=== PATIENT | male | born 1950 | race Caucasian/White ===

== ENCOUNTER 2023-07-27 01:46 | Outpatient (RCR) | payer OTHER, SELFPAY ==
--- OUTSIDE RECORDS SUMMARY | 2023-07-25 09:01 | XMS_ITS | Continuity of Care Document ---
Author Name Unknown Organization [facility] Address [address] [place] [address] Care Team Providers Care Lockstitch Hemmer Name Role Phone Gregory Masterson Primary Care Physician Encounter [facility] Date(s): 06/09/23 - 06/09/23 [facility] [address] [place] [address] Discharge Disposition: Home Allergies, Adverse Reactions, Alerts No Known Medication Allergies Assessment and Plan Future Appointments Future Scheduled Tests Radiology* CT Abdomen and Pelvis w/ Contrast 06/09/23 Immunizations Given and Recorded Vaccine Date Status Refusal Reason SARS-CoV-2 (COVID-19) mRNA-1273 vaccine 12/18/20 R ecorded SARS-CoV-2 (COVID-19) mRNA-1273 vaccine 11/17/20 R ecorded tetanus/diphth/pertuss (Tdap) adult/adol 11/17/12 Recorded tetanus-diphth toxoids (Td) adult/adol 03/03/99 Re corded Medications losartan 100 mg oral tablet 100 mg = 1 tab, Oral, Daily, # 30 tab, 0 Refill(s) Start Date: 04/22/22 Status: Ordered Problem List Condition Confirmation Course Effective Dates Status Health St atus Informant Benign essential hypertension Confirmed 01/29/19 Active Calcific tendinitis of shoulder Confirmed Active Dizziness and giddiness Confirmed Active Increased frequency of urination Confirmed 10/30/18 Active Raised prostate specific antigen Confirmed 10/22/21 Active Shoulder joint pain Confirmed Active Social History Social History Type Response Tobacco Former tobacco user Tobacco Use:. 1 Sex Male 1Pt quit 35 years ago Patient Care team information Care Team Personnel Name: Gregory Masterson PA Position: Physician Member Role: Primary Care Physician Address: Address: [address] [place] [id number]
--- OUTSIDE RECORDS SUMMARY | 2023-07-25 09:01 | XMS_ITS | Continuity of Care Document ---
Author Name Unknown Organization [facility] Address [address] [place] [address] Care Team Providers Care Finisher Merchant Products Name Role Phone Gregory Masterson Primary Care Physician [phone] Encounter [facility] Date(s): 06/06/23 - 06/06/23 [facility] [address] [place] [address] Discharge Disposition: Home or Self Care Attending Physician: Gregory Masterson Admitting Physician: Gregory Masterson Referring Physician: Gregory Masterson Allergies, Adverse Reactions, Alerts No Known Medication Allergies Assessment and Plan Future Appointments Future Scheduled Tests Radiology* CT Abdomen w/ Contrast 06/06/23 Immunizations Given and Recorded Vaccine Date Status [...] 10/22/21 Active Shoulder joint pain Confirmed Active Results Laboratory List Name Date Automated Diff 06/06/23 CBC w/ Diff 06/06/23 Comprehensive Metabolic Panel (CMP) PSA Screen 06/06/23 Most recent to oldest [Reference Range]: 1 WBC [5.0-10.0 x10^3/mcL] 6.7 x10^3/mcL (06/06/23 2:51 PM) RBC [4.6-6.0 x10^6/mcL] 4.8 x10^6/mcL (06/06/23 2:51 PM) Neutro Auto [40.0-75.0 %] 65.3 % (06/06/23 2:51 PM) Lymph Auto [20.0-50.0 %] 21.2 % (06/06/23 2:51 PM) [place] Auto [2.0-15.0 %] 10.1 % (06/06/23 2:51 PM) Basophil Auto [0.0-1.0 %] 0.6 % (06/06/23 2:51 PM) BUN [7-18 mg/dL] 11 mg/dL (06/06/23 2:51 PM) Glucose Level [74-106 mg/dL] 96 mg/dL (06/06/23 2:51 PM) Potassium Level [3.5-5.1 mmol/L] 4.0 mmo l/L (06/06/23 2:51 PM) MCV [80.0-96.0 fL] 89.4 fL (06/06/23 2:51 PM) AST [15-37 unit/L] 11 unit/L *LOW* (06/06/23 2:51 PM) ALT [16-63 unit/L] 14 unit/L *LOW* (06/06/23 2:51 PM) MCHC [31.0-35.0 g/dL] 34.0 g/dL (06/06/23 2:51 PM) Sodium Level [136-145 mmol/L] 140 mmol/L (06/06/23 2:51 PM) Hct [41.0-51.0 %] 42.9 % (06/06/23 2:51 PM) Calcium Level [8.5-10.1 mg/dL] 8.7 mg/dL (06/06/23 2:51 PM) Albumin Level [3.4-5.0 g/dL] 3.4 g/dL (06/06/23 2:51 PM) Protein Total [6.4-8.2 g/dL] 6.9 g/dL (06/06/23 2:51 PM) MCH [26.0-32.0 pg] 30.4 pg (06/06/23 2:51 PM) Neutro Absolute 4.4 x10^3/mcL *NA* (06/06/23 2:51 PM) Bilirubin Total [0.2-1.0 mg/dL] 0.3 mg/d L (06/06/23 2:51 PM) Hgb [14.0-18.0 g/dL] 14.6 g/dL (06/06/23 2:51 PM) Alk Phos [46-146 unit/L] 122 unit/L (06/06/23 2:51 PM) Platelets [130-450 x10^3/mcL] 212 x10^3/ mcL (06/06/23 2:51 PM) CO2 [21-32 mmol/L] 28 mmol/L (06/06/23 2:51 PM) eGFR Non-AA [>=60] 77 (06/06/23 2:51 PM) eGFR AA [>=60] 77 (06/06/23 2:51 PM) Chloride Level [98-107 mmol/L] 106 mmol/ L (06/06/23 2:51 PM) RDW-CV [11.5-14.5 %] 12.3 % (06/06/23 2:51 PM) Imm Gran Auto [0.0-0.9 %] 0.1 % (06/06/23 2:51 PM) Creatinine Level [0.70-1.30 mg/dL] 1.03 mg/dL (06/06/23 2:51 PM) PSA Total Screening [0.00-4.00 ng/mL] 6. 92 ng/mL 1 *HI* (06/06/23 2:51 PM) Eos, Auto [1.0-6.0 %] 2.7 % (06/06/23 2:51 PM) 1Interpretive Data: The testing method is an heterogeneous enzyme Immunoassay manufactured by [employer] and performed on the [employer] system. Values obtained with different assay methods or kits may be different and cannot be used interchangeably. Test results cannot be interpreted as absolute evidence for the presence or absence of malignant disease. Social History Social History Type Response Tobacco Former tobacco user Tobacco Use:. 1 Sex Male 1Pt quit 35 years ago Patient Care team information Care Team Personnel Name: Gregory Masterson Position: Physician Member Role: Primary Care Physician Address: Address: [address] [place] [phone]
--- OUTSIDE RECORDS SUMMARY | 2023-07-25 09:01 | XMS_ITS | Continuity of Care Document ---
Author Name Unknown Organization [facility] Address [address] [place] [address] Care Team Providers Care Rn Mds Coordinator Name Role Phone Gregory Masterson Primary Care Physician Encounter [facility] Date(s): 06/13/23 - 06/13/23 [facility] [address] [place] [address] Discharge Disposition: Home Allergies, Adverse Reactions, Alerts No Known Medication Allergies Assessment and Plan Future Appointments Future Scheduled Tests Radiology* CT Brain/Head w/ Contrast 06/13/23 * CT Chest w/ Contrast 06/13/23 * CT Abdomen and Pelvis w/ Contrast 06/09/23 Immunizations Given and Recorded Vaccine Date Status Refusal Reason SARS-CoV-2 (COVID-19) mRNA-1273 vaccine 12/18/20 R ecorded SARS-CoV-2 (COVID-19) mRNA-1273 vaccine 11/17/20 R ecorded tetanus/diphth/pertuss (Tdap) adult/adol 11/17/12 Recorded tetanus-diphth toxoids (Td) adult/adol 03/03/99 Re corded Medications ciprofloxacin 500 mg oral tablet See Instructions, Take 2 tabs at 4 pm, 7pm and 11 pm the day before surgery, # 6 tab, 0 Refill(s), Pharmacy: [id number], 175, cm, 06/13/23 10:15:00 EDT, Height/Length Dosing, 84, kg, 06/13/23 10:15:00 EDT, Weight Dosing Start Date: 06/13/23 Status: Ordered losartan 100 mg oral tablet 100 mg = 1 tab, Oral, Daily, # 30 tab, 0 Refill(s) Start Date: 04/22/22 Status: Ordered metroNIDAZOLE 500 mg oral tablet See Instructions, Take 2 tabs at 4 pm, 7pm and 11 pm the day before surgery, # 6 tab, 0 Refill(s), Pharmacy: [id number], 175, cm, 06/13/23 10:15:00 EDT, Height/Length Dosing, 84, kg, 06/13/23 10:15:00 EDT, Weight Dosing Start Date: 06/13/23 Status: Ordered Problem List Condition Confirmation Course [...] Member Role: Primary Care Physician Address: Address: [address] [place] [phone] [place] Care Team Related Persons Name: PIYUSH SOLARES
--- OUTSIDE RECORDS SUMMARY | 2023-07-25 09:01 | XMS_ITS | Continuity of Care Document ---
Author Name Unknown Organization [facility] Address [address] [place] [address] Care Team Providers Care Bacon Stringer Name Role Phone Gregory Masterson Primary Care Physician [phone] Encounter [facility] Date(s): 06/17/23 - 06/24/23 [facility] [address] [place] [address] Encounter Diagnosis Mass of colon(Discharge Diagnosis) - 06/17/23 Change in bowel habit(Discharge Diagnosis) - 06/17/23 Abdominal carcinomatosis(Discharge Diagnosis) - 06/17/23 Benign hypertension(Discharge Diagnosis) - 06/20/23 Discharge Disposition: Home or Self Care Attending Physician: Simone Gutierres MD Admitting Physician: Simone Gutierres MD Referring Physician: Simone Gutierres MD Allergies, Adverse Reactions, Alerts No Known Medication Allergies Assessment and Plan Future Appointments Future Scheduled Tests Radiology* CT Brain/Head w/ + w/o Contrast 06/16/23 * CT Chest w/ Contrast 06/13/23 * CT Abdomen and Pelvis w/ Contrast 06/09/23 Functional Status 06/22/23 Lunch Percent 25 06/22/23 Personal Care Provided Gown change, Hair care, Linen change, Shampoo, Shower, Underpad change 06/20/23 Living Environment No Living Environmen t Information Available Lives In Single level home 1 Lives With Alone Living Situation Home independently Home Barriers None Patient's Responsibilities Caregiver for pet, Other: Reports being (I) with all needs prior to hospitalization. 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 06/19/23 Anti-Embolism Device Activity: Removed Anti-Embolism Device Removal Reason: Act ivity 06/17/23 Anti-Embolism Site Condition: No complic ations 06/17/23 Family Member Travel History No recent t ravel Recent Travel History No recent travel Other exposure to Infectious Disease Non e 1Result Comment: Single level log home with loft. Immunizations Given and Recorded Vaccine Date Status Refusal Reason SARS-CoV-2 (COVID-19) mRNA-1273 vaccine 12/18/20 R ecorded SARS-CoV-2 (COVID-19) mRNA-1273 vaccine 11/17/20 R ecorded tetanus/diphth/pertuss (Tdap) adult/adol 11/17/12 Recorded tetanus-diphth toxoids (Td) adult/adol 03/03/99 Re corded Medications Dilaudid 2 mg oral tablet 2 mg = 1 tab, Oral, every 4 hr, PRN as needed for pain, # 10 tab, 0 Refill(s), Pharmacy: [facility], 175, cm, 06/17/23 14:35:00 EDT, Height/Length Dosing, 81.4, kg, 06/17/23 14:35:00 EDT, Weight Dosing Start Date: 06/24/23 Stop Date: 07/01/23 Status: Ordered losartan 100 mg oral tablet 100 mg = 1 tab, Oral, Daily, # 30 tab, 0 Refill(s) Start Date: 04/22/22 Status: Ordered ondansetron 4 mg oral tablet, disintegrating 4 mg = 1 tab, Oral, every 8 hr, PRN as needed for nausea/vomiting, # 12 tab, 0 Refill(s), Pharmacy:[facility], 175, cm, 06/17/23 14:35:00 EDT, Height/Length Dosing, 81.4, kg, 06/17/23 14:35:00 EDT, Weight Dosing Start Date: 06/24/23 Stop Date: 07/01/23 Status: Ordered pantoprazole 20 mg oral delayed release tablet 20 mg = 1 tab, Oral, Daily, # 21 tab, 0 Refill(s), Pharmacy: [facility], 175, cm, 06/17/23 14:35:00 EDT, Height/Length Dosing, 81.4, kg, 06/17/23 14:35:00 EDT, Weight Dosing Start Date: 06/24/23 Stop Date: 07/15/23 Status: Ordered Urinoziil Prostate Health Complex Classic 1 cap, Oral, Daily, 0 Refill(s) Start Date: 06/16/23 Status: Ordered Problem List Condition Confirmation Course Effective Dates Status Health St atus Informant Benign essential hypertension Confirmed 01/29/19 Active Benign prostatic hyperplasia Confirmed 05/22/17 Active Calcific tendinitis of shoulder Confirmed Active Dizziness and giddiness Confirmed Active Dyspnea Confirmed 05/22/17 Active Dysuria Confirmed 05/22/17 Active Increased frequency of urination Confirmed 10/30/18 Active Raised prostate specific antigen Confirmed 10/22/21 Active Shoulder joint pain Confirmed Active Vitamin D deficiency Confirmed 05/22/17 Active Procedures Procedure Date Related Diagnosis Body Site Status Shoulder repair Completed Results Laboratory List Name Date Basic Metabolic Panel (BMP) 06/21/23 Magnesium Level 06/21/23 SARS-CoV-2 (COVID-19) RNA (ID Now) [facility] 06/17/23 CEA [facility] 06/17/23 ABO/Rh 06/17/23 Antibody Screen Gel 06/17/23 Most recent to oldest [Reference Range]: 1 BUN [7-18 mg/dL] 14 mg/dL (06/21/23 7:28 AM) ABO/Rh Type O NEG *Unknown* (06/17/23 7:17 AM) Glucose Level [74-106 mg/dL] 108 mg/dL *HI* (06/21/23 7:28 AM) Potassium Level [3.5-5.1 mmol/L] 3.5 mmo l/L (06/21/23 7:28 AM) Sodium Level [136-145 mmol/L] 141 mmol/L (06/21/23 7:28 AM) Calcium Level [8.5-10.1 mg/dL] 8.8 mg/dL (06/21/23 7:28 AM) Magnesium Level [1.8-2.4 mg/dL] 2.0 mg/d L (06/21/23 7:28 AM) CO2 [21-32 mmol/L] 28 mmol/L (06/21/23 7:28 AM) eGFR Non-AA [>=60] 81 (06/21/23 7:28 AM) eGFR AA [>=60] 81 (06/21/23 7:28 AM) Chloride Level [98-107 mmol/L] 106 mmol/ L (06/21/23 7:28 AM) Creatinine Level [0.70-1.30 mg/dL] 0.99 mg/dL (06/21/23 7:28 AM) Antibody Screen Gel Negative [facility] (06/17/23 7:17 AM) SARS-CoV-2 (COVID-19) RNA (ID Now) [Not Detected] Not Detected (06/17/23 12:46 PM) CEA [facility] [See Note ng/mL] 28.3 ng/mL 1 *NA* (06/17/23 7:58 AM) Path Report [facility] (See below) 2 *NA* (06/17/23 9:39 AM) 1Result Comment: % Distribution of CEA (ng/mL): 0.0 - 2.5 in 98.2% of Nonsmokers and 87.3% of Smokers 2.6 - 5 in 1.8% of Nonsmokers and 8% of Smokers 5.1 - 10.1 in 4.7% of Smokers NOTE: Serum CEA concentration should not be interpeted as absolute evidence for the presence or absence of malignant disease. Assayed on Siemens ADVIA Centaur XPT using chemiluminescent technology. Values obtained by different assay methods cannot be used interchangeably. [id number]: must be drawn PREOP Test performed [place] [address] 2Result Comment: NOTE TO PATIENT The following pathology results have been interpreted by your pathologist and may be available to you before your health provider has had the opportunity to review them. Please allow time for your provider to receive these results and explore management options, if applicable. AP FINAL DIAGNOSIS A. COLON, CECUM, MASS, BIOPSY: - Fragments of tubulovillous adenoma. B. 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 - AJCC 8th Edition Staging: pT4a, pN1b, pM1c. See synoptic report. - See comment. FINAL DIAGNOSIS COMMENT RESULTS OF IMMUNOHISTOCHEMICAL STAINING: Retained expression of MLH1, PMS2, MSH2 and MSH6 INTERPRETATION: These results are indicative of normal DNA mismatch repair function within the tumor. This patient most likely does not have Higgins syndrome. However, it is important to note that 3-10% of Higgins syndrome patients may reveal retained expression of mismatch repair proteins due to mutation in other genes. Hence these findings should be interpreted in the context of family and clinical history. If results do not match clinicopathologic findings, molecular testing (specifically microsatellite instability by PCR) can be ordered upon obtaining preauthorization or an advanced beneficiary notice. ANTIBODY (CLONE) (BLOCK): RESULT MLH1 (M1, [place]) (block B9): Retained expression in tumor PMS2 (A16-4, [place]) (block B9): Retained expression in tumor MSH2 (Y052-2289, [place]) (block B9): Retained expression in tumor MSH6 (SP93, [place]) (block B9): Retained expression in tumor Internal controls: Adequate NOTE: One or more of the reagents used in immunohistochemical testing in this case may not have been cleared or approved by the U.S. Food and Drug Administration (FDA). The FDA has determined that such clearance or approval is not necessary. These tests are used for clinical purposes. They should not be regarded as investigational or for research. These reagents' performance characteristics have been determined by [facility] and/or by the referring laboratory. The positive and negative controls worked appropriately. This laboratory is certified under the Clinical Laboratory Improvement Amendments of 1988 (CLIA-88) as qualified to perform high complexity clinical laboratory testing. The solid tumor gene panel test has been ordered. The results of this test will be documented in a separate report. Actuarial Associate slides of this case were reviewed at the gastrointestinal/liver intradepartmental consultation conference. (, JK, DK) ATTESTATION There was significant resident/fellow involvement in the diagnostic evaluation of this case. By the signature below, the attending physician certifies that they have personally conducted a gross and/or microscopic examination of the described specimens and rendered or confirmed the above diagnosis. at 1629 SYNOPTIC CHECKLIST COLON AND RECTUM: Resection, Including Transanal Disk Excision of Rectal Neoplasms COLON AND RECTUM: RESECTION - B 8th Edition - Protocol posted: 04/24/2022 SPECIMEN Procedure: Right hemicolectomy TUMOR Tumor Site: Ascending colon Histologic Type: Mucinous adenocarcinoma Histologic Grade: G2, moderately differentiated Tumor Size: Greatest dimension (Centimeters): 6.0 cm Tumor Extent: Invades visceral peritoneum Macroscopic Tumor Perforation: Not identified Lymphovascular Invasion: Not identified Perineural Invasion: Not identified Treatment Effect: No known presurgical therapy MARGINS Margin Status for Invasive Carcinoma: Invasive carcinoma present at margin Margin(s) Involved by Invasive Carcinoma: Proximal Margin(s) Involved by Invasive Carcinoma: Radial (circumferential) or mesenteric Margin Status for Non-Invasive Tumor: Not applicable REGIONAL LYMPH NODES Regional Lymph Node Status: : Tumor present in regional lymph node(s) Number of Lymph Nodes with Tumor: 2 Number of Lymph Nodes Examined: 12 Tumor Deposits: Present Number of Tumor Deposits: 2 DISTANT METASTASIS Distant Site(s) Involved: Peritoneum, Omentum PATHOLOGIC STAGE CLASSIFICATION (pTNM, AJCC 8th Edition) Reporting of pT, pN, and (when applicable) pM categories is based on information available to the pathologist at the time the report is issued. As per the AJCC (Chapter 1, 8th Ed.) it is the managing physician's responsibility to establish the final pathologic stage based upon all pertinent information, including but potentially not limited to this pathology report. pT Category: pT4a pN Category: pN1b pM Category: pM1c ADDITIONAL FINDINGS Additional Findings: None identified CLINICAL HISTORY Cecal mass, carcinomatosis GROSS DESCRIPTION A. Received in formalin labelled with proper patient identification (initials G, L) and cecal mass is a 0.4 x 0.3 x 0.1 cm irregular pale daly soft tissue. Submitted in toto in A1. B. Received in formalin labelled with proper patient identification (initials G, L) and right colon and greater omentum is a 25cm segment of right colon (2 cm ileum +23 cm colon with a moderate amount of attached fat (3.5 cm in depth). The serosa is dark daly-purple and the fat is focally hemorrhagic. The cecal serosa is remarkable for a 2.3 x 1.3 cm cystic/nodular lesion (inked in blue). There is a 5.2 cm in length, 0.6 cm in diameter appendix, firmly adhered to the fat. There is some subtle nodularity at the proximal end and fat alongside (inked black) The the proximal and resection ends are stapled. Opening shows a 6.0 x 4.7 x 1.0 cm bosselated/fungating slightly friable red-daly tumor in the cecal pouch/cecum, 2.7 cm from the proximal resection margin, 15 cm from the distal resection margin, 0.7 cm from the circumferential margin and 4.5 cm from the mesenteric root. The tumor involves much of the ileocecal valve. It does not appear to involve the appendiceal os. Sectioning through the lesion shows a soft pink to firm white mucinous cut surface with invasion through the wall into the fat and a few satellite areas abutting the peritoneal surface. The lesion obliterates the appendiceal tip. The rest of the ileal and colonic mucosa are unremarkable the ileum is 4 cm in circumference and the colon is 7.5 cm. The fat is sectioned and palpated showing few nodes ranging from 0.3 cm-0.7 cm. There is a piece of indurated congested omental apron caked by tumor, measuring overall 25 x 11.5 x 3.5 cm. Sectioning shows multiple nodules measuring up to 3 cm in greatest dimension. There is also diffuse fat necrosis. Also received is a 4.5 x 2.3 x 1.7 cm piece of bowel with ligia and exposed dark daly mucosa. There are also 2 hemorrhagic indurated pieces of fatty tissue measuring together 5.5 x 3.5 x 2.2 cm. Sectioning shows focal areas of what looks like fat necrosis. Actuarial Associate sections are submitted as follows: BLOCK MERINO B1- proximal and distal resection margins, shaved, 2 pieces B2- shaved mesenteric resection margin B3- ICV B4- appendix cross-sections x3 B5- appendiceal os B6- appendiceal tip B7- tumor to inked serosa (blue) and fat (partial circumferential margin-black) B8-B9- tumor to fat and inked serosa/nodular area, continuous section B10- uninvolved colon B11- fat with lymph node, satellite nodules, vessels (peritoneal surface inked in black) B12- one node, trisected B13- nodes/possible nodes x4 B14- nodes/possible nodes x3 B15-B22- fat with possible microscopic node B23-B24- omentum, 3 pieces B25- additional fragment of fatty tissues x2 and segment of bowel, 3 pieces BALDO Chilel(ASCP) 06/19/2023 0:36 TRAINEE/RESIDENT/FELLOW: Dillon Alston MD AP PERFORMING LAB [facility] End of Report Disclaimers: 1) Reports generated via electronic interface contain original data; however they are lacking the format of the original report. Caution should be taken when reading/interpreting unformatted reports. 2) Please reference the paper report if the text (End of Report) is not displayed. [id number]: Cecal Mass Biopsy, Right Colon and greater Omentum\E\.br\E\One Container Test performed [place] [address] Vital Signs Most recent to oldest [Reference Range]: 1 2 3 Temperature Temporal Artery [36-38 Deg C] 36.7 Deg C (06/24/23 10:20 AM) 36.7 Deg C (06/24/23 6:37 AM) 36.6 Deg C (06/24/23 1:17 AM) Temperature Temporal Artery (DegF) [97.3-100 Deg F] 98.24 Deg F (06/18/23 2:40 PM) 97.16 Deg F *LOW* (06/17/23 1:30 PM) 95.9 Deg F *LOW* (06/17/23 10:58 AM) Peripheral Pulse Rate [60-100 bpm] 72 bpm (06/24/23 10:20 AM) 69 bpm (06/24/23 6:37 AM) 69 bpm (06/24/23 1:17 AM) Heart Rate Monitored [60-100 bpm] 87 bpm (06/17/23 2:19 PM) 80 bpm (06/17/23 1:30 PM) 88 bpm (06/17/23 1:15 PM) Respiratory Rate [12-24 br/min] 16 br/min (06/24/23 10:20 AM) 17 br/min (06/24/23 6:37 AM) 18 br/min (06/24/23 1:17 AM) Blood Pressure [90-140/60-90 mmHg] 153/87mmHg *HI* (06/24/23 10:20 AM) 177/93mmHg *HI* (06/24/23 6:37 AM) 170/90mmHg *HI* (06/24/23 1:17 AM) Mean Arterial Pressure, Cuff [65-140 mmHg] 78 mmHg (06/17/23 1:30 PM) 74 mmHg (06/17/23 1:15 PM) 73 mmHg (06/17/23 1:00 PM) Mean Arterial Pressure Cuff 105 mmHg (06/24/23 10:20 AM) 111 mmHg (06/24/23 6:37 AM) 111 mmHg (06/23/23 6:39 PM) Blood Pressure Location Left arm (06/18/23 6:40 AM) Weight 81.2 kg (06/24/23 6:37 AM) 86.9 kg (06/19/23 6:25 AM) 81.400 kg (06/17/23 2:34 PM) Weight Dosing 81.400 kg (06/17/23 2:34 PM) 81.400 kg (06/17/23 6:44 AM) Weight Estimated 84.00 kg (06/16/23 1:20 PM) Height 175.000 cm (06/17/23 2:34 PM) 175.000 cm (06/17/23 6:44 AM) Height/Length Dosing 175.000 cm (06/17/23 2:34 PM) 175.000 cm (06/17/23 6:44 AM) Body Mass Index 26.580 kg/m2 (06/17/23 2:34 PM) 26.580 kg/m2 (06/17/23 6:44 AM) Social History Social History Type Response Tobacco Former tobacco user Tobacco Use:. 1 Sex Male 1Pt quit 35 years ago Hospital Discharge Instructions Patient Education 06/24/2023 08:55:29 MK [facility] ([facility]) POST- OPERATIVE DISCHARGE INSTRUCTIONS Follow-up in the [facility] office in about 7-10 days. Please call [phone] to schedule/confirm appointment. Wound Care Keep incisions clean and dry. You may shower and wash gently with soap and water. No dressings necessary. Gwinner will be removed during postop visit. No tub baths or swimming until the wound has completely closed. Report to your physician any leakage of pus from the incision or increased redness or swelling around the incision. Activity No lifting greater than 10 lbs. or strenuous activity for 4 weeks. Walking, light activity is encouraged. Continue using incentive spirometer at home. Diet Eat a low fiber diet for 3-4 days, then transition back to a regular diet. As we discussed, focus on avoiding bulky food or raw foods/vegetables. No need to read food labels. If Constipated: Take prune juice OR Miralax daily until normal bowel movements return. Pain Control & Medications Continue taking stool softeners, such as Docusate (typically 100mg 1-2x per day) Take over the counter pain medication for pain control (acetaminophen AND ibuprofen can be taken simultaneously). If you need additional medication for pain control, please use the prescribed opioid (Dilaudid). Ice packs to incisions for 20 minutes every hour as needed. Simethicone (Gas-X) as needed for gas pain. Zofran (ondansetron) for nausea as needed. Miscellaneous Report any fever >101?? F. Report any problems with urination to your physician. For mild irritation at IV site: a. Apply warm, moist pack to area for 20 minutes four times a day for 2-3 days. b. Call doctor for persistent redness and/or drainage at IV site. In the event of any problems after surgery, do not hesitate to contact your doctor, [facility] , or the Emergency Room at [phone]. Follow Up Care 06/16/2023 10:59:42 With:Simone Gutierres MD Address: [address] [address]- When:07/04/2023 08:15:00 Comments:Hospital follow up With:Gregory Masterson Address: [address] [place] [id number] When:07/04/2023 09:20:00 Comments:Hospital follow up Discharge instructions * Toshia Marina: PERFORM Event Display: Discharge Instructions Authored Date: [id number] AMADO SOLARES :1950 Age:73 years Sex:Male Visit Date:06/17/2023 Primary Care Physician: Gregory Masterson Hospital Discharge Instructions We would like to thank you for allowing us to assist you with your healthcare needs. The following includes patient education materials and information regarding your injury/illness. Your Next Steps Follow Up Appointments Follow Up with??Simone Gutierres MD When:??07/04/2023 09:15 AM EDT Why: Hospital follow up Where: [address] [address]- Follow Up with??Gregory Masterson When:??07/04/2023 10:20 AM EDT Why: Hospital follow up Where: [address] [place] [address] Medications What How Much When Instructions Next Dose New HYDROmorphone (Dilaudid 2 mg oral tablet) 1 tab Oral (given by mouth) Every 4 hours as needed for as needed for pain Duration: 7 Days Pickup at [facility] as needed New ondansetron (ondansetron 4 mg oral tablet, disintegrating) 1 tab Oral (given by mouth) Every 8 hours as needed for as needed for nausea/vomiting Duration: 7 Days Pickup at [facility] as needed New pantoprazole (pantoprazole 20 mg oral delayed release tablet) 1 tab Oral (given by mouth) Every day Duration: 21 Days Pickup at [facility] 06/25 @ 0730 Changed multivitamin with minerals (Urinozinc Prostate Health Complex Classic) 1 Capsules Oral (given by mouth) Every day resume Unchanged losartan (losartan 100 mg oral tablet) 1 tab Oral (given by mouth) Every day 06/24 @ 6pm Pharmacy Information [facility]: [address] [place], [place] [id number] [phone] ?? What How Much When Comments Stop Taking ciprofloxacin (ciprofloxacin 500 mg oral tablet) See instructions Take 2 tabs at 4 pm, 7pm and 11 pm the day before surgery ?? Stop Taking metroNIDAZOLE (metroNIDAZOLE 500 mg oral tablet) See instructions Take 2 tabs at 4 pm, 7pm and 11 pm the day before surgery ?? Your Summary Your Care Team Admitting Physician - Simone Gutierres MD Attending Physician - Simone Gutierres MD Primary Care Physician - Gregory Masterson Referring Physician - Simone Gutierres MD Your Diagnosis Abdominal carcinomatosis Benign hypertension Change in bowel habit Mass of colon Procedures Performed ???Shoulder repair 06/17/2023- Omenectomy/Right open colectomy with Dr. Simone Gutierres Discharge Vitals Temperature??(Temporal Artery) 98.1 ??F (36.7 ??C) Heart Rate??(Peripheral) 72 Respiratory Rate?? 16 Blood Pressure?? 153/87?? Weight?? 179.05 lb (81.2 kg) Education Materials POST- OPERATIVE DISCHARGE INSTRUCTIONS Follow-up in the [facility] office in about 7-10 days. Please call [phone] to schedule/confirm appointment. ? Wound Care Keep incisions clean and dry. You may shower and wash gently with soap and water. No dressings necessary. Ligia will be removed during postop visit. No tub baths or swimming until the wound has completely closed. Report to your physician any leakage of pus from the incision or increased redness or swelling around the incision. ? Activity No lifting greater than 10 lbs. or strenuous activity for 4 weeks. Walking, light activity is encouraged. Continue using incentive spirometer at home. ? Diet Eat a low fiber diet for 3-4 days, then transition back to a regular diet. As we discussed, focus on avoiding bulky food or raw foods/vegetables. No need to read food labels. If Constipated: Take prune juice OR Miralax daily until normal bowel movements return. ? Pain Control & Medications Continue taking stool softeners, such as Docusate (typically 100mg 1-2x per day) Take over the counter pain medication for pain control (acetaminophen AND ibuprofen can be taken simultaneously). If you need additional medication for pain control, please use the prescribed opioid (Dilaudid). Ice packs to incisions for 20 minutes every hour as needed. Simethicone (Gas-X) as needed for gas pain. Zofran (ondansetron) for nausea as needed. ? Miscellaneous Report any fever >101?? F. Report any problems with urination to your physician. For mild irritation at IV site: a. Apply warm, moist pack to area for 20 minutes four times a day for 2-3 days. b. Call doctor for persistent redness and/or drainage at IV site. In the event of any problems after surgery, do not hesitate to contact your doctor, [facility] , or the Emergency Room at [phone]. Patient/Actuarial Associate Signature Patient Name:AMADO SOLARES I have received this information and my questions have been answered. Patient/Actuarial Associate Name: Patient/Actuarial Associate Signature: Relationship to Patient: Witness Name/Signature: Date: Electronically Signed on: 06/24/2023 11:19 EDTSigned by:MARTHA Consult note * Quinotn Spann DO: PERFORM Event Display: Consultation Note Generic Authored Date: [id number] AMADO SOLARES :1950 Age:73 years Sex:Male Visit Date:06/17/2023 Primary Care Physician: Gregory Masterson Chief Complaint Abdominal pain History of Present Illness 73-year-old man??with a history of??hypertension??has had surgery??for stage IV??colon cancer and has undergone??colectomy. ?? Today it was noted that his??blood pressure??was high.?? His home medication??which is??losartan was restarted. ?? He has been getting scheduled ketorolac for pain control. ?? Kidney function was normal when last checked??a week ago. ?? Plan is for him to discharge to home on Friday and follow-up with oncology as an outpatient. ?? He reports his twin sister of lung cancer??almost a year ago and this is very??emotionally difficult for him. ?? He tells me his blood pressure typically runs about 170/100??although it has been better??here??on no medication. ?? He has not had any difficulty??with symptoms attributable to hypertension. Review of Systems Denies chest pain, dyspnea, palpitations, dizziness, headaches, sudden visual changes, cough, or new peripheral edema.?? Expected abdominal discomfort. Physical Exam Vitals & Measurements T:??36.8?C ??(Temporal Artery)?? TMIN:??36.4?C ??(Temporal Artery)?? TMAX:??37.4?C ??(Temporal Artery)?? HR:??71??(Peripheral)?? RR:??18?? BP:??172/88?? SpO2:??96%?? Pain Score:??3?? O2 Therapy:??Room air?? General: Alert and oriented patient who appears stated age in no acute distress; ??apparent full command of cognitive faculties HEENT: Normocephalic; normal facial movements; extraocular muscle movements apparently normal; necksupple without adenopathy; no evidence of thyromegaly or nodularity Cardiovascular: S1-S2; ??no noted murmurs, rubs or gallops Pulmonary: Good air movement bilaterally with no wheezes, rales or rhonchi Skin: Warm and dry; no rashes Neurological: Moves all extremities; no focal deficits; cranial nerves 3, 4, 6, 7, 8, 11, and 12 within normal limits Musculoskeletal: No edema; no obvious arthropathy Psych: normal affect; apparently euthymic; no abnormal thoughts or hallucinations evident.?? Assessment/Plan 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 Stage IV colon cancer??with colectomy done to avert??impending??obstruction. ?? Seems to be recovering well from his surgery. ?? He will follow-up with oncology as an outpatient. Benign hypertension??I10 Have restarted his losartan. ?? We will check??his kidney function??and electrolytes in the morning to be sure he is tolerating theToradol??and losartan combination. ?? He takes his losartan in the evening. ?? He reports having been on 3 medicines in the past??after??trying to avoid??medicines altogether.?? His blood pressure tends to run higher than goal??regularly, though he has not been willing to increase his blood pressure medicine. Change in bowel habit??R19.4 Mass of colon??K63.89 Orders: losartan, 100 mg = 2 tab, Oral, Tab, every evening, First Dose: 06/21/23 18:00:00 EDT, Routine Basic Metabolic Panel, Blood, Routine, 06/21/23 7:00:00 EDT, Once, Lab Collect Magnesium Level, Blood, Routine, 06/21/23 7:00:00 EDT, Once, Lab Collect Disposition:??We will follow??his blood pressure with you. Problem List/Past Medical History Ongoing Benign essential hypertension Benign prostatic hyperplasia Calcific tendinitis of shoulder Dizziness and giddiness Dyspnea Dysuria Increased frequency of urination Raised prostate specific antigen Shoulder joint pain Vitamin D deficiency Historical General symptom Headache Hypertensive disorder Procedure/Surgical History ???Shoulder repair Medications Inpatient gabapentin, 100 mg= 1 cap, Oral, TID heparin, 5000 units= 1 mL, Subcutaneous, every 8 hr HYDROmorphone, 0.5 mg= 0.5 mL, IV Push, every 2 hr, PRN losartan, 100 mg= 2 tab, Oral, every evening melatonin 3 mg oral tablet, 9 mg= 3 tab, Oral, every night at bedtime ondansetron, 4 mg= 2 mL, IV Push, every 6 hr, PRN simethicone, 80 mg= 1 tab, Oral, every 6 hr, PRN Toradol, 15 mg= 0.5 mL, IV Push, every 6 hr Tylenol, 1000 mg= 100 mL, IV Piggyback, every 6 hr, PRN Home ciprofloxacin 500 mg oral tablet, See Instructions losartan 100 mg oral tablet, 100 mg= 1 tab, Oral, Daily metroNIDAZOLE 500 mg oral tablet, See Instructions Urinozinc Prostate Health Complex Classic, 1 cap, Oral, Daily Allergies No Known Medication Allergies Social History Alcohol Past Electronic Cigarette/Vaping Electronic Cigarette Use: Never. Substance Use Past, Cocaine, Methamphetamines- Comments: none since Tobacco Former tobacco user Tobacco Use:.- Comments: Pt quit 35 years ago Immunizations Vaccine Date Status SARS-CoV-2 (COVID-19) mRNA-1273 vaccine 12/18/2020 Recorded SARS-CoV-2 (COVID-19) mRNA-1273 vaccine 11/17/2020 Recorded tetanus/diphth/pertuss (Tdap) adult/adol 11/17/2012 Recorded tetanus-diphth toxoids (Td) adult/adol 03/03/1999 Recorded Electronically Signed on 06/20/23 06:06 PM Quinton Spann DO correctional manager Note * Toshia Marina: PERFORM Event Display: Case Management Note Authored Date: Discharge instructions/education on postop right sided colectomy reviewed with patient and male friend at bedside. Patient engaged in education and able to verbalize teach back of reviewed material. Patient aware of follow-up appointment with [facility] Dr. Daley on 06/27 at 1045. [place] to be removed atfollow- up appointment. And also aware of follow-up with PCP on 07/04 at 1020. No home health serviceswere ordered upon discharge. Patient mentioned that Dr. Daley said a referral would be made to oncologist Dr. Fajardo however this author did not receive an order to generate this referral I talked with Altagracia Cortez clerical receptionist from [facility] who reports their office will follow-up with Dr. Daley and generate this referral if ordered by physician. Denies any home medications or personal belongings at [facility]. IV has been removed. Reportable signs and symptoms reviewed with patient. Patient aware of new medications for pickup schedule and indication reviewed. Contact informa tion provided. Physical therapy Progress note * Astrid Flores PT: PERFORM, MODIFY, MODIFY, MODIFY, MODIFY, MODIFY, MODIFY, MODIFY, MODIFY, MODIFY, MODIFY, MODIFY, MODIFY, MODIFY, MODIFY, MODIFY Event Display: Physical Therapy Progress Note Authored Date: [id number] Patient ID and date of checked:??Yes, verbally *Current Level of Care:?In-Patient *Admitting Diagnosis: s/p bowel resection *Therapy Diagnosis: impaired mobility (difficulty with sequencing of transfers) Pertinent Medical History: 73-year old patient status post colon resection for colon cancer and carcinomatosis. Active Problems: Benign essential hypertension Benign prostatic hyperplasia Calcific tendinitis of shoulder Dizziness and giddiness Dyspnea Dysuria Increased frequency of urination Raised prostate specific antigen Shoulder joint pain Vitamin D deficiency *Subjective: Upon arrival, patient is standing in his room. Patient is reporting he is having some difficulty with proper sequencing with transfers and moving around in bed and he is looking forward any recommendations that PT may have to make this easier. He reports that he previously had other injuries and installed homemade grab bars throughout his home, and he is thinking of reinstating these. He reports understanding that he will not have the ability to raise and lower his bed at home and will need to practice while here in the hospital. He also reports understanding of rationale for continuing to ambulate/move around as much as possible while in the hospital. He states he is trying not to use his walker unless necessary while here but he knows he will need to use it once he gets home. *Barriers to Learning: None Precautions: Standard *Previous Level of Function: No mobility concerns prior to surgery. Prior Home Setup:??Patient lives alone. His bedroom and bathroom are on the second floor. There areno railings on the stairs. He previously installed homemade grab bars and is considering re-installing once he gets home to assist with mobility. *Current Level of Function: Independent with all ADL's but with slow performance Pain: He reports discomfort in the abdominal region with movement, deep inside Vision/Hearing: WNL Cognition: WNL, A&O x4 Bed Mobility: Independent but slow and cautious with all (scooting/repositioning, supine to sit, sit to supine) PT provided verbal instruction for altered patterning for bed mobility to attempt to avoid additional abdominal discomfort. Transfers: Independent but slow and cautious with all (sit to stand, stand to sit). PT provided verbal instruction for altered patterning for transfers to attempt to avoid additional abdominal discomfort. Ambulation: Independent but slow and cautious with all, observed ambulating short distance in the room without AD but using a RW in the hallways. PT provided education for proper use of RW. Stairs: Not assessed Balance: All WFL Posture: WFL, patient able to stand upright without difficulty and with no AD. *Standardized Testing:??Based on assessment today, 5% impairment due to use of RW for ambulation. *Patient Education: ??Purpose of PT evaluation. Sequencing for transfers and ambulation as per above. PT encouraged the patient to continue ambulating as tolerated throughout the halls while here in the hospital as well as continuing to practice different techniques with transfers and bed mobility.PT encouraged the patient that he is likely to notice significant improvement with mobility over time and with practice. Explained to the patient that he does not require additional PT services at this time. *Physical Therapy Assessment: 73-year-old male patient presents to PT today with concerns about mobility secondary to bowel resection surgery. He is anticipated to be discharged home on Friday. Whilepatient has concerns about his mobility, he demonstrates independence with all transfers, bed mobility and ambulation during today's evaluation. Patient had tendency to avoid any movements that put strain on the abdomen, and PT attempted to provide recommendations for altered patterning with mobility. PT also provided education to the patient regarding the potential benefit of continuing to ambulate as tolerated throughout the halls while here in the hospital for best mobility prognosis and to continue working on modifying his transfers and bed mobility as needed and that this will improve with time. Patient appeared to be receptive of PT recommendations although continuously reports he is concerned about having to activate his core in order to perform mobility of the way the PT suggested. PT does not feel the patient requires additional services and therefore will be discharged from PT today. PT agrees that the best placement for discharge is to the home. *Rehab Potential:?N/A D/C from PT today *Short Term Goals?time frame: N/A D/C from PT today *Half-Way Goals?time frame: N/A D/C from PT today *Patient Goals: N/A D/C from PT today PT Plan of Care:??N/A D/C from PT today *Treatment Duration: N/A D/C from PT today *Treatment Frequency: N/A D/C from PT today *Treatment Intensity: N/A D/C from PT today *Planned Treatment Interventions: N/A *Discharge Plan:?D/C from PT today Discharge Recommendations: No additional PT needed. Appropriate for d/c to home. Skilled Treatment/Training in Safe Performance of/Correct Technique with: Sequencing for transfers and bed mobility as per below. *Procedure Documentation/CPT Charge Codes??for Today???s Assessment: CPT 53624: Low Complexity PT Evaluation:??15 minutes Physical Therapy Evaluation performed. History involves?1-2 personal factors and/or comorbidities. Examination of body system(s) includes?1-2 elements. Clinical presentation is?stable. Clinical decision making is low. CPT 36171: Therapeutic Activities - Direct 1:1 :??10?minutes Therapeutic activities to improve functional performance of ADL specific activities such as: transfers, bed mobility Treatment techniques utilized today included: Assistance with proper sequencing for bed mobility and supine to sit/sit to supine and sit to stand/stand to sit transfers to avoid increased abdominal pressure/pain. *Total Time: 32 minutes *Time In: 11:06 AM *Time Out: 11:38 AM This document was dictated utilizing voice recognition software and may contain inadvertent errors. Electronically Signed on 06/21/23 02:14 PM Astrid Flores PT Progress note * Simone Gutierres MD: PERFORM Event Display: Progress Note - Physician Authored Date: Subjective NAEO Some difficulty with pain control Ambulating Tolerating diet +BM/flatus Medications Inpatient acetaminophen, 1000 mg= 2 tab, Oral, every 6 hr Dilaudid, 2 mg= 1 tab, Oral, every 4 hr, PRN gabapentin, 100 mg= 1 cap, Oral, TID heparin, 5000 units= 1 mL, Subcutaneous, every 8 hr HYDROmorphone, 0.5 mg= 0.5 mL, IV Push, every 2 hr, PRN ibuprofen, 600 mg= 1 tab, Oral, every 6 hr losartan, 100 mg= 2 tab, Oral, every evening melatonin 3 mg oral tablet, 9 mg= 3 tab, Oral, every night at bedtime ondansetron, 4 mg= 2 mL, IV Push, every 6 hr, PRN simethicone, 80 mg= 1 tab, Oral, every 6 hr, PRN Home ciprofloxacin 500 mg oral tablet, See Instructions losartan 100 mg oral tablet, 100 mg= 1 tab, Oral, Daily metroNIDAZOLE 500 mg oral tablet, See Instructions Urinozinc Prostate Health Complex Classic, 1 cap, Oral, Daily Physical Exam Vitals & Measurements T:??37.3?C ??(Temporal Artery)?? TMIN:??36.7?C ??(Temporal Artery)?? TMAX:??37.3?C ??(Temporal Artery)?? HR:??68??(Peripheral)?? RR:??17?? BP:??160/96?? SpO2:??94%?? Pain Score:??5?? O2 Therapy:??Room air?? NAD ?? Non labored breathing ?? RRR ?? Soft, ND, approp TTP, no rebound/guarding Incisions c/d/i, no erythema or evidence of infection Lab Results Labs??(Last four charted values) Na ?141?(JUN 21) K ?3.5?(JUN 21) CO2 ?28?(JUN 21) Cr ?0.99?(JUN 21) BUN ?14?(JUN 21) Glucose Random ?H??108?(JUN 21) Imaging Results (Last 24 Hours) No qualifying data available. Assessment/Plan 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 73 yo M with recent diagnosis of colon cancer, s/p ex lap with right colectomy, omentectomy with primary anastomosis - POD#6 ?? Pathology pending. ?? Doing well overall. Tolerating diet, +bowel function. ?? Pain regimen changed in preparation for discharge, however, had a difficult night. Will make additional changes based on his input. Standing acetaminophen, ibuprofen and Dilaudid PO prn. ?? Continue DVT ppx,??IS, ??ambulation, current diet. ?? Tentative plan for discharge tomorrow morning. Benign hypertension??I10 Change in bowel habit??R19.4 Mass of colon??K63.89 Orders: acetaminophen, 1,000 mg = 2 tab, Oral, Tab, every 6 hr, First Dose: 06/23/23 15:00:00 EDT, Routine HYDROmorphone, 0.5 mg = 0.5 mL, IV Push, Soln, every 2 hr, PRN pain, breakthrough, First Dose: 06/23/23 14:05:00 EDT, Routine Dilaudid, 2 mg = 1 tab, Oral, Tab, every 4 hr for 30 days, PRN pain, severe, First Dose: 06/23/23 14:04:00 EDT, Stop Date: 07/23/23 14:03:00 EDT, Physician Stop, Routine ibuprofen, 600 mg = 1 tab, Oral, Tab, every 6 hr for 5 days, First Dose: 06/23/23 15:00:00 EDT, Stop Date: 06/28/23 14:59:00 EDT, Physician Stop, Routine Problem List/Past Medical History Ongoing Benign essential hypertension Benign prostatic hyperplasia Calcific tendinitis of shoulder Dizziness and giddiness Dyspnea Dysuria Increased frequency of urination Raised prostate specific antigen Shoulder joint pain Vitamin D deficiency Historical General symptom Headache Hypertensive disorder Procedure/Surgical History ???Shoulder repair Allergies No Known Medication Allergies Social History Alcohol Past Electronic Cigarette/Vaping Electronic Cigarette Use: Never. Substance Use Past, Cocaine, Methamphetamines- Comments: none since Tobacco Former tobacco user Tobacco Use:.- Comments: Pt quit 35 years ago Electronically Signed on 06/23/23 02:11 PM Simone Gutierres MD * Quinton Spann DO: PERFORM Event Display: Progress Note - Physician Authored Date: [id number] AMADO SOLARES :1950 Age:73 years Sex:Male Visit Date:06/17/2023 Primary Care Physician: Zelalem, Gregory Mehdi PA Subjective Discussed his blood pressure regimen at length. ?? Did give him a dose of Aldactone??this morning to see if he could tolerate it given his??long description of the many medicines he has tried in the past and not found tolerable. ?? He seems of tolerated the 1 dose??and he will think about??whether he wants to start this or not. ?? It's not clear whether he is having symptoms of high blood pressure although has been having headaches which may be. ?? Review of Systems Denies chest pain, dyspnea, palpitations, dizziness, headaches, sudden visual changes, cough, or new peripheral edema. Objective Vitals & Measurements T:??36.8?C ??(Temporal Artery)?? TMIN:??36.0?C ??(Temporal Artery)?? TMAX:??36.8?C ??(Temporal Artery)?? HR:??76??(Peripheral)?? RR:??16?? BP:??165/96?? SpO2:??97%?? Pain Score:??4?? O2 Therapy:??Room air?? Physical Exam General: Alert and oriented man who appears stated age in no acute distress;?full command of cognitive faculties; walking in the jean today with his walker HEENT: Normocephalic; normal facial movements; extraocular muscle movements apparently normal; necksupple without adenopathy; no evidence of thyromegaly or nodularity Cardiovascular: S1-S2; ??no noted murmurs, rubs or gallops Pulmonary: Good air movement bilaterally with no wheezes, rales or rhonchi Abdomen:??Surgical scar in midline abdomen??with ligia in place seems to be healing well; abdomenis nondistended Skin: Warm and dry; no rashes Neurological: Moves all extremities; no focal deficits; cranial nerves 3, 4, 6, 7, 8, 11, and 12 within normal limits Musculoskeletal: No edema; no obvious arthropathy Psych: normal affect; apparently euthymic; no abnormal thoughts or hallucinations evident. 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 ??He is going to see??oncology??on Friday. ?? Surgeon is planning to send him home tomorrow.?? He seems to be progressing well??from his surgery. Benign hypertension??I10 Blood pressure seems to come into the normal range??after the dose of Aldactone but then deric again. ?? He is very leery??of??blood pressure medicines??and so we will not send him home??on anything but his usual losartan. Change in bowel habit??R19.4 Mass of colon??K63.89 Orders: acetaminophen, 1,000 mg = 2 tab, Oral, Tab, every 6 hr, PRN pain, First Dose: 06/22/23 15:21:00 EDT, Routine Electronically Signed on 06/22/23 04:39 PM Quinton Spann DO * Victor Manuel Jaquez DO: PERFORM Event Display: Progress Note - Physician Authored Date: [id number] AMADO SOLARES :1950 Age:73 years Sex:Male Visit Date:06/17/2023 Primary Care Physician: Gregory Masterson Anticipated Discharge Date Friday Subjective Patient is status post??colon resection for colon cancer Review of Systems Constitutional:?No??fevers,?No??chills,?No??sweats Eye:?No??recent visual problems ENT:?No??ear pain,?No??nasal congestion,?No??sore throat Respiratory:?No??shortness of breath,?No??cough Cardiovascular:?No??Chest pain,?No??palpitations,?No??syncope Gastrointestinal:?Nonausea,?No??vomiting,?No??diarrhea Genitourinary:?No??hematuria Josiah/Lymph:?No??bruising tendency,?No??swollen lymph glands Endocrine:?No??excessive thirst,??No??excessive hunger Musculoskeletal:??No??back pain,??No??neck pain,??No??joint pain,??No??muscle pain,??No??decreased range of motion Integumentary:?No??rash,?No??pruritus,?No??abrasions Neurologic: Alert & oriented X 4 Psychiatric:?No??anxiety,?No??depression Objective Vitals & Measurements T:??36.8?C ??(Temporal Artery)?? TMIN:??36.0?C ??(Temporal Artery)?? TMAX:??36.8?C ??(Temporal Artery)?? HR:??80??(Peripheral)?? RR:??16?? BP:??122/76?? SpO2:??98%?? Pain Score:??4?? O2 Therapy:??Room air?? Physical Exam General: Alert and oriented, well nourished,?No??acute distress Eye: PERRL, EOMI,?Normal?conjunctiva HENT: Normocephalic, clear tympanic membranes,?Normal? hearing, moist oral mucosa,?No??scleral icterus,?No??sinus tenderness Neck: Supple, non-tender,?No??carotid bruits,?No??JVD,?No??lymphadenopathy Lungs:??Clear to auscultation?? Respiration:??Non-Labored Heart:?Normal? rate,?Regular??rhythm,?No??murmur,?No??gallop,?No??edema Breast:?No??lumps,?No??bumps,?No??scars,?Normal? nipples Abdomen: Soft, non-tender, non-distended,?Normal? bowel sounds,?No??masses??patient did have additional bowel movement this morning Musculoskeletal:?Normal? range of motion and strength,?No??tenderness,?No??swelling Skin: Skin is warm, dry and pink,?No??rashes,?No??lesions Neurologic: Awake, alert and oriented X4, CN II-XII intact Psychiatric: Cooperative, appropriate mood and affect Assessment/Plan 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 Benign hypertension??I10 Change in bowel habit??R19.4 Mass of colon??K63.89 Patient for possible discharge tomorrow we will continue with??advancing diet and changing pain meds to as needed??patient's brother will be available for pickup in a.m. Electronically Signed on 06/22/23 11:51 AM Victor Manuel Jaquez DO History and physical note * Simone Gutierres MD: PERFORM Event Display: History and Physical Authored Date: [id number] AMADO SOLARES :1950 Age:73 years Sex:Male Visit Date:06/17/2023 Primary Care Physician: Gregory Masterson History of Present Illness Amado is a pleasant 73 yo M who presented recently to the [facility] ED with a chief complaint of abdominal discomfort and changes in bowel habits. ?? Estimates that the approximately 2 to 3 months ago, vague and right-sided.?? Often exacerbated by strenuous physical activity.?? He associates the abdominal pain with a change in the caliber of his stool; now described as thin, long.?? Mild decrease in appetite, he believes might be related to??increased postprandial pain, especially in the evening. ?? Mild nausea without emesis.?? No significant weight loss. ?? Denies hematochezia, melena.?? Previous colonoscopy ~50; this was reportedly normal. ?? CT AP from 06/13/23: IMPRESSION:?? 1. ?? 6 cm cecal mass highly suspicious for colonic malignancy.??Colonoscopy recommended for further assessment.?? 2. ?? Diffuse infiltrative and nodular changes throughout the greater??omentum consistent with omental metastasis.?? 3. ?? Small amount of loculated ascites right mid abdomen possibly??malignant in nature.?? 4. ?? Multiple liver cysts and additional subcentimeter hypodensities??too small to adequately characterize.?? 5. ?? 5 mm pulmonary nodule left lower lobe, nonspecific. Recommend??follow-up CT chest to exclude other pulmonary nodules.?? 6. ?? Additional nonemergent findings as above.? Past medical history notable for hypertension, on losartan 100 mg daily. ?? Denies family history of CRC, IBD or other GI pathology. Sister with lung cancer. Review of Systems Per HPI Physical Exam Vitals & Measurements T:??37.1?C ??(Temporal Artery)?? HR:??85??(Peripheral)?? RR:??16?? BP:??151/94?? SpO2:??96%?? HT:??175.000??cm?? WT:??81.400??kg?? BMI:??26.580?? O2 Therapy:??Room air?? NAD ?? Non labored breathing ?? RRR ?? Soft, ND, mild TTP along right abdomen, unable to appreciate mass Assessment/Plan Change in bowel habit??R19.4 ?? Mass of colon??K63.89 ?? 73 yo M with several weeks of abdominal pain, change in bowel habits and cross sectional imaging concerning for colon concern and possibly locoregional spread. We reviewed the imaging and management options for this large cecal mass. Due to the recent crescendo in symptoms there is concern for impending obstruction. ?? With shared decision making, he has elected to proceed with surgery. ?? Plan for diagnostic colonoscopy; if mass grossly suspicious for malignancy, will biopsy and then proceed with resection (laparoscopic, possibly open,??right hemicolectomy, bilateral TAP block). ?? Needs a preop CEA level. Staging CT chest w/cont in near future. ?? Risk, benefits and alternatives to the procedure were discussed with the patient in detail. Risk, including but not limited to, bleeding, infection, anastomotic leak, creation of ostomy, injury to ureter, injury to bowel (which rarely can be missed during the index operation), temporary of permanent change in bowel habits, need to reoperate, failure to resolve symptoms and pain were discussed with the patient who understood these risks and requested to proceed as planned.? Answered all questions. Patient understood and agreed to this plan. ?? I have reviewed the EMR, including records from PCP, specialists along with review of imaging/diagnostics, which were discussed with the patient where applicable to current presentation. ?? Ordered: Surgical Procedure Booking Request, 07/04/23 9:15:00 EDT, Simone Gutierres MD, Primary Procedure, Diagnostic colonoscopy, lap, possibly open, right colectomy. Bilateral TAP Block, Diagnositic colonoscopy. Lap, possibly open, right colectomy. Bilateral TAP Block dx: cecal mass 2 S... ?? Orders: CEA [facility], Blood, Stat, 06/17/23 7:20:00 EDT, Once, Lab Collect Problem List/Past Medical History Ongoing Benign essential hypertension Calcific tendinitis of shoulder Dizziness and giddiness Increased frequency of urination Raised prostate specific antigen Shoulder joint pain Historical General symptom Headache Hypertensive disorder Procedure/Surgical History ???Shoulder repair Medications Inpatient Dextrose 5% in Lactated Ringers Injection 1,000 mL, 1000 mL, IV lidocaine 1% injectable solution, 5 mg= 0.5 mL, Intradermal, Once Home ciprofloxacin 500 mg oral tablet, See Instructions losartan 100 mg oral tablet, 100 mg= 1 tab, Oral, Daily metroNIDAZOLE 500 mg oral tablet, See Instructions [facility] Allergies No Known Medication Allergies Social History Alcohol Past Electronic Cigarette/Vaping Electronic Cigarette Use: Never. Substance Use Past, Cocaine, Methamphetamines- Comments: none since Tobacco Former tobacco user Tobacco Use:.- Comments: Pt quit 35 years ago Immunizations Vaccine Date Status SARS-CoV-2 (COVID-19) mRNA-1273 vaccine 12/18/2020 Recorded SARS-CoV-2 (COVID-19) mRNA-1273 vaccine 11/17/2020 Recorded tetanus/diphth/pertuss (Tdap) adult/adol 11/17/2012 Recorded tetanus-diphth toxoids (Td) adult/adol 03/03/1999 Recorded Electronically Signed on 06/17/23 07:42 AM Simone Gutierres MD * Carie Simmons: PERFORM Event Display: History and Physical Authored Date: [id number] AMADO SOLARES :1950 Age:73 years Sex:Male Primary Care Physician: Gregory Masterson Patient was found to have a cecal mass Electronically Signed on 06/18/23 08:14 AM Carie Simmons Discharge summary * Simone Gutierres MD: PERFORM, MODIFY Event Display: Discharge Summary Authored Date: [id number] AMADO SOLARES :1950 Age:73 years Sex:Male Visit Date:06/17/2023 Primary Care Physician: Gregory Masterson Hospital Course Discharge Summary ?? Chief Complaint: Abdominal pain, abnormal imaging ?? Admission Date:??06/17/2023 ?? Discharge Date:??06/24/2023 ?? Discharge Location: Home ?? Discharge Services:??None ?? Procedure: Lap converted to open right colectomy, omentectomy ? Hospital Course: Patient was transferred to Med/Surg. Clear liquid diet was ordered. ?? Started passing minimal flatus early in postoperative course, however, first BM on POD#4 (small volume blood mixed with stool). ?? Aparicio catheter was inserted on POD#1 for urinary retention and removed within 24 hours. He was ableto void without difficulty for the remainder of the admission. ?? Diet was advanced in a stepwise fashion over the course of his admission. ?? POD#4 to??6 he had some difficulty with pain control, but ultimately were able to wean off the IV medications and transition to PO regimen that was appropriate. His pain also waned as??bowel function improved which facilitated easier management. ?? Acute on chronic hypertension was identified during this admission. Medicine was consulted who discussed management options. Ultimately decided not to add another medication and he will follow up with his PCP. ?? On the day of discharge he was hemodynamically stable, pain was controlled, tolerating a diet, passing flatus and non-bloody stool, benign abdominal exam and clinically appropriate for discharge. ? Throughout the hospital course patient remained on appropriate??mechanical/chemical thromboprophylaxis. ? Physical Exam Vitals & Measurements T:??36.7?C ??(Temporal Artery)?? TMIN:??36.2?C ??(Temporal Artery)?? TMAX:??37.3?C ??(Temporal Artery)?? HR:??69??(Peripheral)?? RR:??17?? BP:??177/93?? SpO2:??94%?? WT:??81.2??kg?? Pain Score:??5?? O2 Therapy:??Room air?? NAD ?? Non labored breathing ?? RRR ?? Soft, approp TTP, ND, incisions c/d/i with ligia Medications Inpatient acetaminophen, 1000 mg= 2 tab, Oral, every 6 hr Dilaudid, 2 mg= 1 tab, Oral, every 4 hr, PRN gabapentin, 100 mg= 1 cap, Oral, TID heparin, 5000 units= 1 mL, Subcutaneous, every 8 hr HYDROmorphone, 0.5 mg= 0.5 mL, IV Push, every 2 hr, PRN ibuprofen, 600 mg= 1 tab, Oral, every 6 hr losartan, 100 mg= 2 tab, Oral, every evening melatonin 3 mg oral tablet, 9 mg= 3 tab, Oral, every night at bedtime ondansetron, 4 mg= 2 mL, IV Push, every 6 hr, PRN simethicone, 80 mg= 1 tab, Oral, every 6 hr, PRN Tums Ultra, 1000 mg= 2 tab, Oral, every 3 hr, PRN Home ciprofloxacin 500 mg oral tablet, See Instructions losartan 100 mg oral tablet, 100 mg= 1 tab, Oral, Daily metroNIDAZOLE 500 mg oral tablet, See Instructions [facility], 1 cap, Oral, Daily Procedure/Surgical History ???Shoulder repair Social History Alcohol Past Electronic Cigarette/Vaping Electronic Cigarette Use: Never. Substance Use Past, Cocaine, Methamphetamines- Comments: none since Tobacco Former tobacco user Tobacco Use:.- Comments: Pt quit 35 years ago Discharge Plan Discharge home without services. Will continue PO pain medications. No indication for antibiotics. [place] up with [facility] [facility] [place] up with PCP to discuss recent admission and reassess HTN. Reviewed postop instructions verbally in detail. Follow up pathology. ?? 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 Benign hypertension??I10 Change in bowel habit??R19.4 Mass of colon??K63.89 Orders: acetaminophen, 1,000 mg = 2 tab, Oral, Tab, every 6 hr, First Dose: 06/23/23 15:00:00 EDT, Routine HYDROmorphone, 0.5 mg = 0.5 mL, IV Push, Soln, every 2 hr, PRN pain, breakthrough, First Dose: 06/23/23 14:05:00 EDT, Routine Dilaudid, 2 mg = 1 tab, Oral, Tab, every 4 hr for 30 days, PRN pain, severe, First Dose: 06/23/23 14:04:00 EDT, Stop Date: 07/23/23 14:03:00 EDT, Physician Stop, Routine ibuprofen, 600 mg = 1 tab, Oral, Tab, every 6 hr for 5 days, First Dose: 06/23/23 15:00:00 EDT, Stop Date: 06/28/23 14:59:00 EDT, Physician Stop, Routine All Diagnoses This Visit Abdominal carcinomatosis Benign hypertension Change in bowel habit Mass of colon Patient Discharge Condition Stable Discharge Disposition Home without services Patient Education ALYCE Postop colectomy (JACKSON) (JACKSON) Medication Reconciliation New Prescription HYDROmorphone (Dilaudid 2 mg oral tablet)1 tab Oral (given by mouth) every 4 hours as needed as needed for pain for 7 Days. Refills: 0. ?? ondansetron (ondansetron 4 mg oral tablet, disintegrating)1 tab Oral (given by mouth) every 8 hoursas needed as needed for nausea/vomiting for 7 Days. Refills: 0. ?? pantoprazole (pantoprazole 20 mg oral delayed release tablet)1 tab Oral (given by mouth) every day for 21 Days. Refills: 0. ?? Changed multivitamin with minerals ([facility])1 Capsules Oral (given by mouth) every day. ?? Unchanged losartan (losartan 100 mg oral tablet)1 tab Oral (given by mouth) every day. ?? Discontinued ciprofloxacin (ciprofloxacin 500 mg oral tablet)Take 2 tabs at 4 pm, 7pm and 11 pm the day before surgery. Refills: 0. ?? metroNIDAZOLE (metroNIDAZOLE 500 mg oral tablet)Take 2 tabs at 4 pm, 7pm and 11 pm the day before surgery. Refills: 0. Electronically Signed on 06/24/23 10:29 AM Simone Gutierres MD Patient Care team information Care Team Personnel Name: Gregory Masterson Position: Physician Member Role: Primary Care Physician Address: Address: [address] [place] [phone] [place] Care Team Related Persons Name: CALVIN SOLARES Name: JENNY SOLARES Name: PIYUSH SOLARES
--- OUTSIDE RECORDS SUMMARY | 2023-07-25 09:01 | XMS_ITS | Continuity of Care Document ---
Author Name Unknown Organization [facility] Address [address] [place] [address] Care Team Providers Care Funeral Attendant Name Role Phone Gregory Masterson Primary Care Physician [phone] Encounter [facility] Date(s): 06/09/23 - 06/09/23 [facility] [address] [place] [address] Discharge Disposition: Home Allergies, Adverse Reactions, Alerts [...] Care team information Care Team Personnel Name: Zelalem, Gregory Mehdi PA Position: Physician Member Role: Primary Care Physician Address: Address: [address] [place] [phone]
--- OUTSIDE RECORDS SUMMARY | 2023-07-25 09:01 | XMS_ITS | Continuity of Care Document ---
Author Name Unknown Organization [facility] Address [address] [place] [address] Care Team Providers Care Client Retention Specialist Name Role Phone Gregory Masterson Primary Care Physician [phone] Encounter [facility] Date(s): 07/02/23 - 07/02/23 [facility] [address] [place] [address] Encounter Diagnosis Colonic mass(Discharge Diagnosis) - 07/02/23 Discharge Disposition: Home or Self Care Attending [...] pain, # 10 tab, 0 Refill(s), Pharmacy: [facility] #[id number], 175, cm, 06/17/23 14:35:00 EDT, Height/Length [...] for nausea/vomiting, # 12 tab, 0 Refill(s), Pharmacy:[facility] #58, 175, cm, 06/17/23 14:35:00 EDT, Height/Length Dosing, 81.4, kg, 06/17/23 14:35:00 EDT, Weight Dosing Start Date: 06/24/23 Stop Date: 07/01/23 Status: Ordered pantoprazole 20 mg oral delayed release tablet 20 mg = 1 tab, Oral, Daily, # 21 tab, 0 Refill(s), Pharmacy: [facility] #58, 175, cm, 06/17/23 14:35:00 EDT, Height/Length Dosing, 81.4, kg, 06/17/23 14:35:00 EDT, Weight Dosing Start Date: 06/24/23 Stop Date: 07/15/23 Status: Ordered [facility] 1 cap, Oral, Daily, 0 Refill(s) Start Date: 06/16/23 Status: Ordered Problem List Condition Confirmation Course Effective Dates Status Health St atus Informant Adenocarcinoma, colon Confirmed Active Benign essential hypertension Confirmed 01/29/19 Active Benign prostatic hyperplasia Confirmed 05/22/17 Active Calcific tendinitis of shoulder Confirmed Active Dizziness and giddiness Confirmed Active Dyspnea Confirmed 05/22/17 Active Dysuria Confirmed 05/22/17 Active S/P right colectomy Confirmed Active Increased frequency of urination Confirmed 10/30/18 Active Raised prostate specific antigen Confirmed 10/22/21 Active Shoulder joint pain Confirmed Active Vitamin D deficiency Confirmed 05/22/17 Active Procedures Procedure Date Related Diagnosis Body Site Status Right colectomy 06/16/23 Completed Shoulder repair Completed Social History Social History Type Response Tobacco Former tobacco user Tobacco Use:. 1 Sex Male 1Pt quit 35 years ago Patient Care team information Care Team Personnel Name: Gregory Masterson Position: Physician Member Role: Primary Care Physician Address: Address: [address] [place] [phone] Care Team Related Persons Name: CALVIN SOLARES Name: JENNY SOLARES Name: PIYUSH SOLARES
--- OUTSIDE RECORDS SUMMARY | 2023-07-25 09:01 | XMS_ITS | Continuity of Care Document ---
Author Name Unknown Organization [facility] Address [address] [place] [address] Care Team Providers Care Coding Specialist Home Health Name Role Phone Gregory Masterson Primary Care Physician Encounter [facility] Date(s): 06/13/23 - 06/13/23 [facility] [address] [place] [address] Discharge Disposition: Home Allergies, Adverse Reactions, Alerts [...] surgery, # 6 tab, 0 Refill(s), Pharmacy: [facility] #58, 175, cm, 06/13/23 10:15:00 EDT, Height/Length [...] surgery, # 6 tab, 0 Refill(s), Pharmacy: [facility] #58, 175, cm, 06/13/23 10:15:00 EDT, Height/Length [...] Member Role: Primary Care Physician Address: Address: [address] [place] [phone] [place] Care Team Related Persons Name: PIYUSH SOLARES
--- OUTSIDE RECORDS SUMMARY | 2023-07-25 09:02 | XMS_ITS | Continuity of Care Document ---
Author Name Unknown Organization [facility] Address [address] [place] [address] Care Team Providers Care Terrestrial Ecologist Name Role Phone Gregory Masterson Primary Care Physician [phone] Encounter [facility] Date(s): 06/13/23 - 06/13/[address] [address] Encounter Diagnosis Colon tumor(Discharge Diagnosis) - 06/13/23 Ascites(Discharge Diagnosis) - 06/13/23 Discharge Disposition: Home or Self Care Attending Physician: Joyce Raymond MD Admitting Physician: Joyce Raymond MD Allergies, Adverse Reactions, Alerts No Known Medication Allergies Assessment and Plan Extracted from: Title:Clinical Document Author:Aide Blair te:06/13/23 Diagnosis: 1. Colon tumor Comment: Diagnosis: 2. Ascites Comment: Future Appointments Future Scheduled Tests Radiology* CT Brain/Head w/ Contrast 06/13/23 * CT Chest w/ Contrast 06/13/23 * CT Abdomen and Pelvis w/ Contrast 06/09/23 Functional Status 06/13/23 Recent Travel History No recent travel Other exposure to Infectious Disease Non e Immunizations Given and Recorded Vaccine Date Status Refusal Reason SARS-CoV-2 (COVID-19) mRNA-1273 vaccine 12/18/20 R ecorded SARS-CoV-2 (COVID-19) mRNA-1273 vaccine 11/17/20 R ecorded tetanus/diphth/pertuss (Tdap) adult/adol 11/17/12 Recorded tetanus-diphth toxoids (Td) adult/adol 03/03/99 Re corded Medications ciprofloxacin 500 mg oral tablet See Instructions, Take 2 tabs at 4 pm, 7pm and 11 pm the day before surgery, # 6 tab, 0 Refill(s), Pharmacy: [id number], 175, cm, 06/13/23 10:15:00 EDT, Height/Length [...] surgery, # 6 tab, 0 Refill(s), Pharmacy: [id number], 175, cm, 06/13/23 10:15:00 EDT, Height/Length Dosing, 84, kg, 06/13/23 10:15:00 EDT, Weight Dosing Start Date: 06/13/23 Status: Ordered Mental Status 06/13/23 Eye Opening Response Garett Spontaneous ly Best Verbal Response [place] Oriented Best Motor Response Garett Obeys comman ds [place] Coma Score 15 Problem List Condition Confirmation Course Effective Dates Status Health St atus Informant Benign essential hypertension Confirmed 01/29/19 Active Calcific tendinitis of shoulder Confirmed Active Dizziness and giddiness Confirmed Active Increased frequency of urination Confirmed 10/30/18 Active Raised prostate specific antigen Confirmed 10/22/21 Active Shoulder joint pain Confirmed Active Results Laboratory List Name Date Urinalysis with Micro if Indicated and C ulture if Indicated 06/13/23 CBC w/ Diff 06/13/23 Comprehensive Metabolic Panel (CMP) 06/13 Automated Diff 06/13/23 Most recent to oldest [Reference Range]: 1 WBC [5.0-10.0 x10^3/mcL] 5.7 x10^3/mcL (06/13/23 10:53 AM) RBC [4.6-6.0 x10^6/mcL] 5.0 x10^6/mcL (06/13/23 10:53 AM) Neutro Auto [40.0-75.0 %] 67.0 % (06/13/23 10:53 AM) Lymph Auto [20.0-50.0 %] 21.1 % (06/13/23 10:53 AM) Dimmit Auto [2.0-15.0 %] 9.0 % (06/13/23 10: AM) Basophil Auto [0.0-1.0 %] 0.5 % (06/13/23 10: AM) BUN [7-18 mg/dL] 15 mg/dL (06/13/23 10:53 AM) UA Color Yellow (06/13/23 12:45 PM) Glucose Level [74-106 mg/dL] 116 mg/dL *HI* (06/13/23: AM) Potassium Level [3.5-5.1 mmol/L] 3.8 mmo l/L (06/13/23: AM) MCV [80.0-96.0 fL] 87.5 fL (06/13/23: AM) UA Urobilinogen Normal (06/13/23 12:45 PM) UA Bili [Negative] Negative (06/13/23 12:45 PM) UA Ketones Negative (06/13/23 12:45 PM) AST [15-37 unit/L] 15 unit/L (06/13/23: AM) ALT [16-63 unit/L] 21 unit/L (06/13/23: AM) MCHC [31.0-35.0 g/dL] 35.2 g/dL *HI* (06/13/23: AM) Sodium Level [136-145 mmol/L] 140 mmol/L (06/13/23: AM) UA Leuk Est Negative (06/13/23 12:45 PM) UA Nitrite Negative (06/13/23 12:45 PM) UA Glucose [Negative] Negative (06/13/23 12:45 PM) Hct [41.0-51.0 %] 44.0 % (06/13/23: AM) Calcium Level [8.5-10.1 mg/dL] 9.3 mg/dL (06/13/23 10: AM) Albumin Level [3.4-5.0 g/dL] 3.6 g/dL (06/13/23 10:53 AM) Protein Total [6.4-8.2 g/dL] 7.3 g/dL (06/13/23 10:53 AM) UA Protein Negative (06/13/23 12:45 PM) MCH [26.0-32.0 pg] 30.8 pg (06/13/23 10:53 AM) Neutro Absolute 3.8 x10^3/mcL *NA* (06/13/23 10:53 AM) Bilirubin Total [0.2-1.0 mg/dL] 0.4 mg/d L (06/13/23 10:53 AM) Hgb [14.0-18.0 g/dL] 15.5 g/dL (06/13/23 10:53 AM) Alk Phos [46-146 unit/L] 126 unit/L (06/13/23 10:53 AM) UA Blood Negative (06/13/23 12:45 PM) UA Spec Grav <=1.005 *NA* (06/13/23 12:45 PM) Platelets [130-450 x10^3/mcL] 199 x10^3/ mcL (06/13/23 10:53 AM) CO2 [21-32 mmol/L] 27 mmol/L (06/13/23 10:53 AM) UA pH 5.5 *NA* (06/13/23 12:45 PM) eGFR Non-AA [>=60] 80 (06/13/23 10:53 AM) eGFR AA [>=60] 80 (06/13/23 10:53 AM) UA Appear Clear (06/13/23 12:45 PM) Chloride Level [98-107 mmol/L] 104 mmol/ L (06/13/23 10:53 AM) RDW-CV [11.5-14.5 %] 12.2 % (06/13/23 10:53 AM) Imm Gran Auto [0.0-0.9 %] 0.5 % (06/13/23 10:53 AM) Creatinine Level [0.70-1.30 mg/dL] 1.00 mg/dL (06/13/23 10:53 AM) Eos, Auto [1.0-6.0 %] 1.9 % (06/13/23 10:53 AM) Vital Signs Most recent to oldest [Reference Range]: 1 2 Temperature Temporal Artery [36-38 Deg C ] 36.1 Deg C (06/13/23 12:34 PM) 36.6 Deg C (06/13/23 10:07 AM) Temperature Temporal Artery (DegF) [97.3-100 Deg F] 96.98 Deg F *LOW* (06/13/23 12:34 PM) Peripheral Pulse Rate [60-100 bpm] 73 bp m (06/13/23 12:34 PM) 92 bpm (06/13/23 10:07 AM) Respiratory Rate [12-24 br/min] 16 br/mi n (06/13/23 12:34 PM) 18 br/min (06/13/23 10:07 AM) Blood Pressure [90-140/60-90 mmHg] 169/9 8mmHg *HI* (06/13/23 12:34 PM) 186/99mmHg *HI* (06/13/23 10:07 AM) Weight Dosing 84.00 kg (06/13/23 10:15 AM) Weight Estimated 84.00 kg (06/13/23 10:07 AM) Height/Length Dosing 175.000 cm (06/13/23 10:15 AM) Height/Length Estimated 175.000 cm (06/13/23 10:07 AM) Social History Social History Type Response Tobacco Former tobacco user Tobacco Use:. 1 Sex Male 1Pt quit 35 years ago Hospital Discharge Instructions Patient Education 06/13/2023 12:39:27 Colon Mass, Adult Colon Mass, Adult A colon mass is an abnormal growth in the colon, which is part of the large intestine. A mass can cause a blockage (obstruction) or bleeding in the colon. What are the causes? This condition may be caused by: ??? Cancer. ??? Blood vessel problems. ??? Infection. ??? Certain colon or bowel diseases. These include: ??? Inflammatory bowel disease, such as ulcerative colitis or Crohn's disease. ??? Diverticulitis. This is inflammation or infection of small pouches in the bowel. ??? Endometriosis. This is a condition in which the lining of the uterus grows outside of the uterus. ??? Scar tissue (adhesions) from a past surgery on the abdomen or from benign tumors such as a lipoma, teratoma, or hemangioma. ??? Volvulus. This is twisting of the intestine. What are the signs or symptoms? Symptoms of this condition include: ??? Cramping, nausea, diarrhea, or vomiting. ??? A fever or feeling weak. ??? Pain in the abdomen, side, or back. ??? Weight loss or loss of appetite. ??? Constipation or changes in bowel habits. ??? Bleeding from the rectum. ??? Feeling the need to have a bowel movement after having had one recently. In some cases, there are no symptoms of this condition. How is this diagnosed? This condition may be diagnosed based on tests and procedures that are done to learn more about themass. These may include: ??? Blood tests. ??? X-rays, ultrasound, a CT scan, or an MRI. ??? Colonoscopy. In this procedure, a flexible tube that has oil or gel on it (is lubricated) is inserted into the opening between the buttocks (anus) and then passed into the rectum and colon to examine the areas. ??? Biopsy. This is removal of a tissue sample from the mass to be looked at under a microscope. A biopsy may be taken during a colonoscopy. In some cases, what seems like a colon mass may actually be something else, such as scarring that formed after a surgery or an ulcer. How is this treated? Treatment for this condition depends on the cause of the mass. You and your health care provider will discuss the meaning of your test results and the recommended steps for starting treatment. If there are serious concerns, emergency surgery may be needed. Follow these instructions at home: What you need to do at home depends on the cause of the mass. Follow instructions from your health care provider. In general: ??? Take jbqb-gfp-hsjontj and prescription medicines only as told by your health care provider. ??? Keep all follow-up visits. This is important. Contact a health care provider if: ??? Your symptoms get worse. ??? You have new symptoms. ??? You have a fever. ??? Medicine does not help your pain. ??? You feel weaker. ??? You bruise or bleed easily. Get help right away if: ??? You vomit bright red blood or material that looks like coffee grounds. ??? You have blood in your stools (feces), or your stools look black and tarry. ??? You faint. ??? You feel that the mass has suddenly gotten larger. ??? You have severe swelling or pressure in your abdomen (bloating). Summary ??? A colon mass is an abnormal growth in the colon, which is part of the large intestine. There are many possible causes of a colon mass. ??? Treatment depends on the cause of the mass. If there are serious concerns, emergency surgery may be needed. ??? Take zshv-tfr-gxptlpq and prescription medicines only as told by your health care provider. This information is not intended to replace advice given to you by your health care provider. Make sure you discuss any questions you have with your health care provider. Document Revised: 02/07/2021 Document Reviewed: 02/07/2021 [employer] Patient Education ?? 2022 [employer]. Follow Up Care 06/13/2023 10:07:27 With:Simone Gutierres MD Address: [address] [address]- When:1 week Physician Emergency department Note * Renetta Moyer MD: MODIFY, PERFORM Event Display: ED Note Physician Authored Date: [id number] AMADO SOLARES :1950 Age:73 years Sex:Male Visit Date:06/13/2023 Primary Care Physician: Gregory Masterson Basic Information Time Seen: Renetta Moyer MD / 06/13/2023 10:13 Chief Complaint RLQ pain x 5 weeks worsening at night. Pt did see PCP but was told nothing. Pain described as sharp History Of Present Illness: 73M w/ h/o HTN presents to the ED c/o intermittent abd pain x 1 month. Pt saw PCP 06/06 - very complete and thoroughly??documented note with plan.??Had labs (wnl) and CT a/p scheduled on 06/27 and plan for colonoscopy. Pt hypertensive at that visit but not willing to startadditional antihypertensive. Pt reports today that he is not sure what his PCP told him. He spoke with his niece who is a surgeon and she told him to come to the ED for a sonogram for his gallbladder. Pt reports 5 weeks of intermittent RLQ pain that is worse at night. No n/v/c/d. Pt today denies dark stool or blood in stool, no change in usual consistency of stool. Pt feels pain is worse when his abd is full so he tends to eat less than usual but he otherwise has a good appetite. He was taking Tylenol with minimal improvement in pain but a few days ago he took Ibuprofen and his pain completely resolved. No f/c. No dysuria/hematuria/urgency or frequency. No CP or SOB. BP at triage 186/99. Pt w/ no RODRIGUEZ or visual changes. Physical Exam Vitals & Measurements T:??36.1?C ??(Temporal Artery)?? HR:??73??(Peripheral)?? RR:??16?? BP:??169/98?? SpO2:??96%?? HT:??175.000??cm?? WT:??84.00??kg??(Estimated)?? Pain Score:??2?? O2 Therapy:??Room air?? General: A&Ox3, Calm, no apparent distress, well developed, pleasant and cooperative ?? HEENT: Head ATNC. Eyes: ROSINA. Extraocular Mobility: intact and symmetrical. Conjunctiva: non-injected, anicteric, no discharge. Oral Cavity: moist. Neck: no masses, no crepitus. Lymph Nodes: no cervical lymphadenopathy? Respiratory: CTA bilaterally, no wheezing, no rales/crackles? CV: RRR, normal S1, normal S2, no murmurs, rubs or gallops ?? Abdomen : soft, slightly tender in the RLQ, non-distended, no rebound or guarding, no hepatosplenomegaly, No Hoyos's sign ?? Extremities: no le swelling, warm and well-perfused, no cyanosis, capillary refill <2 seconds? Skin: no rash, no lesions, no bruising? Neuro: normal tone, normal strength in all 4 extremities, sensation intact?? Medical Decision MakinM w/ h/o HTN presents to the ED c/o intermittent abd pain x 1 month. Pain intermittent in the RLQ, worse on laying down No associated n/v/c/d but some anorexia No urinary symptoms Pain completely relieved by ibuprofen ?? DDx includes msk pain, atypical appy or diverticulitis, K stone, pyelo, mass, cholelithiasis, cholecystitis ?? In light of pt's symptoms, I recommended a CT a/p. However, pt??really just wanted an??US of his gallbladder as he had spoken with his niece who is a surgeon in [place] and she had told him to go to the ED to get that done. We discussed this with radiology and they said they could do??it at 15:45. Upon discussing with the patient, he did not want to wait that long in the ED so he agreed to get a CT of the a/p. ?? 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 Liver lesions also noted, most likely cysts. ?? Discussed findings with pt. Dr Gutierres from surgery came down and evaluated him too. He will arrangefor an expedited colonoscopy and bx next week. I spoke with Gregory Masterson the pt's pcp, who will order a CT chest w/ contrast (cannot be done today as pt already had contrast) and a NCHCT as well. ?? Discharge instructions and return precautions discussed, all questions answered. ?? Procedure No Qualifying Data Assessment/Plan 1.??Colon tumor??D49.0 2.??Ascites??R18.8 Cervical mass??N88.8 Patient Education Colon Mass, Adult Follow Up With When Contact Information Simone Gutierres MD Within [address] [address]- Additional Instructions: Medication Reconciliation Unchanged losartan (losartan 100 mg oral tablet)1 tab Oral (given by mouth) every day. Problem List/Past Medical History Ongoing Benign essential hypertension Calcific tendinitis of shoulder Dizziness and giddiness Increased frequency of urination Raised prostate specific antigen Shoulder joint pain Historical General symptom Headache Hypertensive disorder Allergies No Known Medication Allergies Social History Electronic Cigarette/Vaping Electronic Cigarette Use: Never. Tobacco Former tobacco user Tobacco Use:.- Comments: Pt quit 35 years ago Lab Results CBC and Differential?? LATEST RESULTS?? HISTORICAL RESULTS?? WBC?? 06/13/23 10:53?? 5.7?? 06/06/23?? 6.7?? RBC?? 06/13/23 10:53?? 5.0?? 06/06/23?? 4.8?? Hgb?? 06/13/23 10:53?? 15.5?? 06/06/23?? 14.6?? Hct?? 06/13/23 10:53?? 44.0?? 06/06/23?? 42.9?? MCV?? 06/13/23 10:53?? 87.5?? 06/06/23?? 89.4?? MCH?? 06/13/23 10:53?? 30.8?? 06/06/23?? 30.4?? MCHC?? 06/13/23 10:53?? 35.2 ??High?? 06/06/23?? 34.0?? RDW-CV?? 06/13/23 10:53?? 12.2?? 06/06/23?? 12.3?? Platelets?? 06/13/23 10:53?? 199?? 06/06/23?? 212?? Neutro Auto?? 06/13/23 10:53?? 67.0?? 06/06/23?? 65.3?? Lymph Auto?? 06/13/23 10:53?? 21.1?? 06/06/23?? 21.2?? Dimmit Auto?? 06/13/23 10:53?? 9.0?? 06/06/23?? 10.1?? Eos, Auto?? 06/13/23 10:53?? 1.9?? 06/06/23?? 2.7?? Basophil Auto?? 06/13/23 10:53?? 0.5?? 06/06/23?? 0.6?? Imm Gran Auto?? 06/13/23 10:53?? 0.5?? 06/06/23?? 0.1?? Neutro Absolute?? 06/13/23 10:53?? 3.8?? 06/06/23?? 4.4? Routine Chemistry?? LATEST RESULTS?? HISTORICAL RESULTS?? Sodium Level?? 06/13/23 10:53?? 140?? 06/06/23?? 140?? Potassium Level?? 06/13/23 10:53?? 3.8?? 06/06/23?? 4.0?? Chloride Level?? 06/13/23 10:53?? 104?? 06/06/23?? 106?? CO2?? 06/13/23 10:53?? 27?? 06/06/23?? 28?? Alk Phos?? 06/13/23 10:53?? 126?? 06/06/23?? 122?? AST?? 06/13/23 10:53?? 15?? 06/06/23?? 11 ??Low?? ALT?? 06/13/23 10:53?? 21?? 06/06/23?? 14 ??Low?? BUN?? 06/13/23 10:53?? 15?? 06/06/23?? 11?? Glucose Level?? 06/13/23 10:53?? 116 ??High?? 06/06/23?? 96?? Creatinine Level?? 06/13/23 10:53?? 1.00?? 06/06/23?? 1.03?? eGFR AA?? 06/13/23 10:53?? 80?? 06/06/23?? 77?? eGFR Non-AA?? 06/13/23 10:53?? 80?? 06/06/23?? 77?? Calcium Level?? 06/13/23 10:53?? 9.3?? 06/06/23?? 8.7?? Protein Total?? 06/13/23 10:53?? 7.3?? 06/06/23?? 6.9?? Albumin Level?? 06/13/23 10:53?? 3.6?? 06/06/23?? 3.4?? Bilirubin Total?? 06/13/23 10:53?? 0.4?? 06/06/23?? 0.3? UA Macroscopic?? LATEST RESULTS?? UA Color?? 06/13/23 12:45?? Yellow?? UA Appear?? 06/13/23 12:45?? Clear?? UA Glucose?? 06/13/23 12:45?? Negative?? UA Bili?? 06/13/23 12:45?? Negative?? UA Ketones?? 06/13/23 12:45?? Negative?? UA Spec Grav?? 06/13/23 12:45?? <=1.005?? UA Blood?? 06/13/23 12:45?? Negative?? UA pH?? 06/13/23 12:45?? 5.5?? UA Protein?? 06/13/23 12:45?? Negative?? UA Urobilinogen?? 06/13/23 12:45?? Normal?? UA Nitrite?? 06/13/23 12:45?? Negative?? UA Leuk Est?? 06/13/23 12:45?? Negative? Electronically Signed on 06/13/23 01:50 PM Renetta Moyer MD Electronically Signed on 06/13/23 01:57 PM Renetta Moyer MD Emergency department Discharge instructions * Renetta Moyer MD: MODIFY, PERFORM Event Display: ED Discharge Information Authored Date: [id number] AMADO SOLARES :1950 Age:73 years Sex:Male Visit Date:06/13/2023 Primary Care Physician: Gregory Masterson PA Discharge Instructions We would like to thank you for allowing us to assist you with your healthcare needs. The following includes patient education materials and information regarding your injury/illness. Diagnosis from Today's Visit Colon tumor Ascites Discharge Vitals Temperature??(Temporal Artery) 97.0 ??F (36.1 ??C) Heart Rate??(Peripheral) 73 Respiratory Rate?? 16 Blood Pressure?? 169/98?? Height?? 68.90 in (175.000 cm) Weight??(Estimated) 185.22 lb (84.00 kg) Allergies No Known Medication Allergies What to Do Next Instructions from Your Care Team Please??follow all instructions given by Dr. Gutierres from surgery. You will need a colonoscopy next week. Your primary care doctor will also schedule you for additional CTs. Please return to the ED for any new or worsening symptoms. You Need to Schedule the Following Appointments Follow Up with??Simone Gutierres MD When:??Within 1 week Where: [address] [address]- Upcoming Scheduled Appointments Friday 9:00 AM EDT ?? 2022 8:45 AM EDT ?? Friday 10:20 AM EDT ?? You were treated today on an emergency basis; it may be price to contact your primary care provider to notify them of your visit today. You may have been referred to your regular doctor or a specialist, please follow up as instructed. If your condition worsens or you can't get in to see the doctor, contact the Emergency Department. Medications What How Much When Instructions Next Dose Unchanged losartan (losartan 100 mg oral tablet) 1 tab Oral (given by mouth) Every day Education Materials Colon Mass, Adult A colon mass is an abnormal growth in the colon, which is part of the large intestine. A mass can cause a blockage (obstruction) or bleeding in the colon. What are the causes? This condition may be caused by: ? Cancer. ? Blood vessel problems. ? Infection. ? Certain colon or bowel diseases. These include: ? Inflammatory bowel disease, such as ulcerative colitis or Crohn's disease. ? Diverticulitis. This is inflammation or infection of small pouches in the bowel. ? Endometriosis. This is a condition in which the lining of the uterus grows outside of the uterus. ? Scar tissue (adhesions) from a past surgery on the abdomen or from benign tumors such as a lipoma, teratoma, or hemangioma. ? Volvulus. This is twisting of the intestine. What are the signs or symptoms? Symptoms of this condition include: ? Cramping, nausea, diarrhea, or vomiting. ? A fever or feeling weak. ? Pain in the abdomen, side, or back. ? Weight loss or loss of appetite. ? Constipation or changes in bowel habits. ? Bleeding from the rectum. ? Feeling the need to have a bowel movement after having had one recently. In some cases, there are no symptoms of this condition. How is this diagnosed? This condition may be diagnosed based on tests and procedures that are done to learn more about themass. These may include: ? Blood tests. ? X-rays, ultrasound, a CT scan, or an MRI. ? Colonoscopy. In this procedure, a flexible tube that has oil or gel on it (is lubricated) is inserted into the opening between the buttocks (anus) and then passed into the rectum and colon to examinethe areas. ? Biopsy. This is removal of a tissue sample from the mass to be looked at under a microscope. A biopsy may be taken during a colonoscopy. In some cases, what seems like a colon mass may actually be something else, such as scarring that formed after a surgery or an ulcer. How is this treated? Treatment for this condition depends on the cause of the mass. You and your health care provider will discuss the meaning of your test results and the recommended steps for starting treatment. If there are serious concerns, emergency surgery may be needed. Follow these instructions at home: What you need to do at home depends on the cause of the mass. Follow instructions from your health care provider. In general: ? Take zjkq-kgo-ffgwsux and prescription medicines only as told by your health care provider. ? Keep all follow-up visits. This is important. Contact a health care provider if: ? Your symptoms get worse. ? You have new symptoms. ? You have a fever. ? Medicine does not help your pain. ? You feel weaker. ? You bruise or bleed easily. Get help right away if: ? You vomit bright red blood or material that looks like coffee grounds. ? You have blood in your stools (feces), or your stools look black and tarry. ? You faint. ? You feel that the mass has suddenly gotten larger. ? You have severe swelling or pressure in your abdomen (bloating). Summary ? A colon mass is an abnormal growth in the colon, which is part of the large intestine. There are many possible causes of a colon mass. ? Treatment depends on the cause of the mass. If there are serious concerns, emergency surgery may beneeded. ? Take bkpg-xbf-wmgzttf and prescription medicines only as told by your health care provider. This information is not intended to replace advice given to you by your health care provider. Make sure you discuss any questions you have with your health care provider. Document Revised: 02/07/2021 Document Reviewed: 02/07/2021 Elsevier Patient Education ?? 2022 [employer] Tests Performed Lab Test Name Test Result Date/Time WBC 5.7 x10^3/mcL 06/13/2023 10:53 EDT RBC 5.0 x10^6/mcL 06/13/2023 10:53 EDT Hgb 15.5 g/dL 06/13/2023 10:53 EDT Hct 44.0 % 06/13/2023 10:53 EDT MCV 87.5 fL 06/13/2023 10:53 EDT MCH 30.8 pg 06/13/2023 10:53 EDT MCHC 35.2 g/dL 06/13/2023 10:53 EDT RDW-CV 12.2 % 06/13/2023 10:53 EDT Platelets 199 x10^3/mcL 06/13/2023 10:53 EDT Neutro Auto 67.0 % 06/13/2023 10:53 EDT Lymph Auto 21.1 % 06/13/2023 10:53 EDT Dimmit Auto 9.0 % 06/13/2023 10:53 EDT Eos, Auto 1.9 % 06/13/2023 10:53 EDT Basophil Auto 0.5 % 06/13/2023 10:53 EDT Imm Gran Auto 0.5 % 06/13/2023 10:53 EDT Neutro Absolute 3.8 x10^3/mcL 06/13/2023 10:53 EDT Sodium Level 140 mmol/L 06/13/2023 10:53 EDT Potassium Level 3.8 mmol/L 06/13/2023 10:53 EDT Chloride Level 104 mmol/L 06/13/2023 10:53 EDT CO2 27 mmol/L 06/13/2023 10:53 EDT Alk Phos 126 unit/L 06/13/2023 10:53 EDT AST 15 unit/L 06/13/2023 10:53 EDT ALT 21 unit/L 06/13/2023 10:53 EDT BUN 15 mg/dL 06/13/2023 10:53 EDT Glucose Level 116 mg/dL 06/13/2023 10:53 EDT Creatinine Level 1.00 mg/dL 06/13/2023 10:53 EDT eGFR AA 80 06/13/2023 10:53 EDT eGFR Non-AA 80 06/13/2023 10:53 EDT Calcium Level 9.3 mg/dL 06/13/2023 10:53 EDT Protein Total 7.3 g/dL 06/13/2023 10:53 EDT Albumin Level 3.6 g/dL 06/13/2023 10:53 EDT Bilirubin Total 0.4 mg/dL 06/13/2023 10:53 EDT UA Color YELLOW. 06/13/2023 12:45 EDT UA Appear CLEAR. 06/13/2023 12:45 EDT UA Glucose NEGATIVE 06/13/2023 12:45 EDT UA Bili NEGATIVE 06/13/2023 12:45 EDT UA Ketones NEGATIVE 06/13/2023 12:45 EDT UA Spec Grav <=1.005 06/13/2023 12:45 EDT UA Blood NEGATIVE 06/13/2023 12:45 EDT UA pH 5.5 06/13/2023 12:45 EDT UA Protein NEGATIVE 06/13/2023 12:45 EDT UA Urobilinogen 0.2 Uro 06/13/2023 12:45 EDT UA Nitrite NEGATIVE 06/13/2023 12:45 EDT UA Leuk Est NEGATIVE 06/13/2023 12:45 EDT Patient/Orthopedically Impaired Teacher Signature Patient Name:AMADO SOLARES I have received this information and my questions have been answered. Patient/Orthopedically Impaired Teacher Name: Patient/Orthopedically Impaired Teacher Signature: Relationship to Patient: Witness Name/Signature: Date: Electronically Signed on: 06/13/2023 13:50 EDTSigned by:GMB Discharge summary * Aide Blair: PERFORM Event Display: Discharge Note Authored Date: * Aide Blair: PERFORM Event Display: Discharge Note Authored Date: Diagnosis: 1. Colon tumor Comment: Diagnosis: 2. Ascites Comment: Electronically Signed on 06/13/23 01:58 PM Aide Blair Patient Care team information Care Team Personnel Name: Gregory Masterson Position: Physician Member Role: Primary Care Physician Address: Address: [address] [place] [address] Name: Renetta Moyer MD Position: Physician Member Role: ED Physician Address: Address: [address], [place] [address] Name: Salome Freeman Position: Nurse Member Role: ED Nurse Care Team Related Persons Name: PIYUSH SOLARES
[2023-07-25] MEDS: Normal Saline Flush 10 ML SYR IVP (10:44)
[2023-07-25 10:52] LABS: Abs Immature Grans 0.01 10^3/uL (0.0-0.06); Absolute Basophil Count 0.04 10^3/uL (0.0-0.2); Absolute Eosinophil Count 0.17 10^3/uL (0.0-0.7); Absolute Lymphocyte Count 1.35 10^3/uL (1.2-3.4); Absolute Monocyte Count 0.62 10^3/uL (0.1-0.8); Basophils % 0.7; Eosinophils % 2.8; HCT 42.5 % (40.0-50.0); HGB 15.1 g/dL (13.5-17.5); Immature Grans % 0.2; Lymphocytes % 22.5; MCH 30.8 pg (27.0-33.0); MCHC 35.5 % (32.0-36.0); MCV 87 fL (80-95); MPV 11.6 fL (8.0-11.0); Monocytes % 10.4; Neutrophils % 63.4; Platelet Count 164 10^3/uL (130-400); RBC 4.91 10^6/uL (4.36-5.78); RDW 13.3 % (11.8-14.1); RDW-SD 41.6 fL; WBC 5.99 10^3/uL (4.4-10.8)
[2023-07-25 11:14] LABS: ALT 10 U/L (16-63); AST 12 U/L (15-37); Albumin 3.7 g/dL (3.4-5.0); Alkaline Phosphatase 134 U/L (46-116); BUN 13 mg/dL (7-18); Bilirubin, Total 0.5 mg/dL (0.2-1.0); Calcium 9.2 mg/dL (8.5-10.1); Chloride 105 mmol/L (98-107); Estimated GFR 79.97 (mL/min/1.73m2); Glucose 107 mg/dL (74-106); Potassium 3.5 mmol/L (3.5-5.1); Sodium 141 mmol/L (136-145); Total Protein 7.4 g/dL (6.4-8.2)
[2023-07-25 19:23] LABS: CEA 10.9 ng/mL (See Note)
[2023-07-27 13:01] VITALS: BP 151/76; PULSE 71; RESP 16; TEMP 36.4; O2SAT 96
== END 2023-08-02 23:59 | disposition home or self-care (01) ==
LOC: INF 01:46
PROVIDERS: Visit Provider Internal Medicine Hematology & Oncology
DX: C18.9 Malignant neoplasm of colon, unspecified (principal); Z45.2 Encounter for adjustment and management of vascular access device
CPT/HCPCS: 36591; 80053; 96523; 82378; 85025

== ENCOUNTER 2023-08-24 00:03 | Outpatient (RCR) | payer MEDICARE, SELFPAY ==
[2023-08-03 00:19] VITALS: BP 151/76; PULSE 71; RESP 16; TEMP 36.4
[2023-08-10] MEDS: Heparin 500 UNITS/5 ML SYRINGE IV (09:20)
[2023-08-10] MEDS: Normal Saline Flush 10 ML SYR IVP (09:20)
[2023-08-10 11:58] VITALS: BP 147/77; PULSE 71; RESP 16; TEMP 36.3; O2SAT 95
[2023-08-22] MEDS: Normal Saline Flush 10 ML SYR IVP (10:08)
[2023-08-22 10:59] LABS: Abs Immature Grans 0.02 10^3/uL (0.0-0.06); Absolute Basophil Count 0.03 10^3/uL (0.0-0.2); Absolute Eosinophil Count 0.14 10^3/uL (0.0-0.7); Absolute Lymphocyte Count 1.18 10^3/uL (1.2-3.4); Absolute Neutrophil Count 3.62 10^3/uL (1.2-6.7); Basophils % 0.5; Eosinophils % 2.5; HCT 42.4 % (40.0-50.0); Immature Grans % 0.4; Lymphocytes % 21.1; MCH 30.8 pg (27.0-33.0); MCHC 35.4 % (32.0-36.0); MCV 87 fL (80-95); MPV 11.1 fL (8.0-11.0); Monocytes % 10.7; Neutrophils % 64.8; Platelet Count 153 10^3/uL (130-400); RBC 4.87 10^6/uL (4.36-5.78); RDW 14.5 % (11.8-14.1); RDW-SD 45.1 fL; WBC 5.59 10^3/uL (4.4-10.8)
[2023-08-22 11:18] LABS: ALT 21 U/L (16-63); AST 17 U/L (15-37); Albumin 3.6 g/dL (3.4-5.0); Alkaline Phosphatase 105 U/L (46-116); Anion Gap 9.6 mmol/L (3-11); BUN 23 mg/dL (7-18); Bilirubin, Total 0.5 mg/dL (0.2-1.0); CO2 26.4 mmol/L (21.0-32.0); Calcium 9.8 mg/dL (8.5-10.1); Chloride 110 mmol/L (98-107); Estimated GFR 79.97 (mL/min/1.73m2); Glucose 99 mg/dL (74-106); Potassium 3.8 mmol/L (3.5-5.1); Sodium 146 mmol/L (136-145); Total Protein 7.4 g/dL (6.4-8.2)
[2023-08-22 19:35] LABS: CEA 5.3 ng/mL (See Note)
[2023-08-24 13:14] VITALS: BP 166/89; PULSE 61; RESP 16; TEMP 36.4; O2SAT 97
[2023-08-24] MEDS: Normal Saline Flush 10 ML SYR IVP (13:18)
[2023-08-24] MEDS: Heparin 500 UNITS/5 ML SYRINGE IV (13:19)
== END 2023-09-02 23:59 | disposition home or self-care (01) ==
LOC: INF 00:03
PROVIDERS: PCP Physician Assistant Medical; Visit Provider Internal Medicine Hematology & Oncology
DX: C18.9 Malignant neoplasm of colon, unspecified (principal); Z45.2 Encounter for adjustment and management of vascular access device
CPT/HCPCS: 36591; 80053; 96523; 82378; 85025

== ENCOUNTER 2023-09-19 08:30 | Outpatient (RCR) | payer MEDICARE, SELFPAY ==
[2023-09-03 00:10] VITALS: BP 151/76; PULSE 71; RESP 16; TEMP 36.4
[2023-09-05] MEDS: Normal Saline Flush 10 ML SYR IVP (10:04)
[2023-09-05 10:45] LABS: Bilirubin Negative (Negative); Blood Negative (Negative); Clarity Clear (Clear); Glucose Negative (Negative); Ketones 40 mg/dL (Negative); Leukocyte Esterase Negative (Negative); Nitrite Negative (Negative); Specific Gravity >= 1.030 (1.005-1.025); Urobilinogen 0.2 mg/dL (Up to 0.2)
[2023-09-05 10:49] LABS: Abs Immature Grans 0.01 10^3/uL (0.0-0.06); Absolute Basophil Count 0.03 10^3/uL (0.0-0.2); Absolute Eosinophil Count 0.12 10^3/uL (0.0-0.7); Absolute Lymphocyte Count 1.23 10^3/uL (1.2-3.4); Absolute Monocyte Count 0.67 10^3/uL (0.1-0.8); Basophils % 0.6; Eosinophils % 2.4; HCT 39.8 % (40.0-50.0); HGB 14.1 g/dL (13.5-17.5); Immature Grans % 0.2; Lymphocytes % 24.3; MCH 31.1 pg (27.0-33.0); MCHC 35.4 % (32.0-36.0); MCV 88 fL (80-95); MPV 11.2 fL (8.0-11.0); Monocytes % 13.2; Neutrophils % 59.3; Platelet Count 132 10^3/uL (130-400); RBC 4.54 10^6/uL (4.36-5.78); RDW 14.8 % (11.8-14.1); RDW-SD 46.5 fL; WBC 5.06 10^3/uL (4.4-10.8)
[2023-09-05 10:57] LABS: ALT 21 U/L (16-63); AST 21 U/L (15-37); Albumin 3.6 g/dL (3.4-5.0); Alkaline Phosphatase 101 U/L (46-116); BUN 24 mg/dL (7-18); Bilirubin, Total 0.5 mg/dL (0.2-1.0); Calcium 9.5 mg/dL (8.5-10.1); Chloride 107 mmol/L (98-107); Estimated GFR 79.97 (mL/min/1.73m2); Glucose 102 mg/dL (74-106); Potassium 3.6 mmol/L (3.5-5.1); Sodium 141 mmol/L (136-145); Total Protein 7.3 g/dL (6.4-8.2)
[2023-09-05 18:43] LABS: CEA 4.7 ng/mL (See Note)
[2023-09-07] MEDS: Normal Saline Flush 10 ML SYR IVP ×2 (06:53→13:15)
[2023-09-07] MEDS: Heparin 500 UNITS/5 ML SYRINGE IV ×2 (06:54→13:15)
[2023-09-19] MEDS: Normal Saline Flush 10 ML SYR IVP (08:37)
[2023-09-19 09:07] LABS: Abs Immature Grans 0.01 10^3/uL (0.0-0.06); Absolute Basophil Count 0.02 10^3/uL (0.0-0.2); Absolute Eosinophil Count 0.13 10^3/uL (0.0-0.7); Absolute Lymphocyte Count 1.31 10^3/uL (1.2-3.4); Absolute Neutrophil Count 3.03 10^3/uL (1.2-6.7); Basophils % 0.4; Eosinophils % 2.5; HGB 14.4 g/dL (13.5-17.5); Immature Grans % 0.2; Lymphocytes % 25.7; MCH 31.4 pg (27.0-33.0); MCV 87 fL (80-95); MPV 10.6 fL (8.0-11.0); Monocytes % 11.8; Neutrophils % 59.4; Platelet Count 115 10^3/uL (130-400); RBC 4.59 10^6/uL (4.36-5.78); RDW 15.3 % (11.8-14.1); RDW-SD 48.3 fL
[2023-09-19 09:27] LABS: ALT 27 U/L (16-63); AST 22 U/L (15-37); Albumin 3.6 g/dL (3.4-5.0); Alkaline Phosphatase 99 U/L (46-116); BUN 22 mg/dL (7-18); Bilirubin, Total 0.6 mg/dL (0.2-1.0); Calcium 9.6 mg/dL (8.5-10.1); Chloride 107 mmol/L (98-107); Estimated GFR 79.97 (mL/min/1.73m2); Glucose 108 mg/dL (74-106); Potassium 3.6 mmol/L (3.5-5.1); Sodium 143 mmol/L (136-145); Total Protein 7.3 g/dL (6.4-8.2)
[2023-09-19 19:40] LABS: CEA 4.1 ng/mL (See Note)
== END 2023-10-02 23:59 | disposition home or self-care (01) ==
LOC: INF 08:30
PROVIDERS: PCP Physician Assistant Medical; Visit Provider Internal Medicine Hematology & Oncology
DX: C18.9 Malignant neoplasm of colon, unspecified (principal); Z79.899 Other long term (current) drug therapy; Z45.2 Encounter for adjustment and management of vascular access device
CPT/HCPCS: 36591; 80053; 96523; 81003; 82378; 85025

== ENCOUNTER 2023-09-21 01:50 | Outpatient (RCR) | payer MEDICARE, SELFPAY ==
[2023-09-21 11:05] VITALS: BP 146/94; PULSE 64; RESP 16; TEMP 36.4; O2SAT 98
[2023-09-21] MEDS: Heparin 500 UNITS/5 ML SYRINGE IV (11:07)
[2023-09-21] MEDS: Normal Saline Flush 10 ML SYR IVP (11:07)
== END 2023-10-02 23:59 | disposition home or self-care (01) ==
LOC: INF 01:50
PROVIDERS: PCP Physician Assistant Medical; Visit Provider Internal Medicine Hematology & Oncology
DX: C18.9 Malignant neoplasm of colon, unspecified (principal); Z79.899 Other long term (current) drug therapy
CPT/HCPCS: 96523

== ENCOUNTER 2023-11-02 02:29 | Outpatient (RCR) | payer MEDICARE, SELFPAY ==
[2023-10-03 00:20] VITALS: BP 151/76; PULSE 71; RESP 16; TEMP 36.4
[2023-10-03] MEDS: Normal Saline Flush 10 ML SYR IVP (10:51)
[2023-10-03 11:18] LABS: Abs Immature Grans 0.01 10^3/uL (0.0-0.06); Absolute Basophil Count 0.02 10^3/uL (0.0-0.2); Absolute Eosinophil Count 0.08 10^3/uL (0.0-0.7); Absolute Lymphocyte Count 1.17 10^3/uL (1.2-3.4); Absolute Monocyte Count 0.66 10^3/uL (0.1-0.8); Absolute Neutrophil Count 2.83 10^3/uL (1.2-6.7); Basophils % 0.4; Eosinophils % 1.7; HCT 40.7 % (40.0-50.0); HGB 14.5 g/dL (13.5-17.5); Immature Grans % 0.2; Lymphocytes % 24.5; MCH 31.7 pg (27.0-33.0); MCHC 35.6 % (32.0-36.0); MCV 89 fL (80-95); MPV 11.2 fL (8.0-11.0); Monocytes % 13.8; Neutrophils % 59.4; Platelet Count 142 10^3/uL (130-400); RBC 4.58 10^6/uL (4.36-5.78); RDW 15.8 % (11.8-14.1); WBC 4.77 10^3/uL (4.4-10.8)
[2023-10-03 11:50] LABS: ALT 24 U/L (16-63); AST 19 U/L (15-37); Albumin 3.6 g/dL (3.4-5.0); Alkaline Phosphatase 103 U/L (46-116); Anion Gap 10.4 mmol/L (3-11); BUN 22 mg/dL (7-18); Bilirubin, Total 0.6 mg/dL (0.2-1.0); CO2 25.6 mmol/L (21.0-32.0); Calcium 9.3 mg/dL (8.5-10.1); Chloride 110 mmol/L (98-107); Estimated GFR 79.97 (mL/min/1.73m2); Glucose 103 mg/dL (74-106); Potassium 3.7 mmol/L (3.5-5.1); Sodium 146 mmol/L (136-145); Total Protein 7.3 g/dL (6.4-8.2)
[2023-10-03 21:14] LABS: CEA 4.7 ng/mL (See Note)
[2023-10-05 14:05] VITALS: BP 164/90; PULSE 64; RESP 16; TEMP 36.2; O2SAT 99
[2023-10-05] MEDS: Normal Saline Flush 10 ML SYR IVP (14:30)
[2023-10-05] MEDS: Heparin 500 UNITS/5 ML SYRINGE IV (14:31)
[2023-10-17] MEDS: Normal Saline Flush 10 ML SYR IVP (10:20)
[2023-10-17 10:25] LABS: Abs Immature Grans 0.01 10^3/uL (0.0-0.06); Absolute Basophil Count 0.02 10^3/uL (0.0-0.2); Absolute Eosinophil Count 0.06 10^3/uL (0.0-0.7); Absolute Lymphocyte Count 1.16 10^3/uL (1.2-3.4); Absolute Monocyte Count 0.59 10^3/uL (0.1-0.8); Absolute Neutrophil Count 2.49 10^3/uL (1.2-6.7); Basophils % 0.5; Eosinophils % 1.4; HGB 14.5 g/dL (13.5-17.5); Immature Grans % 0.2; Lymphocytes % 26.8; MCH 32.7 pg (27.0-33.0); MCHC 36.3 % (32.0-36.0); MCV 90 fL (80-95); MPV 11.4 fL (8.0-11.0); Monocytes % 13.6; Neutrophils % 57.5; Platelet Count 120 10^3/uL (130-400); RBC 4.44 10^6/uL (4.36-5.78); RDW 15.4 % (11.8-14.1); RDW-SD 50.2 fL; WBC 4.33 10^3/uL (4.4-10.8)
[2023-10-17 11:46] LABS: ALT 26 U/L (16-63); AST 23 U/L (15-37); Albumin 3.6 g/dL (3.4-5.0); Alkaline Phosphatase 102 U/L (46-116); Anion Gap 9.5 mmol/L (3-11); BUN 15 mg/dL (7-18); Bilirubin, Total 0.7 mg/dL (0.2-1.0); CO2 26.5 mmol/L (21.0-32.0); CREATININE 1.1 mg/dL (0.70-1.30); Calcium 9.1 mg/dL (8.5-10.1); Chloride 106 mmol/L (98-107); Estimated GFR 71.32 (mL/min/1.73m2); Glucose 105 mg/dL (74-106); Sodium 142 mmol/L (136-145); Total Protein 7.1 g/dL (6.4-8.2)
[2023-10-17 21:09] LABS: CEA 4.9 ng/mL (See Note)
[2023-10-19 14:07] VITALS: BP 153/84; PULSE 64; RESP 16; TEMP 36.3; O2SAT 97
[2023-10-19] MEDS: Heparin 500 UNITS/5 ML SYRINGE IV (14:09)
[2023-10-19] MEDS: Normal Saline Flush 10 ML SYR IVP (14:09)
[2023-10-31] MEDS: Normal Saline Flush 10 ML SYR IVP (08:00)
[2023-10-31 11:06] LABS: Abs Immature Grans 0.01 10^3/uL (0.0-0.06); Absolute Basophil Count 0.02 10^3/uL (0.0-0.2); Absolute Eosinophil Count 0.08 10^3/uL (0.0-0.7); Absolute Lymphocyte Count 1.26 10^3/uL (1.2-3.4); Absolute Monocyte Count 0.72 10^3/uL (0.1-0.8); Absolute Neutrophil Count 3.15 10^3/uL (1.2-6.7); Basophils % 0.4; Eosinophils % 1.5; HCT 38.6 % (40.0-50.0); HGB 13.7 g/dL (13.5-17.5); Immature Grans % 0.2; MCH 32.6 pg (27.0-33.0); MCHC 35.5 % (32.0-36.0); MCV 92 fL (80-95); MPV 11.3 fL (8.0-11.0); Monocytes % 13.7; Neutrophils % 60.2; Platelet Count 110 10^3/uL (130-400); RDW-SD 49.7 fL; WBC 5.24 10^3/uL (4.4-10.8)
[2023-10-31 11:18] LABS: ALT 20 U/L (16-63); AST 20 U/L (15-37); Albumin 3.4 g/dL (3.4-5.0); Alkaline Phosphatase 92 U/L (46-116); Anion Gap 6.7 mmol/L (3-11); BUN 22 mg/dL (7-18); Bilirubin, Total 0.7 mg/dL (0.2-1.0); CO2 26.3 mmol/L (21.0-32.0); Calcium 9.4 mg/dL (8.5-10.1); Chloride 109 mmol/L (98-107); Estimated GFR 79.97 (mL/min/1.73m2); Glucose 107 mg/dL (74-106); Potassium 3.8 mmol/L (3.5-5.1); Sodium 142 mmol/L (136-145)
[2023-11-01 12:59] LABS: CEA 5.3 ng/mL (See Note)
[2023-11-02] MEDS: Heparin 500 UNITS/5 ML SYRINGE IV (13:00)
[2023-11-02] MEDS: Normal Saline Flush 10 ML SYR IVP (13:00)
[2023-11-02 13:08] VITALS: BP 156/83; PULSE 62; RESP 16; TEMP 36.5; O2SAT 99
== END 2023-11-02 23:59 | disposition home or self-care (01) ==
LOC: INF 02:29
PROVIDERS: PCP Physician Assistant Medical; Visit Provider Internal Medicine Hematology & Oncology
DX: C18.9 Malignant neoplasm of colon, unspecified (principal); Z79.899 Other long term (current) drug therapy; Z45.2 Encounter for adjustment and management of vascular access device
CPT/HCPCS: 36591; 80053; 96523; 82378; 85025

== ENCOUNTER 2023-11-28 01:06 | Outpatient (RCR) | payer MEDICARE, SELFPAY ==
[2023-11-03 00:08] VITALS: BP 151/76; PULSE 71; RESP 16; TEMP 36.4
[2023-11-14 09:28] LABS: Abs Immature Grans 0.01 10^3/uL (0.0-0.06); Absolute Basophil Count 0.02 10^3/uL (0.0-0.2); Absolute Lymphocyte Count 1.26 10^3/uL (1.2-3.4); Absolute Monocyte Count 0.56 10^3/uL (0.1-0.8); Absolute Neutrophil Count 2.58 10^3/uL (1.2-6.7); Basophils % 0.4; Eosinophils % 2.2; HCT 41.5 % (40.0-50.0); HGB 14.8 g/dL (13.5-17.5); Immature Grans % 0.2; Lymphocytes % 27.8; MCHC 35.7 % (32.0-36.0); MCV 92 fL (80-95); MPV 11.2 fL (8.0-11.0); Monocytes % 12.4; Platelet Count 115 10^3/uL (130-400); RBC 4.49 10^6/uL (4.36-5.78); RDW 14.9 % (11.8-14.1); RDW-SD 50.4 fL; WBC 4.53 10^3/uL (4.4-10.8)
[2023-11-14 09:44] LABS: ALT 18 U/L (16-63); AST 24 U/L (15-37); Albumin 3.6 g/dL (3.4-5.0); Alkaline Phosphatase 106 U/L (46-116); Anion Gap 10.1 mmol/L (3-11); BUN 16 mg/dL (7-18); Bilirubin, Total 0.7 mg/dL (0.2-1.0); CO2 24.9 mmol/L (21.0-32.0); CREATININE 1.1 mg/dL (0.70-1.30); Calcium 9.4 mg/dL (8.5-10.1); Chloride 110 mmol/L (98-107); Estimated GFR 71.32 (mL/min/1.73m2); Glucose 124 mg/dL (74-106); Potassium 3.5 mmol/L (3.5-5.1); Sodium 145 mmol/L (136-145); Total Protein 7.2 g/dL (6.4-8.2)
[2023-11-14 19:27] LABS: CEA 5.9 ng/mL (See Note)
[2023-11-28] MEDS: Normal Saline Flush 10 ML SYR IVP (10:20)
[2023-11-28 10:28] LABS: Abs Immature Grans 0.02 10^3/uL (0.0-0.06); Absolute Basophil Count 0.03 10^3/uL (0.0-0.2); Absolute Eosinophil Count 0.07 10^3/uL (0.0-0.7); Absolute Lymphocyte Count 1.17 10^3/uL (1.2-3.4); Absolute Monocyte Count 0.52 10^3/uL (0.1-0.8); Absolute Neutrophil Count 3.07 10^3/uL (1.2-6.7); Basophils % 0.6; Eosinophils % 1.4; HGB 15.3 g/dL (13.5-17.5); Immature Grans % 0.4; MCH 33.2 pg (27.0-33.0); MCHC 35.6 % (32.0-36.0); MCV 93 fL (80-95); MPV 11.6 fL (8.0-11.0); Monocytes % 10.7; Neutrophils % 62.9; Platelet Count 108 10^3/uL (130-400); RBC 4.61 10^6/uL (4.36-5.78); RDW 13.4 % (11.8-14.1); RDW-SD 45.8 fL; WBC 4.88 10^3/uL (4.4-10.8)
[2023-11-28 10:40] LABS: ALT 20 U/L (16-63); AST 18 U/L (15-37); Albumin 3.6 g/dL (3.4-5.0); Alkaline Phosphatase 105 U/L (46-116); Anion Gap 8.5 mmol/L (3-11); BUN 19 mg/dL (7-18); Bilirubin, Total 0.7 mg/dL (0.2-1.0); CO2 26.5 mmol/L (21.0-32.0); Calcium 9.6 mg/dL (8.5-10.1); Chloride 107 mmol/L (98-107); Estimated GFR 79.97 (mL/min/1.73m2); Glucose 106 mg/dL (74-106); Sodium 142 mmol/L (136-145); Total Protein 7.3 g/dL (6.4-8.2)
[2023-11-28 19:02] LABS: CEA 6.4 ng/mL (See Note)
== END 2023-12-03 23:59 | disposition home or self-care (01) ==
LOC: INF 01:06
PROVIDERS: PCP Physician Assistant Medical; Visit Provider Internal Medicine Hematology & Oncology
DX: C18.9 Malignant neoplasm of colon, unspecified (principal); Z79.899 Other long term (current) drug therapy; Z45.2 Encounter for adjustment and management of vascular access device
CPT/HCPCS: 36415; 36591; 80053; 82378; 85025

== ENCOUNTER 2023-12-09 03:40 | Outpatient (RCR) | payer MEDICARE, SELFPAY ==
[2023-12-04 00:19] VITALS: BP 151/76; PULSE 71; RESP 16; TEMP 36.4
[2023-12-09] MEDS: Normal Saline Flush 10 ML SYR IVP (11:13)
[2023-12-09 11:23] LABS: Abs Immature Grans 0.02 10^3/uL (0.0-0.06); Absolute Basophil Count 0.03 10^3/uL (0.0-0.2); Absolute Eosinophil Count 0.08 10^3/uL (0.0-0.7); Absolute Lymphocyte Count 1.24 10^3/uL (1.2-3.4); Absolute Neutrophil Count 3.52 10^3/uL (1.2-6.7); Basophils % 0.5; Eosinophils % 1.5; HCT 40.8 % (40.0-50.0); HGB 14.8 g/dL (13.5-17.5); Immature Grans % 0.4; Lymphocytes % 22.6; MCH 33.6 pg (27.0-33.0); MCHC 36.3 % (32.0-36.0); MCV 93 fL (80-95); MPV 10.9 fL (8.0-11.0); Monocytes % 10.9; Neutrophils % 64.1; Platelet Count 138 10^3/uL (130-400); RDW 12.3 % (11.8-14.1); RDW-SD 42.2 fL; WBC 5.49 10^3/uL (4.4-10.8)
[2023-12-09 11:44] LABS: ALT 19 U/L (16-63); AST 17 U/L (15-37); Albumin 3.6 g/dL (3.4-5.0); Alkaline Phosphatase 109 U/L (46-116); Anion Gap 9.6 mmol/L (3-11); BUN 25 mg/dL (7-18); Bilirubin, Total 0.8 mg/dL (0.2-1.0); CO2 26.4 mmol/L (21.0-32.0); Calcium 9.1 mg/dL (8.5-10.1); Chloride 107 mmol/L (98-107); Estimated GFR 79.97 (mL/min/1.73m2); Glucose 113 mg/dL (74-106); Potassium 3.8 mmol/L (3.5-5.1); Sodium 143 mmol/L (136-145); Total Protein 7.3 g/dL (6.4-8.2)
[2023-12-09 19:18] LABS: CEA 6.5 ng/mL (See Note)
== END 2024-01-01 23:59 | disposition home or self-care (01) ==
LOC: INF 03:40
PROVIDERS: PCP Physician Assistant Medical; Visit Provider Internal Medicine Hematology & Oncology
DX: C18.9 Malignant neoplasm of colon, unspecified (principal); E78.5 Hyperlipidemia, unspecified; Z79.899 Other long term (current) drug therapy; Z45.2 Encounter for adjustment and management of vascular access device
CPT/HCPCS: 36591; 80053; 82378; 85025

== ENCOUNTER 2024-01-20 11:00 | Outpatient (RCR) | payer MEDICARE, SELFPAY ==
[2024-01-02 00:22] VITALS: BP 151/76; PULSE 71; RESP 16; TEMP 36.4
[2024-01-06] MEDS: Normal Saline Flush 10 ML SYR IVP (10:17)
[2024-01-06 10:23] LABS: Abs Immature Grans 0.01 10^3/uL (0.0-0.06); Absolute Basophil Count 0.02 10^3/uL (0.0-0.2); Absolute Lymphocyte Count 1.02 10^3/uL (1.2-3.4); Absolute Monocyte Count 0.51 10^3/uL (0.1-0.8); Absolute Neutrophil Count 4.92 10^3/uL (1.2-6.7); Basophils % 0.3; Eosinophils % 1.5; HCT 41.4 % (40.0-50.0); HGB 14.6 g/dL (13.5-17.5); Immature Grans % 0.2; Lymphocytes % 15.5; MCH 32.9 pg (27.0-33.0); MCHC 35.3 % (32.0-36.0); MCV 93 fL (80-95); MPV 10.6 fL (8.0-11.0); Monocytes % 7.8; Neutrophils % 74.7; Platelet Count 138 10^3/uL (130-400); RBC 4.44 10^6/uL (4.36-5.78); RDW 11.3 % (11.8-14.1); RDW-SD 38.4 fL; WBC 6.58 10^3/uL (4.4-10.8)
[2024-01-06 10:42] LABS: Iron 168 ug/dL (65-175); Total Iron Binding Capacity 263 ug/dL (250-450); Transferrin Sat 64 % (20-55)
[2024-01-06 10:50] LABS: ALT 25 U/L (16-63); AST 21 U/L (15-37); Albumin 3.6 g/dL (3.4-5.0); Alkaline Phosphatase 115 U/L (46-116); Anion Gap 8.4 mmol/L (3-11); BUN 30 mg/dL (7-18); Bilirubin, Total 0.7 mg/dL (0.2-1.0); CO2 27.6 mmol/L (21.0-32.0); CREATININE 1.1 mg/dL (0.70-1.30); Calcium 9.4 mg/dL (8.5-10.1); Calculated LDL 80 mg/dL (<100); Chloride 107 mmol/L (98-107); Cholesterol 153 mg/dL (<200); Estimated GFR 71.32 (mL/min/1.73m2); Ferritin 139 ng/mL (26-388); Glucose 112 mg/dL (74-106); HDL Cholesterol 46 mg/dL (40-60); Potassium 3.9 mmol/L (3.5-5.1); Sodium 143 mmol/L (136-145); Total Protein 7.3 g/dL (6.4-8.2); Triglyceride 139 mg/dL (<150)
[2024-01-06 21:16] LABS: CEA 11.1 ng/mL (See Note)
[2024-01-20] MEDS: Normal Saline Flush 10 ML SYR IVP (11:23)
[2024-01-20 11:40] LABS: Abs Immature Grans 0.02 10^3/uL (0.0-0.06); Absolute Basophil Count 0.01 10^3/uL (0.0-0.2); Absolute Eosinophil Count 0.07 10^3/uL (0.0-0.7); Absolute Monocyte Count 0.41 10^3/uL (0.1-0.8); Absolute Neutrophil Count 5.38 10^3/uL (1.2-6.7); Basophils % 0.1; HCT 42.1 % (40.0-50.0); HGB 14.6 g/dL (13.5-17.5); Immature Grans % 0.3; Lymphocytes % 15.7; MCH 33.2 pg (27.0-33.0); MCHC 34.7 % (32.0-36.0); MCV 96 fL (80-95); MPV 11.5 fL (8.0-11.0); Monocytes % 5.9; Platelet Count 115 10^3/uL (130-400); RDW 11.4 % (11.8-14.1); RDW-SD 40.3 fL; WBC 6.99 10^3/uL (4.4-10.8)
[2024-01-20 11:52] LABS: ALT 21 U/L (16-63); AST 16 U/L (15-37); Albumin 3.7 g/dL (3.4-5.0); Alkaline Phosphatase 108 U/L (46-116); Anion Gap 9.5 mmol/L (3-11); BUN 27 mg/dL (7-18); Bilirubin, Total 0.5 mg/dL (0.2-1.0); CO2 28.5 mmol/L (21.0-32.0); CREATININE 1.1 mg/dL (0.70-1.30); Chloride 107 mmol/L (98-107); Estimated GFR 71.32 (mL/min/1.73m2); Glucose 108 mg/dL (74-106); Potassium 3.6 mmol/L (3.5-5.1); Sodium 145 mmol/L (136-145); Total Protein 7.3 g/dL (6.4-8.2)
[2024-01-20 18:12] LABS: CEA 11.2 ng/mL (See Note)
== END 2024-02-01 23:59 | disposition home or self-care (01) ==
LOC: INF 11:00
PROVIDERS: PCP Physician Assistant Medical; Visit Provider Internal Medicine Hematology & Oncology
DX: E78.5 Hyperlipidemia, unspecified (principal); C18.9 Malignant neoplasm of colon, unspecified; Z79.899 Other long term (current) drug therapy; Z45.2 Encounter for adjustment and management of vascular access device
CPT/HCPCS: 36591; 80053; 80061; 82378; 82728; 83540; 83550; 85025

== ENCOUNTER 2024-03-02 05:32 | Outpatient (RCR) | payer MEDICARE, SELFPAY ==
[2024-02-02 00:19] VITALS: BP 151/76; PULSE 71; RESP 16; TEMP 36.4
[2024-02-03] MEDS: Normal Saline Flush 10 ML SYR IVP (11:14)
[2024-02-03 11:31] LABS: Abs Immature Grans 0.01 10^3/uL (0.0-0.06); Absolute Basophil Count 0.03 10^3/uL (0.0-0.2); Absolute Eosinophil Count 0.08 10^3/uL (0.0-0.7); Absolute Lymphocyte Count 1.17 10^3/uL (1.2-3.4); Absolute Monocyte Count 0.39 10^3/uL (0.1-0.8); Absolute Neutrophil Count 2.76 10^3/uL (1.2-6.7); Basophils % 0.7; Eosinophils % 1.8; HCT 42.8 % (40.0-50.0); HGB 14.9 g/dL (13.5-17.5); Immature Grans % 0.2; Lymphocytes % 26.4; MCHC 34.8 % (32.0-36.0); MCV 95 fL (80-95); MPV 11.3 fL (8.0-11.0); Monocytes % 8.8; Neutrophils % 62.1; Platelet Count 137 10^3/uL (130-400); RBC 4.51 10^6/uL (4.36-5.78); RDW 11.5 % (11.8-14.1); RDW-SD 39.7 fL; WBC 4.44 10^3/uL (4.4-10.8)
[2024-02-03 11:42] LABS: ALT 17 U/L (16-63); AST 15 U/L (15-37); Albumin 3.7 g/dL (3.4-5.0); Alkaline Phosphatase 106 U/L (46-116); BUN 28 mg/dL (7-18); Bilirubin, Total 0.5 mg/dL (0.2-1.0); CREATININE 1.1 mg/dL (0.70-1.30); Calcium 9.2 mg/dL (8.5-10.1); Chloride 107 mmol/L (98-107); Estimated GFR 71.32 (mL/min/1.73m2); Glucose 97 mg/dL (74-106); Sodium 145 mmol/L (136-145); Total Protein 7.4 g/dL (6.4-8.2)
[2024-02-03 18:47] LABS: CEA 8.1 ng/mL (See Note)
[2024-02-17] MEDS: Normal Saline Flush 10 ML SYR IVP (11:01)
[2024-02-17 11:19] LABS: Absolute Basophil Count 0.01 10^3/uL (0.0-0.2); Absolute Eosinophil Count 0.11 10^3/uL (0.0-0.7); Absolute Lymphocyte Count 1.22 10^3/uL (1.2-3.4); Absolute Monocyte Count 0.49 10^3/uL (0.1-0.8); Absolute Neutrophil Count 2.81 10^3/uL (1.2-6.7); Basophils % 0.2; Eosinophils % 2.4; HCT 41.7 % (40.0-50.0); HGB 14.7 g/dL (13.5-17.5); Lymphocytes % 26.3; MCHC 35.3 % (32.0-36.0); MCV 94 fL (80-95); MPV 11.1 fL (8.0-11.0); Monocytes % 10.6; Neutrophils % 60.5; Platelet Count 119 10^3/uL (130-400); RBC 4.45 10^6/uL (4.36-5.78); RDW 11.5 % (11.8-14.1); RDW-SD 39.7 fL; WBC 4.64 10^3/uL (4.4-10.8)
[2024-02-17 11:36] LABS: ALT 22 U/L (16-63); AST 19 U/L (15-37); Albumin 3.7 g/dL (3.4-5.0); Alkaline Phosphatase 105 U/L (46-116); Anion Gap 9.1 mmol/L (3-11); BUN 19 mg/dL (7-18); Bilirubin, Total 0.6 mg/dL (0.2-1.0); CO2 27.9 mmol/L (21.0-32.0); CREATININE 1.1 mg/dL (0.70-1.30); Calcium 9.1 mg/dL (8.5-10.1); Chloride 106 mmol/L (98-107); Estimated GFR 71.32 (mL/min/1.73m2); Glucose 99 mg/dL (74-106); Sodium 143 mmol/L (136-145); Total Protein 7.2 g/dL (6.4-8.2)
[2024-02-17 18:34] LABS: CEA 6.3 ng/mL (See Note)
[2024-03-02 11:31] LABS: Abs Immature Grans 0.02 10^3/uL (0.0-0.06); Absolute Basophil Count 0.03 10^3/uL (0.0-0.2); Absolute Eosinophil Count 0.11 10^3/uL (0.0-0.7); Absolute Lymphocyte Count 1.17 10^3/uL (1.2-3.4); Absolute Monocyte Count 0.45 10^3/uL (0.1-0.8); Absolute Neutrophil Count 2.59 10^3/uL (1.2-6.7); Basophils % 0.7; Eosinophils % 2.5; HCT 40.4 % (40.0-50.0); HGB 14.2 g/dL (13.5-17.5); Immature Grans % 0.5; Lymphocytes % 26.8; MCH 32.6 pg (27.0-33.0); MCHC 35.1 % (32.0-36.0); MCV 93 fL (80-95); MPV 10.9 fL (8.0-11.0); Monocytes % 10.3; Neutrophils % 59.2; Platelet Count 142 10^3/uL (130-400); RBC 4.36 10^6/uL (4.36-5.78); RDW 11.7 % (11.8-14.1); WBC 4.37 10^3/uL (4.4-10.8)
[2024-03-02] MEDS: Normal Saline Flush 10 ML SYR IVP (11:33)
[2024-03-02 11:44] LABS: ALT 19 U/L (16-63); AST 11 U/L (15-37); Albumin 3.7 g/dL (3.4-5.0); Alkaline Phosphatase 115 U/L (46-116); BUN 23 mg/dL (7-18); Bilirubin, Total 0.6 mg/dL (0.2-1.0); Calcium 8.9 mg/dL (8.5-10.1); Chloride 109 mmol/L (98-107); Estimated GFR 79.97 (mL/min/1.73m2); Glucose 105 mg/dL (74-106); Potassium 3.7 mmol/L (3.5-5.1); Sodium 144 mmol/L (136-145); Total Protein 7.2 g/dL (6.4-8.2)
[2024-03-02 18:21] LABS: CEA 8.7 ng/mL (See Note)
== END 2024-03-02 23:59 | disposition home or self-care (01) ==
LOC: INF 05:32
PROVIDERS: PCP Physician Assistant Medical; Visit Provider Internal Medicine Hematology & Oncology
DX: C18.9 Malignant neoplasm of colon, unspecified (principal); Z45.2 Encounter for adjustment and management of vascular access device
CPT/HCPCS: 36591; 80053; 82378; 85025

== ENCOUNTER 2024-03-30 01:09 | Outpatient (RCR) | payer MEDICARE, SELFPAY ==
[2024-03-03 00:25] VITALS: BP 151/76; PULSE 71; RESP 16; TEMP 36.4
[2024-03-16 12:06] LABS: Abs Immature Grans 0.01 10^3/uL (0.0-0.06); Absolute Basophil Count 0.02 10^3/uL (0.0-0.2); Absolute Eosinophil Count 0.13 10^3/uL (0.0-0.7); Absolute Lymphocyte Count 1.01 10^3/uL (1.2-3.4); Absolute Neutrophil Count 2.56 10^3/uL (1.2-6.7); Basophils % 0.5 %; Eosinophils % 3.1 %; HCT 39.8 % (40.0-50.0); HGB 13.8 g/dL (13.5-17.5); Immature Grans % 0.2 %; Lymphocytes % 24.5 %; MCH 32.3 pg (27.0-33.0); MCHC 34.7 % (32.0-36.0); MCV 93 fL (80-95); MPV 11.4 fL (8.0-11.0); Monocytes % 9.7 %; Platelet Count 118 10^3/uL (130-400); RBC 4.27 10^6/uL (4.36-5.78); RDW 11.9 % (11.8-14.1); RDW-SD 40.9 fL; WBC 4.13 10^3/uL (4.4-10.8)
[2024-03-16 12:22] LABS: ALT 19 U/L (16-63); AST 8 U/L (15-37); Albumin 3.7 g/dL (3.4-5.0); Alkaline Phosphatase 110 U/L (46-116); Anion Gap 6.1 mmol/L (3-11); BUN 20 mg/dL (7-18); Bilirubin, Total 0.7 mg/dL (0.2-1.0); CO2 29.9 mmol/L (21.0-32.0); CREATININE 0.9 mg/dL (0.70-1.30); Calcium 9.1 mg/dL (8.5-10.1); Chloride 109 mmol/L (98-107); Estimated GFR 90.74 (mL/min/1.73m2); Glucose 100 mg/dL (74-106); Potassium 3.8 mmol/L (3.5-5.1); Sodium 145 mmol/L (136-145); Total Protein 7.1 g/dL (6.4-8.2)
[2024-03-16] MEDS: Normal Saline Flush 10 ML SYR IVP (12:22)
[2024-03-16 12:23] LABS: C-Reactive Protein < 0.50 mg/dL (<or=0.5)
[2024-03-16 12:29] LABS: Hemoglobin A1C 5.2 % (<5.7)
[2024-03-16 12:42] LABS: Vitamin D 25 Total 80.6 ng/mL (30-100)
[2024-03-16 18:48] LABS: Fibrinogen 358 mg/dL (171-384)
[2024-03-16 19:26] LABS: CEA 7.5 ng/mL (See Note)
[2024-03-30] MEDS: Normal Saline Flush 10 ML SYR IVP (11:19)
[2024-03-30 11:31] LABS: Abs Immature Grans 0.02 10^3/uL (0.0-0.06); Absolute Basophil Count 0.02 10^3/uL (0.0-0.2); Absolute Eosinophil Count 0.13 10^3/uL (0.0-0.7); Absolute Lymphocyte Count 1.11 10^3/uL (1.2-3.4); Absolute Monocyte Count 0.44 10^3/uL (0.1-0.8); Absolute Neutrophil Count 2.56 10^3/uL (1.2-6.7); Basophils % 0.5 %; HCT 39.1 % (40.0-50.0); HGB 13.4 g/dL (13.5-17.5); Immature Grans % 0.5 %; Lymphocytes % 25.9 %; MCH 32.2 pg (27.0-33.0); MCHC 34.3 % (32.0-36.0); MCV 94 fL (80-95); Monocytes % 10.3 %; Neutrophils % 59.8 %; Platelet Count 135 10^3/uL (130-400); RBC 4.16 10^6/uL (4.36-5.78); RDW 12.7 % (11.8-14.1); RDW-SD 43.6 fL; WBC 4.28 10^3/uL (4.4-10.8)
[2024-03-30 11:57] LABS: ALT 22 U/L (16-63); AST 18 U/L (15-37); Albumin 3.7 g/dL (3.4-5.0); Alkaline Phosphatase 104 U/L (46-116); Anion Gap 7.7 mmol/L (3-11); BUN 22 mg/dL (7-18); Bilirubin, Total 0.6 mg/dL (0.2-1.0); CO2 27.3 mmol/L (21.0-32.0); CREATININE 1.1 mg/dL (0.70-1.30); Calcium 9.1 mg/dL (8.5-10.1); Chloride 107 mmol/L (98-107); Estimated GFR 71.32 (mL/min/1.73m2); Glucose 107 mg/dL (74-106); Sodium 142 mmol/L (136-145)
[2024-03-30 18:18] LABS: CEA 7.3 ng/mL (See Note)
== END 2024-04-02 23:59 | disposition home or self-care (01) ==
LOC: INF 01:09
PROVIDERS: PCP Physician Assistant Medical; Visit Provider Internal Medicine Hematology & Oncology
DX: R73.9 Hyperglycemia, unspecified (principal); C18.9 Malignant neoplasm of colon, unspecified; Z45.2 Encounter for adjustment and management of vascular access device
CPT/HCPCS: 36591; 80053; 82306; 85384; 82378; 83036; 85025; 86140

== ENCOUNTER 2024-04-27 02:20 | Outpatient (RCR) | payer MEDICARE, SELFPAY ==
[2024-04-03 00:26] VITALS: BP 151/76; PULSE 71; RESP 16; TEMP 36.4
[2024-04-13] MEDS: Normal Saline Flush 10 ML SYR IVP (11:05)
[2024-04-13 11:42] LABS: Abs Immature Grans 0.01 10^3/uL (0.0-0.06); Absolute Basophil Count 0.02 10^3/uL (0.0-0.2); Absolute Eosinophil Count 0.14 10^3/uL (0.0-0.7); Absolute Monocyte Count 0.44 10^3/uL (0.1-0.8); Absolute Neutrophil Count 2.76 10^3/uL (1.2-6.7); Basophils % 0.5 %; Eosinophils % 3.2 %; HCT 39.2 % (40.0-50.0); HGB 14.1 g/dL (13.5-17.5); Immature Grans % 0.2 %; Lymphocytes % 22.9 %; MCH 33.4 pg (27.0-33.0); MCV 93 fL (80-95); MPV 11.4 fL (8.0-11.0); Monocytes % 10.1 %; Neutrophils % 63.1 %; Platelet Count 137 10^3/uL (130-400); RBC 4.22 10^6/uL (4.36-5.78); RDW 12.7 % (11.8-14.1); RDW-SD 43.3 fL; WBC 4.37 10^3/uL (4.4-10.8)
[2024-04-13 11:55] LABS: ALT 20 U/L (16-63); AST 12 U/L (15-37); Albumin 3.7 g/dL (3.4-5.0); Alkaline Phosphatase 95 U/L (46-116); Anion Gap 4.3 mmol/L (3-11); BUN 23 mg/dL (7-18); Bilirubin, Total 0.5 mg/dL (0.2-1.0); CO2 30.7 mmol/L (21.0-32.0); Calcium 9.1 mg/dL (8.5-10.1); Chloride 108 mmol/L (98-107); Estimated GFR 79.47 (mL/min/1.73m2); Glucose 106 mg/dL (74-106); Sodium 143 mmol/L (136-145)
[2024-04-13 20:25] LABS: CEA 8.1 ng/mL (See Note)
[2024-04-27] MEDS: Normal Saline Flush 10 ML SYR IVP (11:18)
[2024-04-27 11:22] LABS: Abs Immature Grans 0.02 10^3/uL (0.0-0.06); Absolute Basophil Count 0.02 10^3/uL (0.0-0.2); Absolute Eosinophil Count 0.13 10^3/uL (0.0-0.7); Absolute Lymphocyte Count 1.13 10^3/uL (1.2-3.4); Absolute Neutrophil Count 3.04 10^3/uL (1.2-6.7); Basophils % 0.4 %; Eosinophils % 2.7 %; HCT 40.6 % (40.0-50.0); HGB 14.1 g/dL (13.5-17.5); Immature Grans % 0.4 %; Lymphocytes % 23.8 %; MCH 32.6 pg (27.0-33.0); MCHC 34.7 % (32.0-36.0); MCV 94 fL (80-95); MPV 10.9 fL (8.0-11.0); Monocytes % 8.4 %; Neutrophils % 64.3 %; Platelet Count 144 10^3/uL (130-400); RBC 4.32 10^6/uL (4.36-5.78); RDW 12.1 % (11.8-14.1); RDW-SD 42.1 fL; WBC 4.74 10^3/uL (4.4-10.8)
[2024-04-27 11:34] LABS: ALT 18 U/L (16-63); AST 9 U/L (15-37); Albumin 3.8 g/dL (3.4-5.0); Alkaline Phosphatase 107 U/L (46-116); Anion Gap 8.7 mmol/L (3-11); BUN 18 mg/dL (7-18); Bilirubin, Total 0.47 mg/dL (0.2-1.0); CO2 28.3 mmol/L (21.0-32.0); Calcium 9.3 mg/dL (8.5-10.1); Chloride 107 mmol/L (98-107); Estimated GFR 79.47 (mL/min/1.73m2); Glucose 99 mg/dL (74-106); Potassium 4.1 mmol/L (3.5-5.1); Sodium 144 mmol/L (136-145); Total Protein 7.3 g/dL (6.4-8.2)
[2024-04-27 19:08] LABS: CEA 9.7 ng/mL (See Note)
== END 2024-05-02 23:59 | disposition home or self-care (01) ==
LOC: INF 02:20
PROVIDERS: PCP Physician Assistant Medical; Visit Provider Internal Medicine Hematology & Oncology
DX: C18.9 Malignant neoplasm of colon, unspecified (principal); Z45.2 Encounter for adjustment and management of vascular access device
CPT/HCPCS: 36591; 80053; 82378; 85025

== ENCOUNTER 2024-05-25 01:15 | Outpatient (RCR) | payer MEDICARE, SELFPAY ==
[2024-05-03 00:26] VITALS: BP 151/76; PULSE 71; RESP 16; TEMP 36.4
[2024-05-11 11:22] LABS: Abs Immature Grans 0.01 10^3/uL (0.0-0.06); Absolute Basophil Count 0.03 10^3/uL (0.0-0.2); Absolute Eosinophil Count 0.14 10^3/uL (0.0-0.7); Absolute Lymphocyte Count 1.21 10^3/uL (1.2-3.4); Absolute Monocyte Count 0.46 10^3/uL (0.1-0.8); Absolute Neutrophil Count 2.97 10^3/uL (1.2-6.7); Basophils % 0.6 %; Eosinophils % 2.9 %; HCT 39.9 % (40.0-50.0); HGB 13.9 g/dL (13.5-17.5); Immature Grans % 0.2 %; Lymphocytes % 25.1 %; MCH 33.1 pg (27.0-33.0); MCHC 34.8 % (32.0-36.0); MCV 95 fL (80-95); MPV 11.2 fL (8.0-11.0); Monocytes % 9.5 %; Neutrophils % 61.7 %; Platelet Count 138 10^3/uL (130-400); RDW 12.3 % (11.8-14.1); RDW-SD 42.5 fL; WBC 4.82 10^3/uL (4.4-10.8)
[2024-05-11] MEDS: Normal Saline Flush 10 ML SYR IVP (11:26)
[2024-05-11 11:35] LABS: ALT 16 U/L (16-63); AST 7 U/L (15-37); Albumin 3.6 g/dL (3.4-5.0); Alkaline Phosphatase 99 U/L (46-116); Anion Gap 7.1 mmol/L (3-11); BUN 16 mg/dL (7-18); Bilirubin, Total 0.69 mg/dL (0.2-1.0); CO2 28.9 mmol/L (21.0-32.0); Calcium 9.1 mg/dL (8.5-10.1); Chloride 107 mmol/L (98-107); Estimated GFR 79.47 (mL/min/1.73m2); Glucose 103 mg/dL (74-106); Potassium 3.9 mmol/L (3.5-5.1); Sodium 143 mmol/L (136-145)
[2024-05-11 22:45] LABS: CEA 8.9 ng/mL (See Note)
[2024-05-25] MEDS: Normal Saline Flush 10 ML SYR IVP (11:02)
[2024-05-25 11:16] LABS: Abs Immature Grans 0.01 10^3/uL (0.0-0.06); Absolute Basophil Count 0.02 10^3/uL (0.0-0.2); Absolute Eosinophil Count 0.11 10^3/uL (0.0-0.7); Absolute Lymphocyte Count 1.23 10^3/uL (1.2-3.4); Absolute Monocyte Count 0.47 10^3/uL (0.1-0.8); Absolute Neutrophil Count 2.95 10^3/uL (1.2-6.7); Basophils % 0.4 %; Eosinophils % 2.3 %; HCT 41.1 % (40.0-50.0); HGB 14.2 g/dL (13.5-17.5); Immature Grans % 0.2 %; Lymphocytes % 25.7 %; MCH 33.2 pg (27.0-33.0); MCHC 34.5 % (32.0-36.0); MCV 96 fL (80-95); MPV 11.1 fL (8.0-11.0); Monocytes % 9.8 %; Neutrophils % 61.6 %; Platelet Count 133 10^3/uL (130-400); RBC 4.28 10^6/uL (4.36-5.78); RDW 12.2 % (11.8-14.1); RDW-SD 42.5 fL; WBC 4.79 10^3/uL (4.4-10.8)
[2024-05-25 11:30] LABS: ALT 17 U/L (16-63); AST 14 U/L (15-37); Albumin 3.7 g/dL (3.4-5.0); Alkaline Phosphatase 105 U/L (46-116); Anion Gap 8.1 mmol/L (3-11); BUN 24 mg/dL (7-18); Bilirubin, Total 0.53 mg/dL (0.2-1.0); CO2 29.9 mmol/L (21.0-32.0); CREATININE 1.1 mg/dL (0.70-1.30); Calcium 9.1 mg/dL (8.5-10.1); Chloride 106 mmol/L (98-107); Estimated GFR 70.88 (mL/min/1.73m2); Glucose 100 mg/dL (74-106); Sodium 144 mmol/L (136-145); Total Protein 7.1 g/dL (6.4-8.2)
[2024-05-25 18:55] LABS: CEA 9.4 ng/mL (See Note)
== END 2024-06-02 23:59 | disposition home or self-care (01) ==
LOC: INF 01:15
PROVIDERS: PCP Physician Assistant Medical; Visit Provider Internal Medicine Hematology & Oncology
DX: C18.9 Malignant neoplasm of colon, unspecified (principal); Z45.2 Encounter for adjustment and management of vascular access device
CPT/HCPCS: 36591; 80053; 82378; 85025

== ENCOUNTER 2024-06-22 01:42 | Outpatient (RCR) | payer MEDICARE, SELFPAY ==
[2024-06-03 00:16] VITALS: BP 151/76; PULSE 71; RESP 16; TEMP 36.4
[2024-06-08 11:31] LABS: Abs Immature Grans 0.01 10^3/uL (0.0-0.06); Absolute Basophil Count 0.03 10^3/uL (0.0-0.2); Absolute Eosinophil Count 0.12 10^3/uL (0.0-0.7); Absolute Lymphocyte Count 1.01 10^3/uL (1.2-3.4); Absolute Monocyte Count 0.43 10^3/uL (0.1-0.8); Absolute Neutrophil Count 2.56 10^3/uL (1.2-6.7); Basophils % 0.7 %; Eosinophils % 2.9 %; HCT 38.6 % (40.0-50.0); HGB 13.8 g/dL (13.5-17.5); Immature Grans % 0.2 %; Lymphocytes % 24.3 %; MCH 32.9 pg (27.0-33.0); MCHC 35.8 % (32.0-36.0); MCV 92 fL (80-95); MPV 10.8 fL (8.0-11.0); Monocytes % 10.3 %; Neutrophils % 61.6 %; Platelet Count 146 10^3/uL (130-400); RBC 4.19 10^6/uL (4.36-5.78); RDW 11.8 % (11.8-14.1); RDW-SD 39.5 fL; WBC 4.16 10^3/uL (4.4-10.8)
[2024-06-08] MEDS: Normal Saline Flush 10 ML SYR IVP (11:35)
[2024-06-08 18:07] LABS: CEA 9.2 ng/mL (See Note)
[2024-06-08 20:50] LABS: ALT 23 U/L (16-63); AST 16 U/L (15-37); Albumin 3.9 g/dL (3.4-5.0); Alkaline Phosphatase 106 U/L (46-116); Anion Gap 8.7 mmol/L (3-11); BUN 18 mg/dL (7-18); Bilirubin, Total 0.47 mg/dL (0.2-1.0); CO2 28.3 mmol/L (21.0-32.0); Chloride 105 mmol/L (98-107); Estimated GFR 79.47 (mL/min/1.73m2); Glucose 110 mg/dL (74-106); Sodium 142 mmol/L (136-145); Total Protein 7.2 g/dL (6.4-8.2)
[2024-06-22 11:25] LABS: Abs Immature Grans 0.01 10^3/uL (0.0-0.06); Absolute Basophil Count 0.02 10^3/uL (0.0-0.2); Absolute Eosinophil Count 0.09 10^3/uL (0.0-0.7); Absolute Lymphocyte Count 0.99 10^3/uL (1.2-3.4); Absolute Monocyte Count 0.39 10^3/uL (0.1-0.8); Absolute Neutrophil Count 2.31 10^3/uL (1.2-6.7); Basophils % 0.5 %; Eosinophils % 2.4 %; HCT 39.9 % (40.0-50.0); HGB 14.1 g/dL (13.5-17.5); Immature Grans % 0.3 %; MCH 33.3 pg (27.0-33.0); MCHC 35.3 % (32.0-36.0); MCV 94 fL (80-95); MPV 11.1 fL (8.0-11.0); Monocytes % 10.2 %; Neutrophils % 60.6 %; Platelet Count 136 10^3/uL (130-400); RBC 4.24 10^6/uL (4.36-5.78); RDW 11.9 % (11.8-14.1); RDW-SD 40.6 fL; WBC 3.81 10^3/uL (4.4-10.8)
[2024-06-22] MEDS: Normal Saline Flush 10 ML SYR IVP (11:34)
[2024-06-22 11:41] LABS: ALT 18 U/L (16-63); AST 13 U/L (15-37); Albumin 3.7 g/dL (3.4-5.0); Alkaline Phosphatase 105 U/L (46-116); Anion Gap 8.9 mmol/L (3-11); BUN 23 mg/dL (7-18); CO2 28.1 mmol/L (21.0-32.0); CREATININE 1.1 mg/dL (0.70-1.30); Calcium 9.3 mg/dL (8.5-10.1); Chloride 107 mmol/L (98-107); Estimated GFR 70.88 (mL/min/1.73m2); Glucose 105 mg/dL (74-106); Sodium 144 mmol/L (136-145); Total Protein 7.1 g/dL (6.4-8.2)
[2024-06-22 19:46] LABS: CEA 8.4 ng/mL (See Note)
== END 2024-07-03 23:59 | disposition home or self-care (01) ==
LOC: INF 01:42
PROVIDERS: PCP Physician Assistant Medical; Visit Provider Internal Medicine Hematology & Oncology
DX: C18.9 Malignant neoplasm of colon, unspecified (principal); Z79.899 Other long term (current) drug therapy; Z45.2 Encounter for adjustment and management of vascular access device
CPT/HCPCS: 36591; 80053; 82378; 85025

== ENCOUNTER 2024-07-16 00:56 | Outpatient (RCR) | payer MEDICARE, SELFPAY ==
[2024-07-04 00:08] VITALS: BP 151/76; PULSE 71; RESP 16; TEMP 36.4
[2024-07-06] MEDS: Normal Saline Flush 10 ML SYR IVP (11:39)
[2024-07-06 11:51] LABS: Abs Immature Grans 0.01 10^3/uL (0.0-0.06); Absolute Basophil Count 0.03 10^3/uL (0.0-0.2); Absolute Eosinophil Count 0.11 10^3/uL (0.0-0.7); Absolute Lymphocyte Count 1.01 10^3/uL (1.2-3.4); Basophils % 0.8 %; Eosinophils % 2.8 %; HCT 39.9 % (40.0-50.0); HGB 14.1 g/dL (13.5-17.5); Immature Grans % 0.3 %; Lymphocytes % 25.4 %; MCH 33.1 pg (27.0-33.0); MCHC 35.3 % (32.0-36.0); MCV 94 fL (80-95); MPV 11.3 fL (8.0-11.0); Monocytes % 10.1 %; Neutrophils % 60.6 %; Platelet Count 135 10^3/uL (130-400); RBC 4.26 10^6/uL (4.36-5.78); RDW 12.3 % (11.8-14.1); RDW-SD 42.5 fL; WBC 3.98 10^3/uL (4.4-10.8)
[2024-07-06 11:56] LABS: Absolute Neutrophil Count 2.41 10^3/uL (1.2-6.7)
[2024-07-06 12:06] LABS: ALT 16 U/L (16-63); AST 16 U/L (15-37); Albumin 3.7 g/dL (3.4-5.0); Alkaline Phosphatase 114 U/L (46-116); Anion Gap 6.8 mmol/L (3-11); BUN 23 mg/dL (7-18); Bilirubin, Total 0.45 mg/dL (0.2-1.0); CO2 28.2 mmol/L (21.0-32.0); Calcium 9.3 mg/dL (8.5-10.1); Chloride 110 mmol/L (98-107); Estimated GFR 79.47 (mL/min/1.73m2); Glucose 98 mg/dL (74-106); Potassium 3.9 mmol/L (3.5-5.1); Sodium 145 mmol/L (136-145); Total Protein 7.1 g/dL (6.4-8.2)
[2024-07-06 18:19] LABS: CEA 10.9 ng/mL (See Note)
[2024-07-20] MEDS: Normal Saline Flush 10 ML SYR IVP (11:19)
[2024-07-20 11:24] LABS: Abs Immature Grans 0.01 10^3/uL (0.0-0.06); Absolute Basophil Count 0.03 10^3/uL (0.0-0.2); Absolute Eosinophil Count 0.09 10^3/uL (0.0-0.7); Absolute Lymphocyte Count 1.06 10^3/uL (1.2-3.4); Absolute Monocyte Count 0.41 10^3/uL (0.1-0.8); Basophils % 0.8 %; Eosinophils % 2.4 %; HCT 42.5 % (40.0-50.0); HGB 14.8 g/dL (13.5-17.5); Immature Grans % 0.3 %; Lymphocytes % 28.6 %; MCHC 34.8 % (32.0-36.0); MCV 95 fL (80-95); MPV 11.3 fL (8.0-11.0); Monocytes % 11.1 %; Neutrophils % 56.8 %; Platelet Count 142 10^3/uL (130-400); RBC 4.48 10^6/uL (4.36-5.78); RDW 12.7 % (11.8-14.1); RDW-SD 44.4 fL
[2024-07-20 11:37] LABS: ALT 20 U/L (16-63); AST 17 U/L (15-37); Albumin 3.8 g/dL (3.4-5.0); Alkaline Phosphatase 123 U/L (46-116); Anion Gap 6.4 mmol/L (3-11); BUN 23 mg/dL (7-18); Bilirubin, Total 0.59 mg/dL (0.2-1.0); CO2 29.6 mmol/L (21.0-32.0); CREATININE 1.1 mg/dL (0.70-1.30); Calcium 9.5 mg/dL (8.5-10.1); Chloride 106 mmol/L (98-107); Estimated GFR 70.88 (mL/min/1.73m2); Glucose 103 mg/dL (74-106); Potassium 4.1 mmol/L (3.5-5.1); Sodium 142 mmol/L (136-145); Total Protein 7.3 g/dL (6.4-8.2)
[2024-07-20 22:25] LABS: CEA 11.4 ng/mL (See Note)
== END 2024-08-02 23:59 | disposition home or self-care (01) ==
LOC: INF 00:56
PROVIDERS: PCP Physician Assistant Medical; Visit Provider Internal Medicine Hematology & Oncology
DX: C18.9 Malignant neoplasm of colon, unspecified (principal)
CPT/HCPCS: 36591; 80053; 82378; 85025

== ENCOUNTER 2024-08-03 10:59 | Outpatient (RCR) | payer MEDICARE, SELFPAY ==
[2024-08-03 00:07] VITALS: BP 151/76; PULSE 71; RESP 16; TEMP 36.4
[2024-08-03] MEDS: Normal Saline Flush 10 ML SYR IVP (11:25)
[2024-08-03 11:36] LABS: Abs Immature Grans 0.06 10^3/uL (0.0-0.06); Absolute Basophil Count 0.04 10^3/uL (0.0-0.2); Absolute Eosinophil Count 0.08 10^3/uL (0.0-0.7); Absolute Lymphocyte Count 0.95 10^3/uL (1.2-3.4); Absolute Monocyte Count 0.46 10^3/uL (0.1-0.8); Absolute Neutrophil Count 3.04 10^3/uL (1.2-6.7); Basophils % 0.9 %; Eosinophils % 1.7 %; HCT 38.3 % (40.0-50.0); HGB 13.5 g/dL (13.5-17.5); Immature Grans % 1.3 %; Lymphocytes % 20.5 %; MCH 32.6 pg (27.0-33.0); MCHC 35.2 % (32.0-36.0); MCV 93 fL (80-95); MPV 10.4 fL (8.0-11.0); Monocytes % 9.9 %; Neutrophils % 65.7 %; Platelet Count 182 10^3/uL (130-400); RBC 4.14 10^6/uL (4.36-5.78); RDW 12.5 % (11.8-14.1); RDW-SD 42.4 fL; WBC 4.63 10^3/uL (4.4-10.8)
[2024-08-03 11:51] LABS: ALT 16 U/L (16-63); AST 14 U/L (15-37); Albumin 3.3 g/dL (3.4-5.0); Alkaline Phosphatase 100 U/L (46-116); Anion Gap 6.9 mmol/L (3-11); BUN 20 mg/dL (7-18); Bilirubin, Total 0.36 mg/dL (0.2-1.0); CO2 27.1 mmol/L (21.0-32.0); CREATININE 0.9 mg/dL (0.70-1.30); Calcium 9.1 mg/dL (8.5-10.1); Chloride 106 mmol/L (98-107); Estimated GFR 90.18 (mL/min/1.73m2); Glucose 94 mg/dL (74-106); Potassium 3.7 mmol/L (3.5-5.1); Sodium 140 mmol/L (136-145); Total Protein 6.7 g/dL (6.4-8.2)
[2024-08-03 18:51] LABS: CEA 10.1 ng/mL (See Note)
== END 2024-09-02 23:59 | disposition home or self-care (01) ==
LOC: INF 10:59
PROVIDERS: PCP Physician Assistant Medical; Visit Provider Internal Medicine Hematology & Oncology
DX: C18.9 Malignant neoplasm of colon, unspecified (principal); Z45.2 Encounter for adjustment and management of vascular access device
CPT/HCPCS: 36591; 80053; 96523; 82378; 85025

== ENCOUNTER 2024-08-31 01:52 | Outpatient (RCR) | payer MEDICARE, SELFPAY ==
[2024-08-17 11:59] LABS: Abs Immature Grans 0.01 10^3/uL (0.0-0.06); Absolute Basophil Count 0.02 10^3/uL (0.0-0.2); Absolute Eosinophil Count 0.05 10^3/uL (0.0-0.7); Absolute Lymphocyte Count 0.91 10^3/uL (1.2-3.4); Absolute Monocyte Count 0.41 10^3/uL (0.1-0.8); Absolute Neutrophil Count 3.03 10^3/uL (1.2-6.7); Basophils % 0.5 %; Eosinophils % 1.1 %; HGB 14.1 g/dL (13.5-17.5); Immature Grans % 0.2 %; Lymphocytes % 20.5 %; MCH 32.6 pg (27.0-33.0); MCHC 34.4 % (32.0-36.0); MCV 95 fL (80-95); MPV 10.6 fL (8.0-11.0); Monocytes % 9.3 %; Neutrophils % 68.4 %; Platelet Count 130 10^3/uL (130-400); RBC 4.33 10^6/uL (4.36-5.78); RDW 12.8 % (11.8-14.1); RDW-SD 44.2 fL; WBC 4.43 10^3/uL (4.4-10.8)
[2024-08-17] MEDS: Normal Saline Flush 10 ML SYR IVP (12:10)
[2024-08-17 12:46] LABS: ALT 14 U/L (16-63); AST 13 U/L (15-37); Albumin 3.7 g/dL (3.4-5.0); Alkaline Phosphatase 120 U/L (46-116); Anion Gap 7.4 mmol/L (3-11); BUN 15 mg/dL (7-18); Bilirubin, Total 0.66 mg/dL (0.2-1.0); CO2 29.6 mmol/L (21.0-32.0); CREATININE 0.8 mg/dL (0.70-1.30); Calcium 9.7 mg/dL (8.5-10.1); Chloride 111 mmol/L (98-107); Estimated GFR 93.45 (mL/min/1.73m2); Glucose 103 mg/dL (74-106); Potassium 3.6 mmol/L (3.5-5.1); Sodium 148 mmol/L (136-145); Total Protein 7.2 g/dL (6.4-8.2)
[2024-08-17 18:29] LABS: CEA 12.6 ng/mL (See Note)
[2024-08-31 11:25] LABS: Abs Immature Grans 0.01 10^3/uL (0.0-0.06); Absolute Basophil Count 0.04 10^3/uL (0.0-0.2); Absolute Eosinophil Count 0.08 10^3/uL (0.0-0.7); Absolute Monocyte Count 0.47 10^3/uL (0.1-0.8); Absolute Neutrophil Count 3.21 10^3/uL (1.2-6.7); Basophils % 0.8 %; Eosinophils % 1.7 %; HCT 41.9 % (40.0-50.0); HGB 14.5 g/dL (13.5-17.5); Immature Grans % 0.2 %; Lymphocytes % 20.8 %; MCH 32.5 pg (27.0-33.0); MCHC 34.6 % (32.0-36.0); MCV 94 fL (80-95); MPV 11.2 fL (8.0-11.0); Monocytes % 9.8 %; Neutrophils % 66.7 %; Platelet Count 152 10^3/uL (130-400); RBC 4.46 10^6/uL (4.36-5.78); RDW 12.5 % (11.8-14.1); RDW-SD 43.3 fL; WBC 4.81 10^3/uL (4.4-10.8)
[2024-08-31 11:40] LABS: ALT 13 U/L (16-63); AST 16 U/L (15-37); Albumin 3.6 g/dL (3.4-5.0); Alkaline Phosphatase 127 U/L (46-116); Anion Gap 7.5 mmol/L (3-11); BUN 16 mg/dL (7-18); Bilirubin, Total 0.45 mg/dL (0.2-1.0); CO2 30.5 mmol/L (21.0-32.0); CREATININE 0.9 mg/dL (0.70-1.30); Calcium 9.2 mg/dL (8.5-10.1); Chloride 107 mmol/L (98-107); Estimated GFR 90.18 (mL/min/1.73m2); Glucose 108 mg/dL (74-106); Potassium 3.7 mmol/L (3.5-5.1); Sodium 145 mmol/L (136-145)
[2024-08-31 19:24] LABS: CEA 13.8 ng/mL (See Note)
== END 2024-09-02 23:59 | disposition home or self-care (01) ==
LOC: INF 01:52
PROVIDERS: PCP Physician Assistant Medical; Visit Provider Internal Medicine Hematology & Oncology
DX: C18.9 Malignant neoplasm of colon, unspecified (principal); Z45.2 Encounter for adjustment and management of vascular access device
CPT/HCPCS: 36591; 80053; 82378; 85025

== ENCOUNTER 2024-09-28 01:49 | Outpatient (RCR) | payer MEDICARE, SELFPAY ==
[2024-09-14] MEDS: Normal Saline Flush 10 ML SYR IVP (10:51)
[2024-09-14 11:06] LABS: Abs Immature Grans 0.01 10^3/uL (0.0-0.06); Absolute Basophil Count 0.02 10^3/uL (0.0-0.2); Absolute Eosinophil Count 0.07 10^3/uL (0.0-0.7); Absolute Lymphocyte Count 1.03 10^3/uL (1.2-3.4); Absolute Monocyte Count 0.45 10^3/uL (0.1-0.8); Absolute Neutrophil Count 2.93 10^3/uL (1.2-6.7); Basophils % 0.4 %; Eosinophils % 1.6 %; HCT 40.6 % (40.0-50.0); HGB 14.3 g/dL (13.5-17.5); Immature Grans % 0.2 %; Lymphocytes % 22.8 %; MCH 32.8 pg (27.0-33.0); MCHC 35.2 % (32.0-36.0); MCV 93 fL (80-95); Platelet Count 136 10^3/uL (130-400); RBC 4.36 10^6/uL (4.36-5.78); RDW 12.4 % (11.8-14.1); RDW-SD 42.3 fL; WBC 4.51 10^3/uL (4.4-10.8)
[2024-09-14 11:28] LABS: ALT 16 U/L (16-63); AST 13 U/L (15-37); Albumin 3.5 g/dL (3.4-5.0); Alkaline Phosphatase 120 U/L (46-116); BUN 15 mg/dL (7-18); CREATININE 0.9 mg/dL (0.70-1.30); Calcium 9.3 mg/dL (8.5-10.1); Chloride 109 mmol/L (98-107); Estimated GFR 90.18 (mL/min/1.73m2); Glucose 108 mg/dL (74-106); Potassium 3.7 mmol/L (3.5-5.1); Sodium 146 mmol/L (136-145); Total Protein 6.9 g/dL (6.4-8.2)
[2024-09-14 22:29] LABS: CEA 14.5 ng/mL (See Note)
[2024-09-28 11:26] LABS: Abs Immature Grans 0.02 10^3/uL (0.0-0.06); Absolute Basophil Count 0.04 10^3/uL (0.0-0.2); Absolute Eosinophil Count 0.06 10^3/uL (0.0-0.7); Absolute Lymphocyte Count 1.06 10^3/uL (1.2-3.4); Absolute Monocyte Count 0.43 10^3/uL (0.1-0.8); Absolute Neutrophil Count 3.28 10^3/uL (1.2-6.7); Basophils % 0.8 %; Eosinophils % 1.2 %; HCT 40.3 % (40.0-50.0); HGB 14.2 g/dL (13.5-17.5); Immature Grans % 0.4 %; Lymphocytes % 21.7 %; MCH 32.7 pg (27.0-33.0); MCHC 35.2 % (32.0-36.0); MCV 93 fL (80-95); MPV 10.9 fL (8.0-11.0); Monocytes % 8.8 %; Neutrophils % 67.1 %; Platelet Count 173 10^3/uL (130-400); RBC 4.34 10^6/uL (4.36-5.78); RDW 12.6 % (11.8-14.1); RDW-SD 42.9 fL; WBC 4.89 10^3/uL (4.4-10.8)
[2024-09-28 11:40] LABS: ALT 16 U/L (16-63); AST 11 U/L (15-37); Albumin 3.7 g/dL (3.4-5.0); Alkaline Phosphatase 116 U/L (46-116); Anion Gap 8.2 mmol/L (3-11); BUN 21 mg/dL (7-18); Bilirubin, Total 0.48 mg/dL (0.2-1.0); CO2 28.8 mmol/L (21.0-32.0); CREATININE 1.1 mg/dL (0.70-1.30); Calcium 9.1 mg/dL (8.5-10.1); Chloride 108 mmol/L (98-107); Estimated GFR 70.88 (mL/min/1.73m2); Glucose 98 mg/dL (74-106); Potassium 3.8 mmol/L (3.5-5.1); Sodium 145 mmol/L (136-145); Total Protein 7.2 g/dL (6.4-8.2)
[2024-09-28] MEDS: Normal Saline Flush 10 ML SYR IVP (11:57)
[2024-09-28 18:01] LABS: CEA 15.8 ng/mL (See Note)
== END 2024-10-02 23:59 | disposition home or self-care (01) ==
LOC: INF 01:49
PROVIDERS: PCP Physician Assistant Medical; Visit Provider Internal Medicine Hematology & Oncology
DX: C18.9 Malignant neoplasm of colon, unspecified (principal); Z45.2 Encounter for adjustment and management of vascular access device
CPT/HCPCS: 36591; 80053; 82378; 85025

== ENCOUNTER 2024-10-31 01:18 | Outpatient (RCR) | payer MEDICARE, SELFPAY ==
[2024-10-08] MEDS: Normal Saline Flush 10 ML SYR IVP (12:49)
[2024-10-12] MEDS: Normal Saline Flush 10 ML SYR IVP (11:24)
[2024-10-12 11:30] LABS: Abs Immature Grans 0.02 10^3/uL (0.0-0.06); Absolute Basophil Count 0.03 10^3/uL (0.0-0.2); Absolute Eosinophil Count 0.11 10^3/uL (0.0-0.7); Absolute Lymphocyte Count 1.09 10^3/uL (1.2-3.4); Absolute Monocyte Count 0.45 10^3/uL (0.1-0.8); Absolute Neutrophil Count 3.21 10^3/uL (1.2-6.7); Basophils % 0.6 %; Eosinophils % 2.2 %; HCT 43.3 % (40.0-50.0); HGB 14.8 g/dL (13.5-17.5); Immature Grans % 0.4 %; Lymphocytes % 22.2 %; MCH 32.3 pg (27.0-33.0); MCHC 34.2 % (32.0-36.0); MCV 95 fL (80-95); Monocytes % 9.2 %; Neutrophils % 65.4 %; Platelet Count 147 10^3/uL (130-400); RBC 4.58 10^6/uL (4.36-5.78); RDW 12.3 % (11.8-14.1); WBC 4.91 10^3/uL (4.4-10.8)
[2024-10-12 11:45] LABS: ALT 16 U/L (16-63); AST 15 U/L (15-37); Albumin 3.8 g/dL (3.4-5.0); Alkaline Phosphatase 117 U/L (46-116); Anion Gap 5.2 mmol/L (3-11); BUN 11 mg/dL (7-18); Bilirubin, Total 0.52 mg/dL (0.2-1.0); CO2 30.8 mmol/L (21.0-32.0); CREATININE 1.1 mg/dL (0.70-1.30); Calcium 9.4 mg/dL (8.5-10.1); Chloride 107 mmol/L (98-107); Estimated GFR 70.88 (mL/min/1.73m2); Glucose 106 mg/dL (74-106); Sodium 143 mmol/L (136-145); Total Protein 7.3 g/dL (6.4-8.2)
[2024-10-12 18:14] LABS: CEA 19.8 ng/mL (See Note)
[2024-10-17] MEDS: Normal Saline Flush 10 ML SYR IVP (12:35)
[2024-10-18 16:09] LABS: Misc Referral (MAYO) See Comments
[2024-10-26] MEDS: Normal Saline Flush 10 ML SYR IVP (11:25)
[2024-10-26 11:51] LABS: ALT 13 U/L (16-63); AST 11 U/L (15-37); Albumin 3.6 g/dL (3.4-5.0); Alkaline Phosphatase 123 U/L (46-116); Anion Gap 7.4 mmol/L (3-11); BUN 12 mg/dL (7-18); Bilirubin, Total 0.49 mg/dL (0.2-1.0); CO2 27.6 mmol/L (21.0-32.0); Calcium 8.9 mg/dL (8.5-10.1); Chloride 107 mmol/L (98-107); Estimated GFR 79.47 (mL/min/1.73m2); Glucose 97 mg/dL (74-106); Sodium 142 mmol/L (136-145); Total Protein 6.7 g/dL (6.4-8.2)
[2024-10-26 11:56] LABS: Abs Immature Grans 0.01 10^3/uL (0.0-0.06); Absolute Basophil Count 0.02 10^3/uL (0.0-0.2); Absolute Eosinophil Count 0.12 10^3/uL (0.0-0.7); Absolute Lymphocyte Count 0.96 10^3/uL (1.2-3.4); Absolute Monocyte Count 0.44 10^3/uL (0.1-0.8); Absolute Neutrophil Count 2.22 10^3/uL (1.2-6.7); Basophils % 0.5 %; Eosinophils % 3.2 %; HCT 39.5 % (40.0-50.0); Immature Grans % 0.3 %; Lymphocytes % 25.5 %; MCH 32.7 pg (27.0-33.0); MCHC 35.4 % (32.0-36.0); MCV 92 fL (80-95); Monocytes % 11.7 %; Neutrophils % 58.8 %; Platelet Count 205 10^3/uL (130-400); RBC 4.28 10^6/uL (4.36-5.78); RDW 12.7 % (11.8-14.1); WBC 3.77 10^3/uL (4.4-10.8)
[2024-10-27 07:29] LABS: CEA 14.6 ng/mL (See Note)
[2024-10-29] MEDS: Normal Saline Flush 10 ML SYR IVP (10:28)
[2024-10-29 11:09] LABS: Abs Immature Grans 0.01 10^3/uL (0.0-0.06); Absolute Basophil Count 0.03 10^3/uL (0.0-0.2); Absolute Eosinophil Count 0.09 10^3/uL (0.0-0.7); Absolute Lymphocyte Count 0.94 10^3/uL (1.2-3.4); Absolute Neutrophil Count 2.89 10^3/uL (1.2-6.7); Basophils % 0.7 %; Eosinophils % 2.1 %; HCT 39.3 % (40.0-50.0); Immature Grans % 0.2 %; Lymphocytes % 21.6 %; MCH 32.6 pg (27.0-33.0); MCHC 35.6 % (32.0-36.0); MCV 92 fL (80-95); MPV 10.4 fL (8.0-11.0); Monocytes % 9.2 %; Neutrophils % 66.2 %; Platelet Count 180 10^3/uL (130-400); RBC 4.29 10^6/uL (4.36-5.78); RDW 13.2 % (11.8-14.1); RDW-SD 42.5 fL; WBC 4.36 10^3/uL (4.4-10.8)
[2024-10-31] MEDS: Normal Saline Flush 10 ML SYR IVP (12:21)
== END 2024-11-02 23:59 | disposition home or self-care (01) ==
LOC: INF 01:18
PROVIDERS: PCP Physician Assistant Medical; Visit Provider Internal Medicine Hematology & Oncology
DX: C18.9 Malignant neoplasm of colon, unspecified (principal); Z45.2 Encounter for adjustment and management of vascular access device
CPT/HCPCS: 36591; 80053; 81404; 96523; 82378; 85025

== ENCOUNTER 2024-11-28 12:00 | Outpatient (RCR) | payer MEDICARE, SELFPAY ==
[2024-11-09] MEDS: Normal Saline Flush 10 ML SYR IVP (11:38)
[2024-11-09 11:49] LABS: Abs Immature Grans 0.02 10^3/uL (0.0-0.06); Absolute Basophil Count 0.01 10^3/uL (0.0-0.2); Absolute Eosinophil Count 0.11 10^3/uL (0.0-0.7); Absolute Lymphocyte Count 0.86 10^3/uL (1.2-3.4); Absolute Monocyte Count 0.42 10^3/uL (0.1-0.8); Absolute Neutrophil Count 1.74 10^3/uL (1.2-6.7); Basophils % 0.3 %; Eosinophils % 3.5 %; HCT 40.9 % (40.0-50.0); HGB 14.2 g/dL (13.5-17.5); Immature Grans % 0.6 %; Lymphocytes % 27.2 %; MCH 32.5 pg (27.0-33.0); MCHC 34.7 % (32.0-36.0); MCV 94 fL (80-95); MPV 10.1 fL (8.0-11.0); Monocytes % 13.3 %; Neutrophils % 55.1 %; Platelet Count 176 10^3/uL (130-400); RBC 4.37 10^6/uL (4.36-5.78); RDW 13.6 % (11.8-14.1); RDW-SD 45.1 fL; WBC 3.16 10^3/uL (4.4-10.8)
[2024-11-09 12:03] LABS: ALT 15 U/L (16-63); AST 15 U/L (15-37); Albumin 3.6 g/dL (3.4-5.0); Alkaline Phosphatase 111 U/L (46-116); Anion Gap 3.3 mmol/L (3-11); BUN 17 mg/dL (7-18); Bilirubin, Total 0.52 mg/dL (0.2-1.0); CO2 30.7 mmol/L (21.0-32.0); CREATININE 1.1 mg/dL (0.70-1.30); Calcium 8.8 mg/dL (8.5-10.1); Chloride 109 mmol/L (98-107); Estimated GFR 70.88 (mL/min/1.73m2); Glucose 103 mg/dL (74-106); Potassium 3.9 mmol/L (3.5-5.1); Sodium 143 mmol/L (136-145); Total Protein 6.9 g/dL (6.4-8.2)
[2024-11-09 22:55] LABS: CEA 13.4 ng/mL (See Note)
[2024-11-14] MEDS: Normal Saline Flush 10 ML SYR IVP (13:00)
[2024-11-23 11:28] LABS: Abs Immature Grans 0.01 10^3/uL (0.0-0.06); Absolute Basophil Count 0.02 10^3/uL (0.0-0.2); Absolute Eosinophil Count 0.08 10^3/uL (0.0-0.7); Absolute Lymphocyte Count 1.09 10^3/uL (1.2-3.4); Absolute Monocyte Count 0.45 10^3/uL (0.1-0.8); Absolute Neutrophil Count 1.85 10^3/uL (1.2-6.7); Basophils % 0.6 %; Eosinophils % 2.3 %; HCT 40.7 % (40.0-50.0); HGB 14.2 g/dL (13.5-17.5); Immature Grans % 0.3 %; Lymphocytes % 31.1 %; MCH 33.2 pg (27.0-33.0); MCHC 34.9 % (32.0-36.0); MCV 95 fL (80-95); MPV 10.1 fL (8.0-11.0); Monocytes % 12.9 %; Neutrophils % 52.8 %; Platelet Count 171 10^3/uL (130-400); RBC 4.28 10^6/uL (4.36-5.78); RDW 14.4 % (11.8-14.1); RDW-SD 49.2 fL
[2024-11-23] MEDS: Normal Saline Flush 10 ML SYR IVP (11:39)
[2024-11-23 11:43] LABS: ALT 17 U/L (16-63); AST 13 U/L (15-37); Albumin 3.8 g/dL (3.4-5.0); Alkaline Phosphatase 115 U/L (46-116); Anion Gap 6.7 mmol/L (3-11); BUN 16 mg/dL (7-18); Bilirubin, Total 0.76 mg/dL (0.2-1.0); CO2 29.3 mmol/L (21.0-32.0); CREATININE 1.1 mg/dL (0.70-1.30); Calcium 9.6 mg/dL (8.5-10.1); Chloride 107 mmol/L (98-107); Estimated GFR 70.88 (mL/min/1.73m2); Glucose 105 mg/dL (74-106); Potassium 4.2 mmol/L (3.5-5.1); Sodium 143 mmol/L (136-145); Total Protein 7.1 g/dL (6.4-8.2)
[2024-11-23 18:23] LABS: CEA 11.4 ng/mL (See Note)
[2024-11-28] MEDS: Normal Saline Flush 10 ML SYR IVP (14:34)
== END 2024-12-03 23:59 | disposition home or self-care (01) ==
LOC: INF 12:00
PROVIDERS: PCP Physician Assistant Medical; Visit Provider Internal Medicine Hematology & Oncology
DX: C18.9 Malignant neoplasm of colon, unspecified (principal); Z45.2 Encounter for adjustment and management of vascular access device
CPT/HCPCS: 36591; 80053; 96523; 82378; 85025

== ENCOUNTER 2024-12-07 11:19 | Outpatient (RCR) | payer MEDICARE, SELFPAY ==
[2024-12-07] MEDS: Normal Saline Flush 10 ML SYR IVP (11:24)
[2024-12-07 11:46] LABS: Abs Immature Grans 0.01 10^3/uL (0.0-0.06); Absolute Basophil Count 0.02 10^3/uL (0.0-0.2); Absolute Lymphocyte Count 1.09 10^3/uL (1.2-3.4); Absolute Monocyte Count 0.46 10^3/uL (0.1-0.8); Absolute Neutrophil Count 1.78 10^3/uL (1.2-6.7); Basophils % 0.6 %; Eosinophils % 2.9 %; HCT 40.8 % (40.0-50.0); HGB 14.5 g/dL (13.5-17.5); Immature Grans % 0.3 %; Lymphocytes % 31.5 %; MCH 33.6 pg (27.0-33.0); MCHC 35.5 % (32.0-36.0); MCV 94 fL (80-95); MPV 10.4 fL (8.0-11.0); Monocytes % 13.3 %; Neutrophils % 51.4 %; Platelet Count 189 10^3/uL (130-400); RBC 4.32 10^6/uL (4.36-5.78); RDW 14.4 % (11.8-14.1); RDW-SD 49.3 fL; WBC 3.46 10^3/uL (4.4-10.8)
[2024-12-07 12:05] LABS: ALT 19 U/L (16-63); AST 10 U/L (15-37); Albumin 3.8 g/dL (3.4-5.0); Alkaline Phosphatase 119 U/L (46-116); Anion Gap 6.5 mmol/L (3-11); BUN 18 mg/dL (7-18); Bilirubin, Total 0.63 mg/dL (0.2-1.0); CO2 28.5 mmol/L (21.0-32.0); CREATININE 1.1 mg/dL (0.70-1.30); Calcium 9.5 mg/dL (8.5-10.1); Chloride 108 mmol/L (98-107); Estimated GFR 70.88 (mL/min/1.73m2); Glucose 102 mg/dL (74-106); Sodium 143 mmol/L (136-145); Total Protein 7.2 g/dL (6.4-8.2)
[2024-12-07 18:50] LABS: CEA 11.7 ng/mL (See Note)
== END 2024-12-31 23:59 | disposition home or self-care (01) ==
LOC: INF 11:19
PROVIDERS: PCP Physician Assistant Medical; Visit Provider Internal Medicine Hematology & Oncology
DX: C18.9 Malignant neoplasm of colon, unspecified (principal)
CPT/HCPCS: 36591; 80053; 82378; 85025

== ENCOUNTER 2025-01-18 11:00 | Outpatient (RCR) | payer MEDICARE, SELFPAY ==
[2025-01-04 11:24] LABS: Abs Immature Grans 0.01 10^3/uL (0.0-0.06); Absolute Basophil Count 0.03 10^3/uL (0.0-0.2); Absolute Eosinophil Count 0.08 10^3/uL (0.0-0.7); Absolute Lymphocyte Count 1.11 10^3/uL (1.2-3.4); Absolute Monocyte Count 0.47 10^3/uL (0.1-0.8); Absolute Neutrophil Count 3.52 10^3/uL (1.2-6.7); Basophils % 0.6 %; Eosinophils % 1.5 %; HCT 43.6 % (40.0-50.0); HGB 15.3 g/dL (13.5-17.5); Immature Grans % 0.2 %; Lymphocytes % 21.3 %; MCH 33.8 pg (27.0-33.0); MCHC 35.1 % (32.0-36.0); MCV 96 fL (80-95); MPV 11.4 fL (8.0-11.0); Neutrophils % 67.4 %; Platelet Count 158 10^3/uL (130-400); RBC 4.53 10^6/uL (4.36-5.78); RDW 12.1 % (11.8-14.1); RDW-SD 43.3 fL; WBC 5.22 10^3/uL (4.4-10.8)
[2025-01-04] MEDS: Normal Saline Flush 10 ML SYR IVP (11:31)
[2025-01-04 11:48] LABS: ALT 14 U/L (16-63); AST 12 U/L (15-37); Albumin 3.7 g/dL (3.4-5.0); Alkaline Phosphatase 124 U/L (46-116); Anion Gap 7.9 mmol/L (3-11); BUN 18 mg/dL (7-18); Bilirubin, Total 0.77 mg/dL (0.2-1.0); CO2 28.1 mmol/L (21.0-32.0); Calcium 9.6 mg/dL (8.5-10.1); Chloride 109 mmol/L (98-107); Estimated GFR 79.47 (mL/min/1.73m2); Glucose 107 mg/dL (74-106); Potassium 4.1 mmol/L (3.5-5.1); Sodium 145 mmol/L (136-145); Total Protein 7.2 g/dL (6.4-8.2)
[2025-01-04 20:22] LABS: CEA 20.8 ng/mL (See Note)
[2025-01-09] MEDS: Normal Saline Flush 10 ML SYR IVP ×2 (12:53→12:54)
[2025-01-18] MEDS: Normal Saline Flush 10 ML SYR IVP (11:31)
[2025-01-18 11:49] LABS: Abs Immature Grans 0.02 10^3/uL (0.0-0.06); Absolute Basophil Count 0.02 10^3/uL (0.0-0.2); Absolute Eosinophil Count 0.07 10^3/uL (0.0-0.7); Absolute Lymphocyte Count 1.23 10^3/uL (1.2-3.4); Absolute Monocyte Count 0.35 10^3/uL (0.1-0.8); Absolute Neutrophil Count 2.27 10^3/uL (1.2-6.7); Basophils % 0.5 %; Eosinophils % 1.8 %; HCT 41.6 % (40.0-50.0); HGB 14.7 g/dL (13.5-17.5); Immature Grans % 0.5 %; Lymphocytes % 31.1 %; MCHC 35.3 % (32.0-36.0); MCV 93 fL (80-95); MPV 10.2 fL (8.0-11.0); Monocytes % 8.8 %; Neutrophils % 57.3 %; Platelet Count 193 10^3/uL (130-400); RBC 4.46 10^6/uL (4.36-5.78); RDW 12.1 % (11.8-14.1); RDW-SD 40.5 fL; WBC 3.96 10^3/uL (4.4-10.8)
[2025-01-18 12:19] LABS: ALT 18 U/L (16-63); AST 9 U/L (15-37); Albumin 3.8 g/dL (3.4-5.0); Alkaline Phosphatase 130 U/L (46-116); Anion Gap 8.2 mmol/L (3-11); BUN 22 mg/dL (7-18); Bilirubin, Total 0.4 mg/dL (0.2-1.0); CO2 27.8 mmol/L (21.0-32.0); Calcium 9.3 mg/dL (8.5-10.1); Chloride 108 mmol/L (98-107); Estimated GFR 79.47 (mL/min/1.73m2); Glucose 105 mg/dL (74-106); Potassium 3.9 mmol/L (3.5-5.1); Sodium 144 mmol/L (136-145); Total Protein 7.2 g/dL (6.4-8.2)
[2025-01-18 19:34] LABS: CEA 21.3 ng/mL (See Note)
[2025-01-23] MEDS: Normal Saline Flush 10 ML SYR IVP (12:09)
== END 2025-01-31 23:59 | disposition home or self-care (01) ==
LOC: INF 11:00
PROVIDERS: PCP Physician Assistant Medical; Visit Provider Internal Medicine Hematology & Oncology
DX: C18.9 Malignant neoplasm of colon, unspecified (principal); Z79.899 Other long term (current) drug therapy
CPT/HCPCS: 36591; 80053; 96523; 82378; 85025

== ENCOUNTER 2025-03-01 00:21 | Outpatient (RCR) | payer MEDICARE, SELFPAY ==
[2025-02-01 11:39] LABS: Abs Immature Grans 0.01 10^3/uL (0.0-0.06); Absolute Basophil Count 0.02 10^3/uL (0.0-0.2); Absolute Lymphocyte Count 1.15 10^3/uL (1.2-3.4); Absolute Monocyte Count 0.43 10^3/uL (0.1-0.8); Basophils % 0.5 %; Eosinophils % 2.6 %; HCT 42.9 % (40.0-50.0); Immature Grans % 0.3 %; Lymphocytes % 30.2 %; MCH 33.3 pg (27.0-33.0); MCV 95 fL (80-95); MPV 10.5 fL (8.0-11.0); Monocytes % 11.3 %; Neutrophils % 55.1 %; Platelet Count 178 10^3/uL (130-400); RDW 12.3 % (11.8-14.1); RDW-SD 41.7 fL; WBC 3.81 10^3/uL (4.4-10.8)
[2025-02-01 12:01] LABS: ALT 19 U/L (16-63); AST 14 U/L (15-37); Albumin 3.8 g/dL (3.4-5.0); Alkaline Phosphatase 134 U/L (46-116); Anion Gap 8.6 mmol/L (3-11); BUN 14 mg/dL (7-18); Bilirubin, Total 0.7 mg/dL (0.2-1.0); CO2 28.4 mmol/L (21.0-32.0); CREATININE 1.1 mg/dL (0.70-1.30); Calcium 9.6 mg/dL (8.5-10.1); Chloride 107 mmol/L (98-107); Estimated GFR 70.88 (mL/min/1.73m2); Glucose 110 mg/dL (74-106); Potassium 4.1 mmol/L (3.5-5.1); Sodium 144 mmol/L (136-145); Total Protein 7.2 g/dL (6.4-8.2)
[2025-02-01] MEDS: Normal Saline Flush 10 ML SYR IVP (12:15)
[2025-02-01 18:34] LABS: CEA 17.9 ng/mL (See Note)
[2025-02-06] MEDS: Normal Saline Flush 10 ML SYR IVP (12:06)
[2025-02-15] MEDS: Normal Saline Flush 10 ML SYR IVP (11:12)
[2025-02-15 11:18] LABS: Abs Immature Grans 0.02 10^3/uL (0.0-0.06); Absolute Basophil Count 0.01 10^3/uL (0.0-0.2); Absolute Eosinophil Count 0.06 10^3/uL (0.0-0.7); Absolute Monocyte Count 0.44 10^3/uL (0.1-0.8); Absolute Neutrophil Count 2.08 10^3/uL (1.2-6.7); Basophils % 0.3 %; Eosinophils % 1.7 %; HCT 39.7 % (40.0-50.0); HGB 14.1 g/dL (13.5-17.5); Immature Grans % 0.6 %; Lymphocytes % 25.6 %; MCH 33.5 pg (27.0-33.0); MCHC 35.5 % (32.0-36.0); MCV 94 fL (80-95); Monocytes % 12.5 %; Neutrophils % 59.3 %; Platelet Count 178 10^3/uL (130-400); RBC 4.21 10^6/uL (4.36-5.78); RDW 13.1 % (11.8-14.1); RDW-SD 43.8 fL; WBC 3.51 10^3/uL (4.4-10.8)
[2025-02-15 11:35] LABS: ALT 18 U/L (16-63); AST 16 U/L (15-37); Albumin 3.7 g/dL (3.4-5.0); Alkaline Phosphatase 128 U/L (46-116); Anion Gap 6.8 mmol/L (3-11); BUN 18 mg/dL (7-18); Bilirubin, Total 0.7 mg/dL (0.2-1.0); CO2 29.2 mmol/L (21.0-32.0); Calcium 9.6 mg/dL (8.5-10.1); Chloride 109 mmol/L (98-107); Estimated GFR 79.47 (mL/min/1.73m2); Glucose 112 mg/dL (74-106); Potassium 4.3 mmol/L (3.5-5.1); Sodium 145 mmol/L (136-145)
[2025-02-15 18:50] LABS: CEA 15.7 ng/mL (See Note)
[2025-02-20] MEDS: Normal Saline Flush 10 ML SYR IVP (12:07)
[2025-03-01] MEDS: Normal Saline Flush 10 ML SYR IVP (11:13)
[2025-03-01 11:23] LABS: Abs Immature Grans 0.01 10^3/uL (0.0-0.06); Absolute Basophil Count 0.02 10^3/uL (0.0-0.2); Absolute Eosinophil Count 0.06 10^3/uL (0.0-0.7); Absolute Lymphocyte Count 0.99 10^3/uL (1.2-3.4); Absolute Monocyte Count 0.48 10^3/uL (0.1-0.8); Absolute Neutrophil Count 2.11 10^3/uL (1.2-6.7); Basophils % 0.5 %; Eosinophils % 1.6 %; HCT 40.9 % (40.0-50.0); HGB 14.3 g/dL (13.5-17.5); Immature Grans % 0.3 %; MCH 33.3 pg (27.0-33.0); MCV 95 fL (80-95); MPV 10.7 fL (8.0-11.0); Monocytes % 13.1 %; Neutrophils % 57.5 %; Platelet Count 174 10^3/uL (130-400); RDW 13.6 % (11.8-14.1); RDW-SD 46.6 fL; WBC 3.67 10^3/uL (4.4-10.8)
[2025-03-01 12:17] LABS: ALT 20 U/L (16-63); AST 17 U/L (15-37); Albumin 3.9 g/dL (3.4-5.0); Alkaline Phosphatase 135 U/L (46-116); Anion Gap 7.7 mmol/L (3-11); BUN 21 mg/dL (7-18); Bilirubin, Total 0.6 mg/dL (0.2-1.0); CO2 29.3 mmol/L (21.0-32.0); CREATININE 0.9 mg/dL (0.70-1.30); Calcium 9.7 mg/dL (8.5-10.1); Chloride 108 mmol/L (98-107); Estimated GFR 90.18 (mL/min/1.73m2); Glucose 108 mg/dL (74-106); Potassium 4.3 mmol/L (3.5-5.1); Sodium 145 mmol/L (136-145); Total Protein 7.3 g/dL (6.4-8.2)
[2025-03-01 18:32] LABS: CEA 17.4 ng/mL (See Note)
== END 2025-03-02 23:59 | disposition home or self-care (01) ==
LOC: INF 00:21
PROVIDERS: PCP Physician Assistant Medical; Visit Provider Internal Medicine Hematology & Oncology
DX: C18.9 Malignant neoplasm of colon, unspecified (principal); Z79.899 Other long term (current) drug therapy; Z45.2 Encounter for adjustment and management of vascular access device
CPT/HCPCS: 36591; 80053; 96523; 82378; 85025

== ENCOUNTER 2025-03-06 00:02 | Outpatient (RCR) | payer MEDICARE, SELFPAY ==
[2025-03-06 11:18] VITALS: BP 123/72; PULSE 66; RESP 18; TEMP 36.2; O2SAT 99
[2025-03-06] MEDS: Normal Saline Flush 10 ML SYR IVP (11:18)
== END 2025-04-02 23:59 | disposition home or self-care (01) ==
LOC: INF 00:02
PROVIDERS: PCP Physician Assistant Medical; Visit Provider Internal Medicine Hematology & Oncology
DX: C18.9 Malignant neoplasm of colon, unspecified (principal)

== ENCOUNTER 2025-03-29 01:56 | Outpatient (RCR) | payer MEDICARE, SELFPAY ==
[2025-03-15 11:13] LABS: Abs Immature Grans 0.01 10^3/uL (0.0-0.06); Absolute Basophil Count 0.02 10^3/uL (0.0-0.2); Absolute Eosinophil Count 0.09 10^3/uL (0.0-0.7); Absolute Lymphocyte Count 1.11 10^3/uL (1.2-3.4); Absolute Monocyte Count 0.52 10^3/uL (0.1-0.8); Absolute Neutrophil Count 2.39 10^3/uL (1.2-6.7); Basophils % 0.5 %; Eosinophils % 2.2 %; HCT 38.6 % (40.0-50.0); HGB 13.8 g/dL (13.5-17.5); Immature Grans % 0.2 %; Lymphocytes % 26.8 %; MCH 33.5 pg (27.0-33.0); MCHC 35.8 % (32.0-36.0); MCV 94 fL (80-95); MPV 10.2 fL (8.0-11.0); Monocytes % 12.6 %; Neutrophils % 57.7 %; Platelet Count 185 10^3/uL (130-400); RBC 4.12 10^6/uL (4.36-5.78); RDW 13.9 % (11.8-14.1); RDW-SD 47.4 fL; WBC 4.14 10^3/uL (4.4-10.8)
[2025-03-15 11:31] LABS: ALT 15 U/L (16-63); AST 12 U/L (15-37); Albumin 3.7 g/dL (3.4-5.0); Alkaline Phosphatase 126 U/L (46-116); Anion Gap 5.8 mmol/L (3-11); BUN 28 mg/dL (7-18); Bilirubin, Total 0.5 mg/dL (0.2-1.0); CO2 28.2 mmol/L (21.0-32.0); CREATININE 1.1 mg/dL (0.70-1.30); Calcium 9.5 mg/dL (8.5-10.1); Chloride 106 mmol/L (98-107); Estimated GFR 70.88 (mL/min/1.73m2); Glucose 103 mg/dL (74-106); Potassium 3.9 mmol/L (3.5-5.1); Sodium 140 mmol/L (136-145)
[2025-03-15] MEDS: Normal Saline Flush 10 ML SYR IVP (11:46)
[2025-03-15 23:13] LABS: CEA 17.2 ng/mL (See Note)
[2025-03-20] MEDS: Normal Saline Flush 5 ML SYR IVP (13:41)
[2025-03-29 11:39] LABS: Abs Immature Grans 0.01 10^3/uL (0.0-0.06); Absolute Basophil Count 0.01 10^3/uL (0.0-0.2); Absolute Lymphocyte Count 0.82 10^3/uL (1.2-3.4); Absolute Monocyte Count 0.48 10^3/uL (0.1-0.8); Absolute Neutrophil Count 2.36 10^3/uL (1.2-6.7); Basophils % 0.3 %; Eosinophils % 2.6 %; HCT 38.7 % (40.0-50.0); HGB 13.4 g/dL (13.5-17.5); Immature Grans % 0.3 %; Lymphocytes % 21.7 %; MCH 33.3 pg (27.0-33.0); MCHC 34.6 % (32.0-36.0); MCV 96 fL (80-95); MPV 10.5 fL (8.0-11.0); Monocytes % 12.7 %; Neutrophils % 62.4 %; Platelet Count 198 10^3/uL (130-400); RBC 4.03 10^6/uL (4.36-5.78); RDW 13.7 % (11.8-14.1); RDW-SD 47.8 fL; WBC 3.78 10^3/uL (4.4-10.8)
[2025-03-29] MEDS: Normal Saline Flush 10 ML SYR IVP (12:07)
[2025-03-29 12:12] LABS: ALT 16 U/L (16-63); AST 20 U/L (15-37); Albumin 3.7 g/dL (3.4-5.0); Alkaline Phosphatase 121 U/L (46-116); Anion Gap 7.9 mmol/L (3-11); BUN 20 mg/dL (7-18); Bilirubin, Total 0.6 mg/dL (0.2-1.0); CO2 29.1 mmol/L (21.0-32.0); Calcium 9.4 mg/dL (8.5-10.1); Chloride 104 mmol/L (98-107); Estimated GFR 79.47 (mL/min/1.73m2); Glucose 106 mg/dL (74-106); Potassium 3.9 mmol/L (3.5-5.1); Sodium 141 mmol/L (136-145)
[2025-03-29 19:33] LABS: CEA 18.1 ng/mL (See Note)
== END 2025-04-02 23:59 | disposition home or self-care (01) ==
LOC: INF 01:56
PROVIDERS: PCP Physician Assistant Medical; Visit Provider Internal Medicine Hematology & Oncology
DX: C18.9 Malignant neoplasm of colon, unspecified (principal); Z45.2 Encounter for adjustment and management of vascular access device
CPT/HCPCS: 36591; 80053; 96523; 82378; 85025

== ENCOUNTER 2025-05-01 00:50 | Outpatient (RCR) | payer MEDICARE, SELFPAY ==
[2025-04-12 11:17] LABS: Abs Immature Grans 0.01 10^3/uL (0.0-0.06); Absolute Basophil Count 0.02 10^3/uL (0.0-0.2); Absolute Eosinophil Count 0.11 10^3/uL (0.0-0.7); Absolute Monocyte Count 0.46 10^3/uL (0.1-0.8); Absolute Neutrophil Count 2.38 10^3/uL (1.2-6.7); Basophils % 0.5 %; Eosinophils % 2.8 %; HCT 38.7 % (40.0-50.0); HGB 13.3 g/dL (13.5-17.5); Immature Grans % 0.3 %; Lymphocytes % 23.2 %; MCH 33.3 pg (27.0-33.0); MCHC 34.4 % (32.0-36.0); MCV 97 fL (80-95); MPV 10.8 fL (8.0-11.0); Monocytes % 11.9 %; Neutrophils % 61.3 %; Platelet Count 172 10^3/uL (130-400); RDW 13.3 % (11.8-14.1); RDW-SD 46.8 fL; WBC 3.88 10^3/uL (4.4-10.8)
[2025-04-12 11:33] LABS: ALT 18 U/L (16-63); AST 13 U/L (15-37); Albumin 3.9 g/dL (3.4-5.0); Alkaline Phosphatase 123 U/L (46-116); Anion Gap 8.7 mmol/L (3-11); BUN 27 mg/dL (7-18); Bilirubin, Total 0.6 mg/dL (0.2-1.0); CO2 27.3 mmol/L (21.0-32.0); CREATININE 1.1 mg/dL (0.70-1.30); Calcium 9.5 mg/dL (8.5-10.1); Chloride 108 mmol/L (98-107); Estimated GFR 70.44 (mL/min/1.73m2); Glucose 103 mg/dL (74-106); Potassium 3.9 mmol/L (3.5-5.1); Sodium 144 mmol/L (136-145); Total Protein 7.2 g/dL (6.4-8.2)
[2025-04-12 19:07] LABS: CEA 19.6 ng/mL (See Note)
[2025-04-17 13:11] VITALS: BP 138/72; PULSE 82; RESP 16; TEMP 36.5; O2SAT 97
[2025-04-17] MEDS: Normal Saline Flush 10 ML SYR IVP (13:13)
[2025-04-26] MEDS: Normal Saline Flush 10 ML SYR IVP (11:07)
[2025-04-26 11:36] LABS: Abs Immature Grans 0.01 10^3/uL (0.0-0.06); Absolute Basophil Count 0.03 10^3/uL (0.0-0.2); Absolute Eosinophil Count 0.15 10^3/uL (0.0-0.7); Absolute Lymphocyte Count 1.04 10^3/uL (1.2-3.4); Absolute Monocyte Count 0.55 10^3/uL (0.1-0.8); Absolute Neutrophil Count 2.29 10^3/uL (1.2-6.7); Basophils % 0.7 %; Eosinophils % 3.7 %; HCT 38.7 % (40.0-50.0); HGB 13.3 g/dL (13.5-17.5); Immature Grans % 0.2 %; Lymphocytes % 25.6 %; MCH 33.1 pg (27.0-33.0); MCHC 34.4 % (32.0-36.0); MCV 96 fL (80-95); MPV 10.7 fL (8.0-11.0); Monocytes % 13.5 %; Neutrophils % 56.3 %; Platelet Count 196 10^3/uL (130-400); RBC 4.02 10^6/uL (4.36-5.78); RDW-SD 45.9 fL; WBC 4.07 10^3/uL (4.4-10.8)
[2025-04-26 11:49] LABS: ALT 19 U/L (16-63); AST 14 U/L (15-37); Albumin 3.6 g/dL (3.4-5.0); Alkaline Phosphatase 122 U/L (46-116); Anion Gap 6.1 mmol/L (3-11); BUN 15 mg/dL (7-18); Bilirubin, Total 0.5 mg/dL (0.2-1.0); CO2 29.9 mmol/L (21.0-32.0); CREATININE 1.1 mg/dL (0.70-1.30); Calcium 9.1 mg/dL (8.5-10.1); Chloride 108 mmol/L (98-107); Estimated GFR 70.44 (mL/min/1.73m2); Glucose 108 mg/dL (74-106); Sodium 144 mmol/L (136-145); Total Protein 6.8 g/dL (6.4-8.2)
[2025-04-26 19:06] LABS: CEA 23.4 ng/mL (See Note)
== END 2025-05-02 23:59 | disposition home or self-care (01) ==
LOC: INF 00:50
PROVIDERS: PCP Physician Assistant Medical; Visit Provider Internal Medicine Hematology & Oncology
DX: C18.9 Malignant neoplasm of colon, unspecified (principal); Z79.899 Other long term (current) drug therapy; Z45.2 Encounter for adjustment and management of vascular access device
CPT/HCPCS: 36591; 80053; 96523; 82378; 85025

== ENCOUNTER 2025-05-17 11:00 | Outpatient (RCR) | payer MEDICARE, SELFPAY ==
[2025-05-17 11:20] LABS: Abs Immature Grans 0.01 10^3/uL (0.0-0.06); HCT 41.4 % (40.0-50.0); HGB 14.4 g/dL (13.5-17.5); Immature Grans % 0.2 %; MCH 33.4 pg (27.0-33.0); MCHC 34.8 % (32.0-36.0); MCV 96 fL (80-95); MPV 11.8 fL (8.0-11.0); Platelet Count 162 10^3/uL (130-400); RBC 4.31 10^6/uL (4.36-5.78); RDW 12.2 % (11.8-14.1); RDW-SD 43.5 fL; WBC 5.73 10^3/uL (4.4-10.8)
[2025-05-17] MEDS: Normal Saline Flush 10 ML SYR IVP (11:31)
[2025-05-17 11:35] LABS: ALT 17 U/L (16-63); AST 13 U/L (15-37); Albumin 3.7 g/dL (3.4-5.0); Alkaline Phosphatase 123 U/L (46-116); Anion Gap 7.4 mmol/L (3-11); BUN 17 mg/dL (7-18); Bilirubin, Total 0.9 mg/dL (0.2-1.0); CO2 32.6 mmol/L (21.0-32.0); Calcium 9.8 mg/dL (8.5-10.1); Chloride 105 mmol/L (98-107); Estimated GFR 78.98 (mL/min/1.73m2); Glucose 110 mg/dL (74-106); Potassium 4.0 mmol/L (3.5-5.1); Sodium 145 mmol/L (136-145); Total Protein 7.2 g/dL (6.4-8.2)
[2025-05-17 21:36] LABS: CEA 36.0 ng/mL (See Note)
== END 2025-06-02 23:59 | disposition home or self-care (01) ==
LOC: INF 11:00
PROVIDERS: PCP Physician Assistant Medical; Visit Provider Internal Medicine Hematology & Oncology
DX: C18.9 Malignant neoplasm of colon, unspecified (principal); Z45.2 Encounter for adjustment and management of vascular access device
CPT/HCPCS: 36591; 80053; 82378; 85025